=== PATIENT | male | born 1955 | race Caucasian/White ===

== ENCOUNTER → 2022-01-24 16:54 | Outpatient (CLI) | payer MEDICARE, SELFPAY ==
[2022-01-24 15:23] LABS: Chloride 107 mmol/L (98-107)
[2022-01-24 15:24] LABS: Potassium 4.5 mmoL/L (3.5-5.1); Sodium 141 mmol/L (136-145)
[2022-01-24 15:26] LABS: Alanine Aminotransferase 39 U/L (12-78); Albumin/Globulin Ratio 1.4 (1.1-1.8); Alkaline Phosphatase 91 U/L (38-126); Anion Gap 11.5 mEq/L (5-15); Aspartate Amino Transferase 49 U/L (17-59); Bilirubin,Total 0.5 mg/dl (0.2-1.3); Carbon Dioxide 27 mmol/L (22.0-30.0); Globulin 2.8 g/dL (1.3-3.2); Total Protein,Serum 6.8 g/dl (6.3-8.2)
[2022-01-24 15:27] LABS: Calcium 9.1 mg/dl (8.4-10.2); Chol/HDL Ratio 3.9 (1-3.5); Cholesterol 159 mg/dl (140-200); Glucose 131 mg/dl (74-100); HDL Cholesterol 41 mg/dl (40-60); Triglycerides 161 mg/dl (30-150); VLDL Cholesterol 32 mg/dL (0-40)
[2022-01-24 15:29] LABS: Basophils % 0.7 % (0.1-2.0); Eosinophils # 0.3 K/mm3 (0.0-0.4); Eosinophils % 4.1 % (0.1-12.0); Hematocrit 38.2 % (42.0-52.0); Hemoglobin 12.4 g/dL (14.1-18.0); Lymphocytes # 1.9 K/mm3 (0.7-4.5); Lymphocytes % 30.1 % (10-50); Mean Corpuscular HGB Conc 32.5 g/dL (31.8-35.4); Mean Corpuscular Hemoglobin 28.2 pg (27.0-31.2); Mean Corpuscular Volume 86.7 fl (80-94); Mean Platelet Volume 9.8 fl (7.4-10.4); Monocytes # 0.4 K/mm3 (0.1-1.0); Monocytes % 6.1 % (1.7-9.3); Neutrophils # 3.8 K/mm3 (1.8-7.8); Neutrophils % 59.1 % (37.0-80.0); Platelet Count 219 K/mm3 (142-424); Red Blood Count 4.41 M/mm3 (4.60-6.20); Red Cell Distribution Width 15.1 % (11.5-17.5); White Blood Count 6.4 K/mm3 (4.8-10.8)
[2022-01-24 15:40] LABS: Direct LDL Cholesterol 90.04 mg/dL (100-129)
[2022-01-24 18:10] LABS: Thyroid Stimulating Hormone 2.08 uIU/mL (0.465-4.68)
[2022-01-24 19:10] LABS: Blood Urea Nitrogen 18 mg/dl (9-20); Estimated Glomerular Filt Rate 97 ml/min (>60); GFR (African American) 117 ML/MIN (>60)
[2022-01-24 19:42] LABS: Prostate Specific Ag Screen 0.7 ng/ml (0.0-4.0)
[2022-01-30 11:39] LABS: Testosterone, Total, LC/MS 61.7 ng/dL (264.0-916.0); Testosterone,Free 0.7 pg/mL (6.6-18.1)
== END ==
PROVIDERS: PCP Family Medicine; Visit Provider Family Medicine
DX: E78.5 Hyperlipidemia, unspecified (principal); Z12.5 Encounter for screening for malignant neoplasm of prostate
CPT/HCPCS: 80053; 80061; 84402; 84403; 84443; 85025; G0103

== ENCOUNTER → 2022-09-08 09:38 | Outpatient (CLI) | payer MEDICARE, SELFPAY | PROVIDERS: PCP Family Medicine; Visit Provider Family Medicine | DX: N39.0 Urinary tract infection, site not specified (principal); N41.0 Acute prostatitis | CPT/HCPCS: 87086 ==

== ENCOUNTER → 2023-04-30 08:08 | Outpatient (CLI) | payer MEDICARE, SELFPAY ==
[2023-04-30 21:16] LABS: Alanine Aminotransferase 30 U/L (12-78); Albumin Level 4.1 g/dl (3.5-5.0); Albumin/Globulin Ratio 1.5 (1.1-1.8); Alkaline Phosphatase 87 U/L (38-126); Anion Gap 15.4 mEq/L (5-15); Aspartate Amino Transferase 33 U/L (17-59); Bilirubin,Total 0.4 mg/dl (0.2-1.3); Blood Urea Nitrogen 16 mg/dl (9-20); Calcium 8.7 mg/dl (8.4-10.2); Carbon Dioxide 24 mmol/L (22.0-30.0); Chloride 104 mmol/L (98-107); Chol/HDL Ratio 4.7 (1-3.5); Cholesterol 159 mg/dl (140-200); Estimated Glomerular Filt Rate 96 ml/min (>60); GFR (African American) 117 ML/MIN (>60); Globulin 2.8 g/dL (1.3-3.2); Glucose 109 mg/dl (74-100); HDL Cholesterol 34 mg/dl (40-60); Potassium 4.4 mmoL/L (3.5-5.1); Sodium 139 mmol/L (136-145); Total Protein,Serum 6.9 g/dl (6.3-8.2); Triglycerides 191 mg/dl (30-150); VLDL Cholesterol 38 mg/dL (0-40)
[2023-04-30 21:27] LABS: Direct LDL Cholesterol 90.35 mg/dL (100-129)
[2023-04-30 21:39] LABS: Basophils % 0.4 % (0.1-2.0); Eosinophils # 0.2 K/mm3 (0.0-0.4); Hematocrit 38.2 % (42.0-52.0); Hemoglobin 12.6 g/dL (14.1-18.0); Lymphocytes # 2.2 K/mm3 (0.7-4.5); Lymphocytes % 28.7 % (10-50); Mean Corpuscular Volume 94.1 fl (80-94); Mean Platelet Volume 10.9 fl (7.4-10.4); Monocytes # 0.5 K/mm3 (0.1-1.0); Monocytes % 5.8 % (1.7-9.3); Neutrophils # 4.9 K/mm3 (1.8-7.8); Neutrophils % 62.2 % (37.0-80.0); Platelet Count 175 K/mm3 (142-424); Red Blood Count 4.06 M/mm3 (4.60-6.20); Red Cell Distribution Width 14.1 % (11.5-17.5); White Blood Count 7.8 K/mm3 (4.8-10.8)
[2023-04-30 21:46] LABS: Prostate Specific Ag Screen 1.2 ng/ml (0.0-4.0); Thyroid Stimulating Hormone 2.69 uIU/mL (0.465-4.68)
== END ==
PROVIDERS: PCP Family Medicine; Visit Provider Family Medicine
DX: L40.50 Arthropathic psoriasis, unspecified (principal); Z12.5 Encounter for screening for malignant neoplasm of prostate; E78.5 Hyperlipidemia, unspecified; M25.551 Pain in right hip
CPT/HCPCS: 80053; 80061; 84443; 85025; G0103

== ENCOUNTER 2023-07-13 18:42 | Outpatient (CLI) | payer MEDICARE, SELFPAY ==
[2023-07-15 09:06] LABS: Testosterone,Total 33 ng/dL (264-916)
== END 2023-07-13 23:59 ==
LOC: LAB.DROPOF 18:43
PROVIDERS: PCP Family Medicine; Visit Provider Family Medicine
DX: E78.5 Hyperlipidemia, unspecified (principal)
CPT/HCPCS: 84403

== ENCOUNTER 2025-01-23 13:23 | Outpatient (CLI) | payer MEDICARE, SELFPAY ==
--- OUTSIDE RECORDS SUMMARY | 2019-07-07 06:30 | XMS_ITS | Continuity of Care Document ---
Author Organization [facility] Address [address] [place] [address] Phone Care Team Providers Care Rn Recovery Name Role Phone Trino OD, Isabel Unavailable Unavailable Allergies, Adverse Reactions, Alerts Substance Reaction Status Criticality No Known Allergies Active No Inform ation Medications Medication Instructions Dosage Effective Dates (start - stop) Status Comments moxifloxacin 0.5 % eye drops instill 1 drop by ophthalmic route 2 times every day 1 drop - Active Durezol 0.05 % eye drops instill 1 drop by ophthalmic route 2 times a day into the operative eye - Active Ilevro 0.3 % eye drops,suspension instill 1 drop by ophthalmic route every day to the operative eye - Active Vitamin C 500 mg tablet take 1 Capsule by oral route every day 1 Capsule - Active Stelara 90 mg/mL subcutaneous syringe inject 1 milliliter by subcutaneous route every 3 months - Active simvastatin 20 mg tablet take 1 tablet by oral route every day 20 MG - Active Prostate Health 160 mg-100 unit-100 mcg tablet take once a day - Active Aspirin Childrens 81 mg chewable tablet chew 1 tablet by oral route every day 81 MG - Active clobetasol 0.05 % topical cream apply by topical route 2 times every day a thin layer to the affected area(s) 0.00 - Active Co Q-10 100 mg capsule take 1 by oral route every day 1 - Active Procedures Procedure Date Post Op Visit Cataract Post Op Visit Cataract Ophthalmic Biometry W Iol Calculation Pr of Comp Unilateral Extracapsular Cataract Remov al With IOl Manual Or Flotation Tender Wo Endoscopic Post Op Visit Cataract Post Op Visit Cataract Extracapsular Cataract Remov al With IOl Manual Or Flotation Tender Wo Endoscopic OFFICE/OUTPATIENT VISIT, [facility] Ophthalmic Biometry W Iol Calculation Un ilateral Advance Directives Directive Yes / No Effective Date File Name No Information Encounters Encounter Description Practice Location Reason(s) For Visit Diagnoses Date Provider Providers Copied on Encounter [facility] , [address] [place], [address], tel:[phone] [facility] 3-4 week PHACO PO (chief complaint) Presence of intraocular lens 0 Trino Hall. [address] [place], [place], [id number] , [place]. tel:[phone] Other Provider: Dulce Joel, [address] [place] [address], [place], [address]. tel:[phone] erring Provider: Isabel Agrawal, [address] [place], [address] . tel:[phone] [facility] , [address] [place], [address], tel:[phone] [facility] 1 day Phaco (chief complaint) Pseudophakia 9 Emiliano López. [address] [place] [address], [address], [place], [place], [id number] . tel:[phone] Referring Provider: Rene Agrawal, [address] [place] [address] [address], [place], [address] . tel:[phone] [facility] , [address] [place], [address], tel:[phone] [facility] Nuclear sclerotic cataract of both eyesAge-relate d nuclear cataract, left eye 9 Emiliano López. [address] [place] [address], [address], [place], [place], [id number] . tel:[phone] Referring Provider: Rene Agrawal, [address] [place] [address] [address], [place], [address] . tel:[phone] [facility] , [address] [place], [address], [place] tel:[phone] [facility] No Information 9 [facility] [address] [place] [address], [address], [place], [place], [id number] . tel:[phone] [facility] , [address] [place], [address], [place] tel:[phone] [facility] 1 wk Phaco (chief complaint) Presence of intraocular lens 9 Trino Hall. [address] [place], [place], [id number] , [place]. tel:[phone] Referring Provider: Isabel Agrawal, [address] [place], [address] . tel:[phone] [facility] , [address] [place], [address], [place] tel:[phone] [facility] PO PCIOL OD (chief complaint) Presence of intraocular lens 9 Trino Hall. [address] [place], [place], [id number] , [place]. tel:[phone] Referring Provider: Isabel Agrawal, [address] [place], [address] . tel:[phone] [facility] , [address] [place], [address], [place] tel:[phone] [facility] Nuclear sclerotic cataract of both eyesAge-relate d nuclear cataract, right eye 9 [facility] [address] [place] [address], [address], [place], [place], [address] . tel:[phone] Referring Provider: Rene Agrawal, [address] [place] [address] [address], [place], [address] . tel:[phone] OFFICE/OUTPAT IENT VISIT, NEW [facility] , [address] [facility], [place], [address], [place] tel:[phone] ROS [facility] Cataract consult (chief complaint) Nuclear sclerotic cataract of both eyes 9 Emiliano López. [address], [address], [place], [place], [id number] . tel:[phone] Specialist : Dulce Joel, [address] [place] [address], [place], [address]. tel:[phone] erring Provider: Dulce Joel, [address] [place] [address], [place], [address]. tel:[phone] Family History Family Member Type Diagnosis Age At Onset Problem (finding) No family history of Gl aucoma Problem (finding) No family history of Re tinal disease Father Problem (finding) hypertension Father Problem (finding) cataract Problem (finding) No family history of Ca ncer, unknown Brother Problem (finding) Diabetes mellitus Payers Payer name Insurance type Covered green party ID Authoryolanda beaulieu(s) Twila Hernandez [facility] [place] [id number] Social History Type Description Quantity Date Captured Comments Alcohol Use Details Unknown Caffeine Use Details Unknown Tobacco Use Status No Information Smoking Status No Information Sex Male Chief Complaint And Reason For Visit From encounter dated '07/07/2019 10:30'. 3-4 week PHACO PO (chief complaint). Description: The 63 year old male presents for evaluation of 3-4 week PHACO PO in the left eye. Patient states his vision is good. He states he still has a floater in the right eye but other allison his vision has been good. He denies any flashes or eye pain. He has one more day of his drops. Reason For Referral Reason For Referral No Information Plan Of Treatment Date Type Action Status Goal Tobacco cessation counseling completed History Of Present Illness Encounter Date Complaint History Of Prese nt Illness 3-4 week PHACO PO The 63 year ol d male presents for evaluation of 3- 4 week PHACO PO in the left eye. Patient states his vision is good. He states he still has a floater in the right eye but other allison his vision has been good. He denies any flashes or eye pain. He has one more day of his drops. 1 day Phaco The 63 year old male presents for evaluation of 1 day Phaco in the left eye. Patient denies having any pain, flashes and new floaters. Patient feels that his vision good but states that he has a strong feeling that he needs to rub or dry his left eye. 1 wk Phaco The 63 year old male presents for evaluation of 1 wk Phaco in the right eye. Patient feels that his vision is much improved. Patient denies having any pain, flashes and floaters. PO PCIOL OD The 63 year old male presents for evaluation of same day PO PCIOL in the right eye. Pt states he feels 'fine and dandy' va is still a little blurry but denies issues with eye pain, flashes of light or floaters. Reiterated drop therapy schedule with pt - Moxi 2/0, Ilevro 1/0 and Dur 2/0. Cataract consult The 63 year old male presents for evaluation of Cataract consult in the right and left eyes. Patient states that he has known about the cataracts for about a year now. Patient states that over the last year his vision has significantly decreased in his right eye especially. Patient also has trouble driving at night due to glares. Patient denies having any pain, flashes and floaters. Patient feels that his vision has been worsening. Functional Status Date Functional Assessmen t No Information Instructions Date Instruction Additional Infor lillian Impression/Plan Related to Prese nce of intraocular lens Impression/Plan Related to Pseud ophakia Impression/Plan Related to Prese nce of intraocular lens Impression/Plan Related to Prese nce of intraocular lens Impression/Plan Assessments Type Assessment Date assessment Presence of intraocular lens Jul Patient Care Teams Name Effective Dates (start - stop) Status Members No Information
--- OUTSIDE RECORDS SUMMARY | 2020-09-07 10:39 | XMS_ITS | Encounter Summary ---
Author Organization [place] [address] Care Team Providers Care Asl Interpreter Name Role Phone Buster Su MD Primary Care Provider Encounter Details Date Type Department Care Team (Latest Contact Info) Description 09/07/2020 9:39 AM EST Hospital Encounter [facility] Referral Lab [address] [place], [place] [id number] Domo Ellis PA-C [address] [id number] Pain in right hip; Presence of right [...] 7:22 PM EDT Nathalia Salcedo RN * [place] Suicide Severity Rating Scale (Q shift for [...] EDT Office Visit [facility] [address] [place] [address] Negro Faria MD [address] [place] [address] documented as of this encounter Goals Goal [...] - 20 mm/hr 10/04/2020 12:19 PM EDT [facility] Blood Venipuncture / Unknown 10/04/2020 8:47 AM EDT 10/04/2020 8:47 AM EDT Domo Ellis PA-C HEMATOLOGY ORDERABLES Final Result [facility] [address] [id number] * (ABNORMAL) CBC WITH DIFF (10/04/2020 8:47 AM EDT) Pathologist [facility] WBC 7.5 3.7 - 10.3 x10(3)/mcL 10/04/2020 [...] 10/04/2020 11:36 AM EDT [facility] Comment:Neutrophils equals s egs plus bands Imm Gran% 0.3 % 10/04/2020 11:36 AM EDT [facility] Comment:Automated count of m etamyelocytes, myelocytes and promyelocytes. Lymph Percent 26.1 % 10/04/2020 11:36 AM EDT [facility] [place] Percent 8.2 % 10/04/2020 11:36 AM EDT [facility] Eos Percent 3.1 % 10/04/2020 11:36 AM EDT [facility] Baso Percent 0.8 % 10/04/2020 11:36 AM EDT [facility] Neut # 4.6 1.6 - 6.1 x10(3)/[facility] 10/04/2020 11:36 AM EDT [facility] [employer], [facility] Comment:Neutrophils equals s egs plus bands IMMGRAN# 0.0 0.0 - 0.1 x10(3)/mcL 10/04/2020 11:36 AM EDT [facility] Comment:Automated count of m etamyelocytes, myelocytes and promyelocytes. An absolute IG <0.1 is reported as 0.0. Lymph # 2.0 1.2 - 3.9 x10(3)/mcL 10/04/2020 11:36 AM EDT [facility] [place] # 0.6 0.3 - 0.9 x10(3)/[facility] 10/04/2020 11:36 AM EDT [facility] Eos# 0.2 0.0 - 0.5 x10(3)/[facility] 10/04/2020 11:36 AM EDT [facility], [facility] Baso # 0.1 0.0 - 0.1 x10(3)/[facility] 10/04/2020 11:36 AM EDT [facility] [employer], [facility] Blood Venipuncture / Unknown 10/04/2020 8:47 AM EDT 10/04/2020 8:47 AM EDT Domo Ellis PA-C HEMATOLOGY ORDERABLES Final Result [facility] [address] [facility] , [place] [address] * (ABNORMAL) C-REACTIVE PROTEIN (10/04/2020 8:47 AM EDT) CRP 13.16(H) <=5.00 mg/L 10/04/2020 12:01 PM EDT [facility] Blood Venipuncture / Unknown 10/04/2020 8:47 AM EDT 10/04/2020 8:47 AM EDT Domo Ellis PA-C CHEMISTRY ORDERABLES Final Result [facility] [address] [place] [address] , [place] [address] documented in this encounter Visit Diagnoses Diagnosis Pain in right hip Pain in joint, pelvic region and thigh Presence of right artificial hip joint Hip joint replacement by other means documented in this encounter Care Teams Asl Interpreter Relationship Specialty Start Date End Date Buster Su MD PCP - General Family Medicine 05/14/15 documented as of this encounter
--- OUTSIDE RECORDS SUMMARY | 2020-09-14 09:02 | XMS_ITS | Encounter Summary ---
Author Organization [place] [address] Care Team Providers Care Hatchery Supervisor Name Role Phone Buster Su MD Primary Care Provider [phone] Encounter Details Date Type Department Care Team (Latest Contact Info) Description 09/14/2020 9:02 AM EDT Hospital Encounter [facility] Referral Lab [address] [id number] Jemal Rey MD [address] [place] [address] Pain in right hip Social History Tobacco Use Types Packs/Day Years [...] 7:22 PM EDT Nathalia Salcedo RN * [place] Suicide Severity Rating Scale (Q shift for moderate and high) Question Answer Date of Assessment Author 1. In the past month, have y ou wished you were or wished you could go to sleep and not wake up? 0 04/04/2023 7:22 PM EDT Syke Bolanos RN 2. In the past month, [...] AM EDT Office Visit [facility] [address] [place] [address] Negro Faria MD [address] [place] [place] [address] [place] [address] Scheduled Orders Name Type Priority Associated Diagnoses Orde r Schedule GRAM STAIN (STAIN ONLY) Microbiology STAT Pain in right hip ONCE for 1 Occurrences starting 09/14/2020 until 10/19/2020 WOUND CULTURE (STAIN INCLUDED) Microbiology STAT Pain in right hip ONCE for 1 Occurrences starting 09/14/2020 until 10/19/2020 documented as of this encounter Goals Goal Patient Goal Type Associated Problems Recent Progress Patient-Stated? Author Blood Pressure < 140/90 Blood Pressure 114/70(12/27/ 2024 7:49 AM EST) Gloria Oliver Maintain a healthy diet, exercise regularly and maintain an ideal body weight General Gloria Oliver Stay Tobacco Free Lifestyle Gloria Oliver documented as of this encounter Visit Diagnoses Diagnosis Pain in right hip Pain in joint, pelvic region and thigh documented in this encounter Orders Lab Orders Without Results Count Last Ordered D ate First Ordered Date JOINT FLUID CELL COUNT 1 09/14/2020 documented in this encounter Care Teams Hatchery Supervisor Relationship Specialty Start Date End Date Buster Su MD PCP - General Family Medicine 05/14/15 documented as of this encounter
--- OUTSIDE RECORDS SUMMARY | 2020-09-21 10:03 | XMS_ITS | Encounter Summary ---
Author Organization [place] [address] Care Team Providers Care Crab Fisherman Name Role Phone Buster Su MD Primary Care Provider [phone] Encounter Details Date Type Department Care Team (Latest Contact Info) Description 09/21/2020 10:03 AM EDT Hospital Encounter SE Referral Lab 1 [place], [place] [id number] Domo Ellis PA-C [address] [place] [address] Pain in right hip; Presence of right [...] 7:22 PM EDT Nathalia Salcedo RN * [place] Suicide Severity Rating Scale (Q shift for [...] EDT Office Visit SEP H&V NPTFTT [address] [place] [address] Negro Faria MD [address] [place] [address] [place] [address] documented as of this encounter Goals Goal [...] RATE AUTOMATED (09/21/2020 10:12 AM EDT) Pathologist [facility] Sed Rate 24(H) 0 - 20 mm/hr 09/21/2020 12:12 PM EDT [facility] Blood Venipuncture / Unknown 09/21/2020 10:12 AM EDT 09/21/2020 10:12 AM EDT Domo Ellis PA-C HEMATOLOGY ORDERABLES Final Result [facility] [address] [place] [id number] * (ABNORMAL) CBC WITH DIFF (09/21/2020 10:12 AM EDT) Pathologist [facility] WBC 7.1 3.7 - 10.3 x10(3)/mcL 09/21/2020 [...] 09/21/2020 11:47 AM EDT [facility] Comment:Neutrophils equals s egs plus bands Imm Gran% 0.3 % 09/21/2020 11:47 AM EDT [facility], [facility] Comment:Automated count of m etamyelocytes, myelocytes and promyelocytes. Lymph Percent 27.7 % 09/21/2020 11:47 AM EDT [facility] Wake Percent 9.5 % 09/21/2020 11:47 AM EDT [facility] Eos Percent 3.1 % 09/21/2020 11:47 AM EDT [facility] Baso Percent 1.0 % 09/21/2020 11:47 AM EDT [facility] Neut # 4.1 1.6 - 6.1 x10(3)/[facility] 09/21/2020 11:47 AM EDT [facility], [facility] Comment:Neutrophils equals s egs plus bands IMMGRAN# 0.0 0.0 - 0.1 x10(3)/mcL 09/21/2020 11:47 AM EDT [facility], [facility] Comment:Automated count of m etamyelocytes, myelocytes and promyelocytes. An absolute IG <0.1 is reported as 0.0. Lymph # 2.0 1.2 - 3.9 x10(3)/mcL 09/21/2020 11:47 AM EDT [facility] Wake # 0.7 0.3 - 0.9 x10(3)/mcL 09/21/2020 11:47 AM EDT [facility], [facility] Eos# 0.2 0.0 - 0.5 x10(3)/[facility] 09/21/2020 11:47 AM EDT [facility], [facility] Baso # 0.1 0.0 - 0.1 x10(3)/[facility] 09/21/2020 11:47 AM EDT [facility], [facility] Blood Venipuncture / Unknown 09/21/2020 10:12 AM EDT 09/21/2020 10:12 AM EDT Domo Ellis PA-C HEMATOLOGY ORDERABLES Final Result [facility] [address] [facility] , [place] [address] * (ABNORMAL) C-REACTIVE PROTEIN (09/21/2020 10:12 AM EDT) CRP 22.62(H) <=5.00 mg/L 09/21/2020 3:55 PM EDT [facility] Blood Venipuncture / Unknown 09/21/2020 10:12 AM EDT 09/21/2020 10:12 AM EDT Domo Ellis PA-C CHEMISTRY ORDERABLES Final Result [facility] [address] [facility] , [place] [address] documented in this encounter Visit Diagnoses Diagnosis Pain in right hip Pain in joint, pelvic region and thigh Presence of right artificial hip joint Hip joint replacement by other means documented in this encounter Care Teams Crab Fisherman Relationship Specialty Start Date End Date Buster Su MD PCP - General Family Medicine 05/14/15 documented as of this encounter
--- OUTSIDE RECORDS SUMMARY | 2020-09-28 09:13 | XMS_ITS | Encounter Summary ---
Author Organization [place] [address] Care Team Providers Care Commis Chef Name Role Phone Buster Su MD Primary Care Provider Encounter Details Date Type Department Care Team (Latest Contact Info) Description 09/28/2020 9:13 AM EDT Hospital Encounter SE Referral Lab 1 [place], [place] [id number] Domo Ellis PA-C [address] [place] [address] Pain in right hip Social History Tobacco [...] 7:22 PM EDT Nathalia Salcedo RN * [place] Suicide Severity Rating Scale (Q shift for moderate and high) Question Answer Date of Assessment Author 1. In the past month, have y ou wished you were or wished you could go to sleep and not wake up? 0 04/04/2023 7:22 PM EDT Skye Bolanos, SHAYLA 2. In the past month, have y [...] EDT Office Visit SEP H&V NPTFTT [address] [place] [address] Negro Faria MD [address] [place] [address] [place] [address] documented as of this encounter Goals Goal [...] Last Ordered D ate First Ordered Date C-REACTIVE PROTEIN 1 09/28/2020 SEDIMENTATION RATE AUTOMATED 1 09/28/2020 documented in this encounter Care Teams Commis Chef Relationship Specialty Start Date End Date Buster Su MD PCP - General Family Medicine 05/14/15 documented as of this encounter
[2025-01-23 15:39] LABS: Hematocrit 37.7 % (42.0-52.0); Hemoglobin 11.3 g/dL (14.1-18.0); Immature Granulocytes % 0.2 %; Mean Corpuscular HGB Conc 30.0 g/dL (31.8-35.4); Mean Corpuscular Hemoglobin 26.3 pg (27.0-31.2); Mean Corpuscular Volume 87.7 fl (80-94); Nucleated Red Blood Cells % 0 %; Platelet Count 234 K/mm3 (142-424); Red Blood Count 4.30 M/mm3 (4.60-6.20); Red Cell Distribution Width-SD 49.4 fL; White Blood Count 10.3 K/mm3 (4.8-10.8)
[2025-01-23 16:08] LABS: Alanine Aminotransferase 20 U/L (12-78); Albumin Level 3.6 g/dl (3.5-5.0); Albumin/Globulin Ratio 1.2 (1.1-1.8); Alkaline Phosphatase 85 U/L (38-126); Aspartate Amino Transferase 23 U/L (17-59); Bilirubin,Total 0.4 mg/dl (0.2-1.3); Blood Urea Nitrogen 22 mg/dl (9-20); Calcium 9.2 mg/dl (8.4-10.2); Carbon Dioxide 27 mmol/L (22.0-30.0); Chloride 106 mmol/L (98-107); Cholesterol 142 mg/dl (140-200); Creatinine,Serum 1.10 mg/dl (0.66-1.25); Estimated Glomerular Filt Rate 66 ml/min (>60); GFR (African American) 80 ML/MIN (>60); Globulin 3.1 g/dL (1.3-3.2); Glucose 132 mg/dl (74-100); Sodium 140 mmol/L (136-145); Total Protein,Serum 6.7 g/dl (6.3-8.2); Triglycerides 132 mg/dl (30-150)
[2025-01-23 16:10] LABS: Anion Gap 12.1 mEq/L (5-15); HDL Cholesterol 37 mg/dl (40-60); Potassium 5.1 mmoL/L (3.5-5.1)
[2025-01-23 16:56] LABS: Hepatitis C Ab Qual. W/ RFX NEGATIVE (Negative)
[2025-01-24 05:09] LABS: Testosterone,Total 180 ng/dL (264-916)
--- OUTSIDE RECORDS SUMMARY | 2025-01-26 13:32 | XMS_ITS | Clinical Summary ---
Author Organization [facility] Address [facility] [place] [address] Care Team Providers Care Public Speaking Instructor Name Role Phone Domo Ellis PA-C Unavailable [phone] Social History Tobacco Use Types Packs/Day Years Used Date Smoking Tobacco: Never Assessed Sex and Gender Information Value Date Recorded Sex Assigned at Not on file Legal Sex Male 8:14 PM EDT Gender Identity Not on file Sexual Orientation Not on file Plan of Treatment Health Maintenance Due Date Last Done Comments Hepatitis C Screening 1955 DTap,Tdap,and Td (1 - Tdap) 10/01/1966 Colonoscopy 10/01/2000 PSA YEARLY 10/01/2005 Pneumococcal 50+ (1 of 1 - PCV) 10/01/2005 Shingrix (#1) 10/01/2005 Influenza Vaccine (#1) 2025 RSV Vaccine (60+ or ) (1 - 1-dose 75+ series) 10/01/2030 HPV Aged Out No longer eligi ble based on patient's age to complete this topic Meningococcal conjugate johnnie nt 4 (MCV4) Aged Out No longer eligible b ased on patient's age to complete this topic RSV Immunization (<20 months) Aged Out No longer eligible based on patient's age to complete this topic Care Teams Public Speaking Instructor Relationship Specialty Start Date End Date Domo Ellis PA-C PCP - MSSP Attributed Physician 07/02/21
--- OUTSIDE RECORDS SUMMARY | 2025-01-26 13:32 | XMS_ITS | Referral Summary ---
Author Organization [facility] Address [facility] [address] [place] [address] Care Team Providers Care Financial Management Analyst Name Role Phone Domo Ellis PA-C Unavailable Social History Tobacco Use Types Packs/Day Years Used Date Smoking Tobacco: Never Assessed Sex and Gender Information Value Date Recorded Sex Assigned at Not on file Legal Sex Male 8:14 PM EDT Gender Identity Not on file Sexual Orientation Not on file Plan of Treatment Not on file Care Teams Financial Management Analyst Relationship Specialty Start Date End Date Domo Ellis PA-C PCP - MSSP Attributed Physician 07/02/21
== END 2025-01-23 23:59 | disposition home or self-care (01) ==
LOC: LAB.DROPOF 01-26 13:24
PROVIDERS: PCP Family Medicine; Visit Provider Family Medicine
DX: E78.5 Hyperlipidemia, unspecified (principal); R79.89 Other specified abnormal findings of blood chemistry; M54.9 Dorsalgia, unspecified; R31.9 Hematuria, unspecified; Z11.59 Encounter for screening for other viral diseases; Z12.5 Encounter for screening for malignant neoplasm of prostate
CPT/HCPCS: 80053; 80061; 84403; 85025; 86803; 87086; 87088; 87186; 87389; G0103

== ENCOUNTER 2025-02-13 11:10 | Outpatient (CLI) | payer MEDICARE, SELFPAY ==
--- OUTSIDE RECORDS SUMMARY | 2020-09-07 10:39 | XMS_ITS | Encounter Summary ---
Author Organization [place] [address] Care Team Providers Care Waterside Worker Name Role Phone Buster Su MD Primary Care Provider [phone] Encounter Details Date Type Department Care Team (Latest Contact Info) Description 09/07/2020 9:39 AM EST Hospital Encounter [facility] Referral Lab 1 [place], [place] [id number] Domo Ellis PA-C [address] [id number] Pain in right hip; Presence of right artificial hip joint Social History Tobacco Use Types Packs/Day Years Used Date Smoking Tobacco: Some Days Cigarettes 0.5 45.8 Started: 01/30/1972; Last attempted to quit: 11/08/2017 Cigars Passive Smoke Exposure: Past Smokeless Tobacco: Former Chew Quit: 07/02/1976 Comments:quit in 2018 - occa sional cigar now Alcohol Use Standard Drinks/Week Comments Yes 0 (1 standard drink = 0.6 oz pur e alcohol) social Overall Financial Resource Strain (CARDIA) Answe r Date Recorded How hard is it for you to pa y for the very basics like food, housing, medical care, and heating? Not hard at all 04/05/2023 PHQ-2 Answer Date Recorded PHQ-2 Total Score 0 04/05/2023 Exercise Vital Sign Answer Date Recorde d On average, how many days pe r week do you engage in moderate to strenuous exercise (like a brisk walk)? 3 days 04/05/2023 On average, how many minutes do you engage in exercise at this level? 60 min 04/05/2023 Hunger Vital Sign Answer Date Recorded Within the past 12 months, y ou worried that your food would run out before you got the money to buy more. Never true 04/05/20 23 Within the past 12 months, t he food you bought just didn't last and you didn't have money to get more. Never true 04/05/2023 PRAPARE - Transportation Answer Date Re corded In the past 12 months, has l ack of transportation kept you from medical appointments or from getting medications? No 10/2022 In the past 12 months, has l ack of transportation kept you from meetings, work, or from getting things needed for daily living? No 04/05/2023 Sex and Gender Information Value Date Recorded Sex Assigned at Not on file Legal Sex Male 12:31 AM EDT Gender Identity Not on file Sexual Orientation Not on file COVID-19 Exposure Response Date Recorded In the last 10 days, have yo u been in contact with someone who was confirmed or suspected to have Coronavirus/COVID-19? No / Unsure 01/19/2023 10:22 AM EDT documented as of this encounter Functional Status * Alcohol Screening Score Answer Date of Assessment Author 1 04/04/2023 11:00 PM EDT Rajeev Moran RN * Drug Screening Score Answer Date of Assessment Author 0 04/04/2023 11:00 PM EDT Rajeev Moran RN * Question Answer Date of Assessment Author How often do you have a drin k containing alcohol? 1 04/04/2023 11:00 PM EDT Karey Moran RN How many drinks containing alcohol do you have on a typical day when you are drinking? 0 04/04/2023 11:00 PM EDT Karey Moran RN How often do you have six or more drinks on one occasion? 0 04/04/2023 11:00 PM EDT Rajeev Braxton RN AUDIT-C to Determine Rows 4-10 0 04/04/2023 11:00 PM EDT Rajeev Moran RN * Question Answer Date of Assessment Author Little interest or pleasure in doing things 0 04/05/2023 4:39 PM EDT Lynne Reese RN Feeling down, depressed, or hopeless 0 04/05/2023 4:39 PM EDT Lynne Reese RN PHQ-2 Total Score 0 04/05/2023 4:39 PM EDT Lynne Reese RN * PHQ-9 Total Score Answer Date of Assessment Author 0 04/05/2023 4:39 PM EDT Yunier Reese RN * Suicide Severity Rating Answer Date of Assessment Author No Risk 04/04/2023 7:22 PM EDT Nathalia Salcedo RN * [place] Suicide Severity Rating Scale (Q shift for moderate and high) Question Answer Date of Assessment Author 1. In the past month, have y ou wished you were or wished you could go to sleep and not wake up? 0 04/04/2023 7:22 PM EDT Skye Bolanos RN 2. In the past month, have y ou actually had any thoughts of killing yourself? (If no, skip to question 6) 0 04/04/2023 7:22 PM EDT Skye Salcedo RN 6. Have you ever done anythi ng, started to do anything, or prepared to do anything to end your life? 0 04/04/2023 7:22 PM EDT Skye Molina RN documented as of this encounter Plan of Treatment Upcoming Encounters Date Type Department Care Team (Late st Contact Info) Description 03/13/2025 9:00 AM EDT Office Visit [facility] [address] [place] [address] Negro Faria MD [address] [place] [address] documented as of this encounter Goals Goal Patient Goal Type Associated Problems Recent Progress Patient-Stated? Author Blood Pressure < 140/90 Blood Pressure 114/70(2023 7:49 AM EST) Gloria Oliver Maintain a healthy diet, exercise regularly and maintain an ideal body weight General Gloria Oliver Stay Tobacco Free Lifestyle Gloria Oliver documented as of this encounter Results * (ABNORMAL) SEDIMENTATION RATE AUTOMATED (10/04/2020 8:47 AM EDT) Sed Rate 33(H) 0 - 20 mm/hr 10/04/2020 12:19 PM EDT [facility] Blood Venipuncture / Unknown 10/04/2020 8:47 AM EDT 10/04/2020 8:47 AM EDT Domo Ellis PA-C HEMATOLOGY ORDERABLES Final Result [facility] [address] [id number] * (ABNORMAL) CBC WITH DIFF (10/04/2020 8:47 AM EDT) Pathologist [facility] WBC 7.5 3.7 - 10.3 x10(3)/mcL 10/04/2020 11:36 AM EDT [facility] RBC 5.05 4.60 - 6.10 x10(6)/mcL 10/04/2020 11:36 AM EDT [facility] Hgb 13.6(L) 13.7 - 17.5 g/dL 10/04/2020 11:36 AM EDT [facility] Hct 45.8 40.0 - 51.0 % 10/04/2020 11:36 AM EDT [facility] MCV 90.7 80.0 - 100.0 fL 10/04/2020 11:36 AM EDT [facility] MCH 26.9 26.0 - 34.0 pg 10/04/2020 11:36 AM EDT [facility] MCHC 29.7(L) 30.7 - 35.5 g/dL 10/04/2020 11:36 AM EDT [facility] RDW 14.9 <=14.9 % 10/04/2020 11:36 AM EDT [facility] Platelet 216 155 - 369 x10(3)/mcL 10/04/2020 11:36 AM EDT [facility] MPV 12.3 8.8 - 12.5 fL 10/04/2020 11:36 AM EDT [facility] Neut Percent 61.5 % 10/04/2020 11:36 AM EDT [facility] Comment:Neutrophils equals s egs plus bands Imm Gran% 0.3 % 10/04/2020 11:36 AM EDT [facility] Comment:Automated count of m etamyelocytes, myelocytes and promyelocytes. Lymph Percent 26.1 % 10/04/2020 11:36 AM EDT [facility] [place] Percent 8.2 % 10/04/2020 11:36 AM EDT [facility] Eos Percent 3.1 % 10/04/2020 11:36 AM EDT [facility] Baso Percent 0.8 % 10/04/2020 11:36 AM EDT [facility] Neut # 4.6 1.6 - 6.1 x10(3)/[facility] 10/04/2020 11:36 AM EDT [facility], [facility] Comment:Neutrophils equals s egs plus bands IMMGRAN# 0.0 0.0 - 0.1 x10(3)/mcL 10/04/2020 11:36 AM EDT [facility] Comment:Automated count of m etamyelocytes, myelocytes and promyelocytes. An absolute IG <0.1 is reported as 0.0. Lymph # 2.0 1.2 - 3.9 x10(3)/mcL 10/04/2020 11:36 AM EDT [facility] [place] # 0.6 0.3 - 0.9 x10(3)/[facility] 10/04/2020 11:36 AM EDT [facility] Eos# 0.2 0.0 - 0.5 x10(3)/[facility] 10/04/2020 11:36 AM EDT [facility], [facility] Baso # 0.1 0.0 - 0.1 x10(3)/[facility] 10/04/2020 11:36 AM EDT [facility] [employer], [facility] Blood Venipuncture / Unknown 10/04/2020 8:47 AM EDT 10/04/2020 8:47 AM EDT Domo Ellis PA-C HEMATOLOGY ORDERABLES Final Result [facility], [facility] [address] [facility] , [place] [address] * (ABNORMAL) C-REACTIVE PROTEIN (10/04/2020 8:47 AM EDT) CRP 13.16(H) <=5.00 mg/L 10/04/2020 12:01 PM EDT [facility] Blood Venipuncture / Unknown 10/04/2020 8:47 AM EDT 10/04/2020 8:47 AM EDT Domo Ellis PA-C CHEMISTRY ORDERABLES Final Result [facility] [address] [place] [address] , [place] [address] documented in this encounter Visit Diagnoses Diagnosis Pain in right hip Pain in joint, pelvic region and thigh Presence of right artificial hip joint Hip joint replacement by other means documented in this encounter Care Teams Waterside Worker Relationship Specialty Start Date End Date Buster Su MD PCP - General Family Medicine 05/14/15 documented as of this encounter
--- OUTSIDE RECORDS SUMMARY | 2020-09-14 09:02 | XMS_ITS | Encounter Summary ---
Author Organization [place] [address] Care Team Providers Care Licensed Marriage And Family Therapist Name Role Phone Buster Su MD Primary Care Provider Encounter Details Date Type Department Care Team (Latest Contact Info) Description 09/14/2020 9:02 AM EDT Hospital Encounter [facility] Referral Lab 1 [place] [address] Jemal Rey MD [address] [place] [address] Pain in right hip Social [...] 7:22 PM EDT Nathalia Salcedo RN * [place] Suicide Severity Rating Scale (Q shift for [...] AM EDT Office Visit [facility] [address] [place] [address] Negro Faria MD [address] [place] [address] [place] [address] Scheduled Orders Name Type Priority [...] 09/14/2020 documented in this encounter Care Teams Licensed Marriage And Family Therapist Relationship Specialty Start Date End Date Buster Su MD PCP - General Family Medicine 05/14/15 documented as of this encounter
--- OUTSIDE RECORDS SUMMARY | 2020-09-21 10:03 | XMS_ITS | Encounter Summary ---
Author Organization [place] [address] Care Team Providers Care Wild Animal Caretaker Name Role Phone Buster Su MD Primary Care Provider [phone] Encounter Details Date Type Department Care Team (Latest Contact Info) Description 09/21/2020 10:03 AM EDT Hospital Encounter SE Referral Lab 1 [place], [place] [id number] Domo Ellis PA-C [address] [place] [address] Pain in right hip; Presence of right [...] 7:22 PM EDT Nathalia Salcedo RN * [place] Suicide Severity Rating Scale (Q shift for [...] EDT Office Visit SEP H&V NPTFTT [address] [place] [address] Negro Faria MD [address] [place] [address] [place] [address] documented as of this encounter Goals Goal Patient Goal Type Associated Problems Recent Progress Patient-Stated? Author Blood Pressure < 140/90 Blood Pressure 114/70(2023 7:49 AM EST) Gloria Oliver Maintain a healthy diet, exercise regularly and maintain an ideal body weight General Gloria Oliver Stay Tobacco Free Lifestyle Gloria Oliver documented as of this encounter Results * (ABNORMAL) SEDIMENTATION RATE AUTOMATED (09/21/2020 10:12 AM EDT) Pathologist [facility] Sed Rate 24(H) 0 - 20 mm/hr 09/21/2020 12:12 PM EDT [facility] Blood Venipuncture / Unknown 09/21/2020 10:12 AM EDT 09/21/2020 10:12 AM EDT Domo Ellis PA-C HEMATOLOGY ORDERABLES Final Result [facility] [address] [place] [id number] * (ABNORMAL) CBC WITH DIFF (09/21/2020 10:12 AM EDT) Pathologist [facility] WBC 7.1 3.7 - 10.3 x10(3)/mcL 09/21/2020 11:47 AM EDT [facility] RBC 4.90 4.60 - 6.10 x10(6)/mcL 09/21/2020 11:47 AM EDT [facility] Hgb 13.4(L) 13.7 - 17.5 g/dL 09/21/2020 11:47 AM EDT [facility] Hct 43.2 40.0 - 51.0 % 09/21/2020 11:47 AM EDT [facility] MCV 88.2 80.0 - 100.0 fL 09/21/2020 11:47 AM EDT [facility] MCH 27.3 26.0 - 34.0 pg 09/21/2020 11:47 AM EDT [facility] MCHC 31.0 30.7 - 35.5 g/dL 09/21/2020 11:47 AM EDT [facility] RDW 14.6 <=14.9 % 09/21/2020 11:47 AM EDT [facility] Platelet 232 155 - 369 x10(3)/mcL 09/21/2020 11:47 AM EDT [facility] MPV 11.3 8.8 - 12.5 fL 09/21/2020 11:47 AM EDT [facility] Neut Percent 58.4 % 09/21/2020 11:47 AM EDT [facility] Comment:Neutrophils equals s egs plus bands Imm Gran% 0.3 % 09/21/2020 11:47 AM EDT [facility], [facility] Comment:Automated count of m etamyelocytes, myelocytes and promyelocytes. Lymph Percent 27.7 % 09/21/2020 11:47 AM EDT [facility] White Percent 9.5 % 09/21/2020 11:47 AM EDT [facility] Eos Percent 3.1 % 09/21/2020 11:47 AM EDT [facility] Baso Percent 1.0 % 09/21/2020 11:47 AM EDT [facility] Neut # 4.1 1.6 - 6.1 x10(3)/[facility] 09/21/2020 11:47 AM EDT [facility], [facility] Comment:Neutrophils equals s egs plus bands IMMGRAN# 0.0 0.0 - 0.1 x10(3)/mcL 09/21/2020 11:47 AM EDT [facility], [facility] Comment:Automated count of m etamyelocytes, myelocytes and promyelocytes. An absolute IG <0.1 is reported as 0.0. Lymph # 2.0 1.2 - 3.9 x10(3)/mcL 09/21/2020 11:47 AM EDT [facility] White # 0.7 0.3 - 0.9 x10(3)/mcL 09/21/2020 11:47 AM EDT [facility] Eos# 0.2 0.0 - 0.5 x10(3)/[facility] 09/21/2020 11:47 AM EDT [facility], [facility] Baso # 0.1 0.0 - 0.1 x10(3)/[facility] 09/21/2020 11:47 AM EDT [facility], [facility] Blood Venipuncture / Unknown 09/21/2020 10:12 AM EDT 09/21/2020 10:12 AM EDT Domo Ellis PA-C HEMATOLOGY ORDERABLES Final Result [facility], [facility] [address] [facility] , [place] [address] * (ABNORMAL) C-REACTIVE PROTEIN (09/21/2020 10:12 AM EDT) CRP 22.62(H) <=5.00 mg/L 09/21/2020 3:55 PM EDT [facility] Blood Venipuncture / Unknown 09/21/2020 10:12 AM EDT 09/21/2020 10:12 AM EDT Domo Ellis PA-C CHEMISTRY ORDERABLES Final Result [facility] [address] [facility] , [place] [address] documented in this encounter Visit Diagnoses Diagnosis Pain in right hip Pain in joint, pelvic region and thigh Presence of right artificial hip joint Hip joint replacement by other means documented in this encounter Care Teams Wild Animal Caretaker Relationship Specialty Start Date End Date Buster Su MD PCP - General Family Medicine 05/14/15 documented as of this encounter
--- OUTSIDE RECORDS SUMMARY | 2020-09-28 09:13 | XMS_ITS | Encounter Summary ---
Author Organization [place] [address] Care Team Providers Care Reheater Name Role Phone Buster Su MD Primary Care Provider [phone] Encounter Details Date Type Department Care Team (Latest Contact Info) Description 09/28/2020 9:13 AM EDT Hospital Encounter SE Referral Lab 1 [place], [place] [phone] Domo Ellis PA-C [address] [place] [address] Pain in right hip Social History Tobacco [...] 7:22 PM EDT Nathalia Salcedo RN * [place] Suicide Severity Rating Scale (Q shift for [...] EDT Office Visit SEP H&V NPTFTT [address] [place] [address] Negro Faria MD [address] [place] [address] [place] [address] documented as of this encounter [...] 09/28/2020 documented in this encounter Care Teams Reheater Relationship Specialty Start Date End Date Buster Su MD PCP - General Family Medicine 05/14/15 documented as of this encounter
[2025-02-13 16:03] LABS: Prostate Specific Ag, Diagnost 5.18 ng/ml (0.0-4.0)
--- OUTSIDE RECORDS SUMMARY | 2025-02-16 12:44 | XMS_ITS | Referral Summary ---
Author Organization [facility] Address [facility] [address] [place] [address] Care Team Providers Care Lighter Captain Name Role Phone Domo Ellis PA-C Unavailable Social History Tobacco Use Types Packs/Day Years Used Date Smoking Tobacco: Never Assessed Sex and Gender Information Value Date Recorded Sex Assigned at Not on file Legal Sex Male 8:14 PM EDT Gender Identity Not on file Sexual Orientation Not on file Plan of Treatment Not on file Care Teams Lighter Captain Relationship Specialty Start Date End Date Domo Ellis PA-C PCP - MSSP Attributed Physician 07/02/21
--- OUTSIDE RECORDS SUMMARY | 2025-02-16 12:44 | XMS_ITS | Clinical Summary ---
Author Organization [facility] Address [facility] [place] [address] Care Team Providers Care Bicycle Racer Name Role Phone Domo Ellis PA-C Unavailable [...] age to complete this topic Care Teams Bicycle Racer Relationship Specialty Start Date End Date Domo Ellis PA-C PCP - MSSP Attributed Physician 07/02/21
--- OUTSIDE RECORDS SUMMARY | 2025-02-16 12:45 | XMS_ITS | Continuity of Care Document ---
Author Organization [facility] Address [facility] [place] [address] Phone Care Team Providers Care Restrooms Or Lounges Maid Name Role Phone Buster Su MD Primary Care Provider [phone] Encounters Date Type Department Care Team Description 07/24/2024 Telephone SEP H&V NPTFTT [address] [place] [address] Negro Faria MD Results (echo) 07/24/2024 7:54 AM EST - 07/24/2024 11:59 PM EST Hospital Encounter [facility] E[facility] [address] [place] [address] Negro Faria MD MOHIT (obstructive sleep apnea) Discharge Disposition: Home or Self Care 06/27/2024 8:00 AM EST Office Visit SEP H&V NPTFTT [address] [place] [address] Negro Faria MD MOHIT (obstructive sleep apnea) (Primary Dx) 06/22/2024 Travel 06/05/2024 11:40 AM EST - 06/05/2024 11:59 PM EST Hospital Encounter [facility] [place] [address] Actinic keratosis (Primary Dx); Exposure to sunlight, subsequent encounter; Exposure to sunlight, initial encounter; Tinea cruris; Psoriasis vulgaris; Encounter for long-term (current) use of medications; Melanocytic nevus of trunk; Other melanin hyperpigmentation; Other seborrheic keratosis; Other benign neoplasm of skin of left lower limb, including hip; Other specified counseling Discharge Disposition: Home or Self Care 02/01/2024 Travel 01/16/2024 Travel 06/05/2023 11:39 AM EST - 06/05/2023 11:59 PM EST Hospital Encounter [facility] [place] [address] Melanocytic nevus of trunk (Primary Dx); Other melanin hyperpigmentation; Other seborrheic keratosis; Other specified counseling; Psoriasis vulgaris; 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 Discharge Disposition: Home or Self Care 04/06/2023 9:30 AM EDT - 04/06/2023 10:30 AM EDT Surgery [facility] MIGRATORY [facility] [place] [address] Pavan Byrd MD CORONARY ANGIOGRAM / CARDIAC CATHETERIZATION 04/04/2023 7:09 PM EDT - 04/06/2023 5:53 PM EDT Hospital Encounter EDG 4D TCU [place] [id number] Greta Trevino MD Goetz, Kevin R, MD Atypical chest pain (Primary Dx); Chest pain, unspecified type Discharge Disposition: Home or Self Care 04/05/2023 Telephone [facility] [place] [id number] Batool Hopkins MD Prior Authorization ([facility]) 04/04/2023 Travel 01/19/2023 Travel 01/19/2023 10:23 AM EDT - 01/19/2023 11:59 PM EDT Hospital Encounter [facility] [address] [place] [address] Indra Coronel MD Gross hematuria Discharge Disposition: Home or Self Care 01/19/2023 9:30 AM EDT Office Visit SEP H&V NPTFTT [address] [place] [address] Weston Coles MD Primary hypertension (Primary Dx); Mixed hyperlipidemia; Family history of early CAD; Atypical chest pain; Rapid palpitations 01/04/2023 Orders Only [facility] [place] [address] [place] [address] Therese Warren Status post total replacement of right hip (Primary Dx) 12/04/2022 1:15 PM EDT Ancillary Procedure Fanta Bowden [address] [place] [address] Domo Ellis, RYLEEC Status post total replacement of right hip 12/04/2022 1:00 PM EDT Office Visit Fanta [place] [address] [place] [address] Domo Ellis PA-C Status post total replacement of right hip (Primary Dx) 08/08/2022 Travel 08/08/2022 11:42 AM EST - 08/08/2022 11:59 PM EST Hospital Encounter [facility] [address] [place] [address] Psoriatic arthritis (HCC) (Primary Dx) Discharge Disposition: Home or Self Care 07/31/2022 11:15 AM EST Ancillary Procedure Fanta [place] [address] [place] [facility] Domo Ellis, DARSHAN-C Status post revision of total hip 07/31/2022 11:00 AM EST Office Visit Fanta [address] [place] [address] Domo Ellis PA-C Status post revision of total hip (Primary Dx) 05/03/2022 Travel 05/03/2022 11:43 AM EDT - 05/03/2022 11:59 PM EDT Hospital Encounter [facility] [address] [place] [address] Psoriatic arthritis (HCC) (Primary Dx) Discharge Disposition: Home or Self Care 02/08/2022 Travel 02/08/2022 12:25 PM EDT - 02/08/2022 11:59 PM EDT Hospital Encounter [facility] [address] [place] [address] Psoriatic arthritis (HCC) (Primary Dx) Discharge Disposition: Home or Self Care 01/06/2022 9:30 AM EDT Office Visit SEP H&V NPTFTT [address] [place] [address] Weston Coles MD Atypical chest pain (Primary Dx); Family history of early CAD; Primary hypertension; Mixed hyperlipidemia 12/19/2021 11:30 AM EDT Ancillary Procedure [address] [address] Domo Ellis PA-C Status post total replacement of right hip 12/19/2021 11:15 [place] [address] Domo Ellis PA-C Status post revision of total hip (Primary Dx) 12/01/2021 Orders Only [place] [address] Brayan Gao, PharmD 11/17/2021 Travel 11/17/2021 11:41 AM EDT - 11/17/2021 11:59 PM EDT Hospital Encounter [facility] [address] [place] [phone] Psoriatic arthritis (HCC) (Primary Dx) Discharge Disposition: Home or Self Care 08/25/2021 Travel 08/25/2021 12:13 PM EST - 08/25/2021 11:59 PM EST Hospital Encounter [facility] [address] [place] [address] Psoriatic arthritis (HCC) (Primary Dx) Discharge Disposition: Home or Self Care 06/21/2021 Orders Only [facility] [address] [place] [address] Domo Ellis PA-C Status post total replacement of right hip (Primary Dx) 06/20/2021 2:45 PM EST Ancillary Procedure [address] [address] Domo Ellis PA-C Right hip pain 06/20/2021 2:30 PM EST Office Visit [address] [address] Domo Ellis PA-C Right hip pain (Primary Dx) 06/02/2021 Travel 06/02/2021 11:53 AM EST - 06/02/2021 11:59 PM EST Hospital Encounter [facility] [address] [place] [address] Psoriatic arthritis (HCC) (Primary Dx) Discharge Disposition: Home or Self Care 05/30/2021 [place] [address] Jemal George MD Orders 05/12/2021 11:00 [place] [address] Kathi Soto ATC Status post total replacement of right hip (Primary Dx) 05/06/2021 9:30 AM [place] [address] Jemal George MD Status post total replacement of right hip 05/06/2021 9:45 AM EDT Office Visit [place] [phone] Jemal George MD Status post total replacement of right hip (Primary Dx) 04/28/2021 11:15 AM EDT Office Visit [facility] [address] [place] [address] Domo Ellis PA-C Status post total replacement of right hip (Primary Dx) 04/21/2021 10:59 AM EDT - 04/23/2021 2:11 PM EDT Hospital Encounter EDG 7D [facility] [place] [address] Jemal George MD Presence of right artificial hip joint Discharge Disposition: Home Health Care Svc 04/21/2021 Telephone [place] [phone] Jemal George MD Medication Question (DOSAGE COMBINATION ) 04/21/2021 Travel 04/21/2021 2:00 PM EDT - 04/21/2021 4:00 PM EDT [facility] [place] [address] Jemal George MD TOTAL HIP OR CHERYLE ARTHROPLASTY REVISION -POSTERIOR LATERAL/ POSITION 04/21/2021 2:29 PM EDT Anesthesia Event ED[facility] 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 [address] Covid19, Edg Lab [place] Chavez Pre-op testing; Encounter for laboratory testing for COVID-19 virus Discharge Disposition: Home or Self Care 04/15/2021 12:05 PM EDT [place] [address] Jemal George MD Left hip pain 04/15/2021 11:30 [place] [address] Domo Ellis PA-C Left hip pain (Primary Dx) 04/13/2021 [place] [address] Quiana Falk PA-C 04/13/2021 Travel 04/13/2021 8:42 AM EDT - 04/13/2021 1:33 PM EDT Hospital Encounter [facility] Draw [facility] [address] [address] [address] [place] [address] Presence of right artificial hip joint Discharge Disposition: Home or Self Care 04/13/2021 1:34 PM EDT - 04/13/2021 11:59 PM EDT Hospital Encounter [address] [place] [phone] Domo Ellis PA-C Presence of right artificial hip joint Discharge Disposition: Home or Self Care 04/13/2021 8:15 AM EDT Office Visit [facility] [address] [place] [phone] Jemal Rey MD Right hip pain (Primary Dx); Presence of right artificial hip joint 04/12/2021 Orders [facility] [address] [place], [place] [id number] Domo Ellis PA-C Presence of right artificial hip joint (Primary Dx) 04/11/2021 1:45 PM EDT Office Visit [address] [address] Eric Christianson MD Presence of right artificial hip joint (Primary Dx) 04/08/2021 11:17 AM EDT - 04/08/2021 11:59 PM EDT Hospital Encounter [facility] [facility] [address] [place] [phone] Gay Solares APRN Hummel, Matthew T, MD Discharge Disposition: Home or Self Care 04/08/2021 Travel 04/08/2021 10:48 AM EDT - 04/08/2021 11:16 AM EDT Hospital Encounter EDG PRE-ADMIT TESTING [facility] 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, subsequent encounter (Primary Dx); Pain; Insomnia, unspecified type; Constipation, unspecified constipation type; Healthcare maintenance; Itching; Postoperative anemia; Nausea; DVT prophylaxis; Hyperlipidemia, unspecified hyperlipidemia type; Seasonal allergies; Morbid obesity with BMI of 40.0-44.9, adult (HCC); Infection of prosthetic joint, initial encounter; History of removal of joint prosthesis of right hip due to infection Discharge Disposition: Home or Self Care 03/08/2021 Orders Only [facility] [address] [facility] 100 [place] [address] Jemal George MD Presence of right artificial hip joint (Primary Dx) 02/01/2021 5:30 PM EDT - 02/24/2021 1:45 PM EDT Hospital Encounter FTT [address] [address] Francisca Munoz MD Insomnia, unspecified type (Primary Dx); Pain; Constipation, unspecified constipation type; Healthcare maintenance; History of removal of joint prosthesis of right hip due to infection; Infection of prosthetic joint, initial encounter; Hyperlipidemia, unspecified hyperlipidemia type; Arthritis; DVT prophylaxis; Postoperative anemia; Seasonal allergies; Tuberculosis screening; Itching; Morbid obesity with BMI of 40.0-44.9, adult (HCC); Nausea Discharge Disposition: Assisted Facility 02/04/2021 Plan of Care Documentation [facility] [address] [place] [address] 02/01/2021 Travel 01/28/2021 12:56 PM EDT - 02/01/2021 4:59 PM EDT Hospital Encounter EDG 7D [facility] [place] [address] Jemal George MD Presence of right artificial hip joint; Presence of right artificial hip joint Discharge Disposition: Assisted Facility 01/28/2021 Travel 01/28/2021 3:15 PM EDT - 01/28/2021 6:15 PM EDT Surgery EDG PERIOP [facility] [address] [place], [place] [address] Jemal George MD TOTAL HIP EXPLANTATION -ANTERIOR 01/28/2021 3:01 PM EDT Anesthesia Event [facility]G PERIOP [facility] [address] [place], [place] [address] Luis Cameron MD Powell, Jeanne, APRN 01/24/2021 Travel 01/24/2021 12:49 PM EDT - 01/24/2021 11:59 PM EDT Hospital Encounter EDG PRE-ADMIT TESTING [facility] [address] [place], [place] [address] Discharge Disposition: Home or Self Care 01/24/2021 10:39 AM EDT - 01/24/2021 12:48 PM EDT Hospital Encounter EDG LAB [address] DR Luis [place], [facility] Covid19, Edg Lab [place] Chavez Pre-op testing; Encounter for laboratory testing for COVID-19 virus Discharge Disposition: Home or Self Care 01/21/2021 Telephone [facility] H&V CV [place] [address] [place] [address] Weston Coles MD Cardiology Clearance 01/21/2021 Telephone [facility] [address] [place] [phone] Jemal George MD Other (CLEARANCE FOR SURGERY) 01/19/2021 Travel 01/19/2021 11:57 AM EDT - 01/19/2021 11:59 PM EDT Hospital Encounter [place] [address] Covid19, Edg Lab [place] Chavez Pre-op testing; Encounter for laboratory testing for COVID-19 virus Discharge Disposition: Home or Self Care 01/19/2021 Orders Only [facility] [place] [address] [place] [address] Jemal George MD Presence of right artificial hip joint (Primary Dx) 01/19/2021 Orders Only [facility] [place] [address] [place] [address] Anahy Hastings PA-C History of right hip replacement (Primary Dx) 01/18/2021 Telephone [facility] [address] [address] Dionne Goldberg ATC Patient Question 01/12/2021 [place] [address] Domo Ellis PA-C Patient Question 01/11/2021 8:15 AM EDT Office Visit [facility] [address] [facility] [address] [place] [address] Domo Ellis PA-C History of right hip replacement (Primary Dx) 01/06/2021 Travel 01/06/2021 9:00 AM EDT Office Visit [facility] H&V CV [place] [address] [place] [address] Weston Coles MD Atypical chest pain (Primary Dx); Essential hypertension; Mixed hyperlipidemia 01/04/2021 [place] [address] Jemal George MD Patient Question 12/20/2020 3:40 PM EDT Clinical Support [facility] [address] [place] [address] Gloria Santo History of right hip replacement 12/20/2020 2:30 PM EDT Office Visit [place] [phone] Eric Christianson MD Right hip joint effusion (Primary Dx) 12/20/2020 2:00 PM EDT Office Visit [address] [phone] Domo Ellis PA-C History of right hip replacement (Primary Dx) 10/04/2020 10:00 AM EDT Clinical Support [facility] [address] [place] [address] Jacquelyn Duckworth Pain in right hip; Presence of right artificial hip joint 09/28/2020 9:13 AM EDT Hospital Encounter [facility] 1 [place] [address] Domo Ellis PA-C Pain in right hip 09/21/2020 10:10 AM EDT Clinical Support [facility] [address] [place] [address] Gloria Santo Pain in right hip; Presence of right artificial hip joint 09/21/2020 10:03 AM EDT Hospital Encounter [facility] Referral Lab 1 [place] [address] Domo Ellis PA-C Pain in right hip; Presence of right artificial hip joint 09/21/2020 Travel 09/16/2020 Travel 09/16/2020 7:57 AM EDT - 09/16/2020 11:59 PM EDT Hospital Encounter EDG [facility] [place] [address] Domo Ellis PA-C Discharge Disposition: Home or Self Care 09/16/2020 7:56 AM EDT Hospital Encounter EDG [facility] [place] [address] Domo Ellis PA-C Primary osteoarthritis of right hip; Pain due to total hip replacement, initial encounter Discharge Disposition: Home or Self Care 09/14/2020 Orders Only [facility] [address] [facility] 100 [place] [address] Jocelyn Gallardo, DPT 09/14/2020 9:02 AM EDT Hospital Encounter [facility] Referral Lab 1 [place] [address] Jemal Rey MD Pain in right hip 09/14/2020 8:48 AM EDT - 09/14/2020 11:59 PM EDT Hospital Encounter SE Referral Lab 1 [place] [address] Jemal Rey MD Pain in right hip Discharge Disposition: Home or Self Care 09/13/2020 Travel 09/07/2020 9:39 AM EST Hospital Encounter [facility] Referral Lab [address] [place] [address] Domo Ellis PA-C Pain in right hip; Presence of right artificial hip joint 09/07/2020 10:00 AM EST Clinical Support [facility] [address] [place] [address] Gloria Santo Right hip pain (Primary Dx); Presence of right artificial hip joint 09/07/2020 Travel 08/30/2020 Travel 08/30/2020 7:54 AM EST - 08/30/2020 11:59 PM EST Hospital Encounter [facility] [place] [facility] [address] [place] [address] Domo Ellis PA-C Right hip pain Discharge Disposition: Home or Self Care 08/25/2020 Travel 08/20/2020 Travel 08/11/2020 Travel 02/12/2020 Travel 02/12/2020 9:00 AM EDT Office Visit [facility] H&V CV [place] [address] [place] [phone] Weston Coles MD Atypical chest pain (Primary Dx); Family history of early CAD; Essential hypertension; Rapid palpitations 06/11/2019 7:45 AM EST - 06/11/2019 8:00 AM EST Surgery [facility] [place] [address] [place] [address] Rene Cummings MD CATARACT EXTRACTION WITH PHACOEMULSIFICATION AND INTRAOCULAR LENS 06/11/2019 7:29 AM EST Anesthesia Event [facility] [place] [address] [place] [address] Po Daley DO Grigorieva, Anastassia, MD 06/11/2019 6:37 AM EST - 06/11/2019 8:22 AM EST Hospital Encounter [facility] [place] [address] [place] [address] Rene Cummings MD Discharge Disposition: Home or Self Care 05/28/2019 7:45 AM EST - 05/28/2019 8:00 AM EST Surgery [facility] [place] [address] [place] [place] [facility] [phone] Rene Cummings MD CATARACT EXTRACTION WITH PHACOEMULSIFICATION AND INTRAOCULAR LENS 05/28/2019 7:38 AM EST Anesthesia Event [facility] [place] [address] [place] [facility] [phone] Bert Umanzor MD Grigorieva, Anastassia, MD 05/28/2019 6:34 AM EST - 05/28/2019 8:45 AM EST Hospital Encounter [facility] [place] [address] [place] [facility] [phone] Rene Cummings MD Discharge Disposition: Home or Self Care 02/13/2019 7:29 AM EDT - 02/14/2019 12:40 PM EDT Hospital Encounter EDG 7D ORTHO [facility] [address] [place] [address] Jemal George MD Discharge Disposition: Home or Self Care 02/13/2019 Travel 02/13/2019 10:00 AM EDT - 02/13/2019 11:15 AM EDT Surgery EDG PERIOP [facility] [place] [place] [address] Jemal George MD TOTAL HIP ARTHROPLASTY/REPLACEMENT -ANTERIOR OR REVISION ANTERIOR (SG/WNEDI) 02/13/2019 9:37 AM EDT Anesthesia Event EDG [facility] EDOP [facility] [address] [place] [address] Johnnie Mejía MD Merkle Serey, Jennifer L, NP 01/29/2019 Travel 01/29/2019 9:00 AM EDT - 01/29/2019 11:59 PM EDT Hospital Encounter [place] [address] Provider, Edg Total Joint Class Discharge Disposition: Home or Self Care 01/29/2019 8:35 AM EDT - 01/29/2019 8:59 AM EDT Hospital Encounter EDG PRE-ADMIT TESTING [facility] [address] [place] [address] Anticoagulation adequate (Primary Dx) Discharge Disposition: Home or Self Care 01/21/2019 9:45 AM EDT Office Visit [facility] [address] [place] [address] Weston Coles MD Pre-operative cardiovascular examination (Primary Dx); Atypical chest pain; Essential hypertension 08/08/[address] [phone] Javy Holguin Other (PA for stelara ) 08/06/[address] [phone] Javy Holguin Other (Requesting more info on pt for stelara ) 08/01/2018 11:20 AM EST Office Visit [address] [address] Javy Holguin Plaque psoriasis (Primary Dx); High risk medication use 02/04/2018 10:45 AM EDT Office Visit [facility]&[address] [address] Weston Coles MD Atypical chest pain (Primary Dx); Essential hypertension; Family history of early CAD; Class 2 severe obesity due to excess calories with serious comorbidity and body mass index (BMI) of 35.0 to 35.9 in adult (HCC) 11/11/2017 7:15 AM EDT - 11/12/2017 6:09 PM EDT Hospital Encounter [place] [address] Janette Oshea, Jemal Weir MD Chest pain, unspecified type (Primary Dx) Discharge Disposition: Home or Self Care 11/08/2017 8:05 AM EDT - 11/08/2017 11:59 PM EDT Hospital Encounter [facility]AT[facility] [address] [place] [address] Shortness of breath Discharge Disposition: Home or Self Care 11/07/2017 8:45 AM EDT Office Visit [facility]&[address] [address] Vesna De La O APRN Shortness of breath (Primary Dx); Class 3 severe obesity due to excess calories without serious comorbidity with body mass index (BMI) of 40.0 to 44.9 in adult (HCC); Family history of heart disease; Tobacco abuse; Dyslipidemia 11/06/2017 Telephone [facility] [address] [place] [address] Weston Coles MD Shortness of Breath 04/20/2017 3:00 PM EDT Office Visit [facility] [address] [place] [address] Weston Coles MD Rapid palpitations (Primary Dx); Family history of early CAD; Essential hypertension 04/07/2016 9:30 AM EDT Office Visit [facility] [address] [place] [address] Weston Coles MD Essential hypertension (Primary Dx); Mixed hyperlipidemia; Rapid palpitations; Family history of early CAD 10/14/2015 11:15 AM EDT Office Visit [facility] [address] [place] [address] Weston Coles MD Essential hypertension (Primary Dx); Family history of early CAD; Rapid palpitations 06/07/2015 7:30 AM EST - 06/07/2015 11:59 PM EST Hospital Encounter [facility] Physical Therapy [place] [address] [place] [address] Kunal Ruiz, PT Right hip pain (Primary Dx) Discharge Disposition: Home or Self Care 05/31/2015 7:30 AM EST - 05/31/2015 11:59 PM EST Hospital Encounter [facility] Physical Therapy [place] [address] [place] [address] [place] [place] [address] Kunal Ruiz, PT Right hip pain (Primary Dx) Discharge Disposition: Home or Self Care 05/24/2015 7:30 AM EST - 05/24/2015 11:59 PM EST Hospital Encounter [facility] Physical Therapy [place], [place] [address] Ruiz, Bill, PT Right hip pain (Primary Dx) Discharge Disposition: Home or Self Care 05/17/2015 8:04 AM EST - 05/17/2015 11:59 PM EST Hospital Encounter [facility] Physical Therapy [place], [place] [address] Ruiz, Bill, PT Right hip pain (Primary Dx) Discharge Disposition: Home or Self Care 06/04/2014 8:25 AM EST - 06/04/2014 11:59 PM EST Hospital Encounter [facility] ECHO [address] [place] [address] Weston Coles MD HTN (hypertension); Cardiovascular risk factor; Family history of early CAD Discharge Disposition: Home or Self Care 06/04/2014 8:24 AM EST Hospital Encounter [facility] E[facility] [address] [place] [address] Weston Coles MD HTN (hypertension); Cardiovascular risk factor; Family history of early CAD Discharge Disposition: Home or Self Care 05/26/2014 Telephone [facility] [address] [place] [phone] Weston Coles MD Precertification 05/15/2014 8:00 AM EST Office Visit SEP H&V [facility] [address] [place] [address] Weston Coles MD HTN (hypertension) (Primary Dx); Cardiovascular risk factor; Family history of early CAD 05/08/2014 Abstract SEP H&V [facility] [address] [place] [address] Weston Coles MD HTN (hypertension) (Primary Dx); Hyperlipidemia; Osteoarthritis; Obesity 05/01/2014 Telephone [facility] [address] [place] [address] Wendie Paredes DO Appointment Needed 10/20/2011 9:10 AM EDT - 10/20/2011 11:59 PM EDT Hospital Encounter EDG D-WING XRAY [facility] Dr. [place] [address] Pain Discharge Disposition: Home or Self Care 07/27/2010 8:05 AM EST - 07/27/2010 11:59 PM EST Hospital Encounter EDG LABORATORY [facility] Guillermo [place]O [address] Psoriasis Discharge Disposition: Home or Self Care 07/26/2010 5:00 PM EST - 07/26/2010 11:59 PM EST Hospital Encounter [place] [address] Psoriasis Discharge Disposition: Home or Self Care 04/13/2003 6:30 PM EDT - 04/13/2003 10:25 PM EDT Emergency [facility] ER EDG Gopal Burleson MD 04/13/1999 5:39 AM EDT - 04/13/1999 11:59 PM EDT Hospital Encounter HST RADIOLOGY EDG Dewayne Stark 04/04/1999 5:32 AM EDT - 04/04/1999 11:59 PM EDT Hospital Encounter HST RADIOLOGY EDG Dewayne Stark 02/12/1999 8:20 AM EDT - 02/12/1999 11:59 PM EDT Hospital Encounter HST RADIOLOGY EDG Dewayne Stark 01/24/1999 1:44 PM EDT - 01/24/1999 11:59 PM EDT Hospital Encounter HST LAB EDG Gopal Ruiz 01/10/1999 5:48 AM EDT - 01/10/1999 11:59 PM EDT Hospital Encounter HST EPIC CON UNK EDG Dewayne Stark 01/05/1999 3:39 PM EDT - 01/05/1999 11:59 PM EDT Hospital Encounter HST EPIC CON UNK EDG Gopal Ruiz 01/09/1998 12:20 PM EDT - 01/09/1998 11:59 PM EDT Hospital Encounter HST RADIOLOGY EDG Leandro, Historical Provider 05/28/1996 7:15 AM EST - 05/28/1996 6:45 PM EST Hospital Encounter HST Sanchez Ruth MD 05/01/1996 8:30 AM EST - 05/01/1996 11:59 PM EST Hospital Encounter HST EPIC CON UNK EDG Frida Flores MD 02/10/1995 7:56 AM EDT - 02/10/1995 11:59 PM EDT Emergency HST EPIC CON UNK EDG Horacio Naik 01/25/1993 3:27 PM EDT - 01/25/1993 5:35 PM EDT Hospital Encounter HST Kennedy You 01/02/1993 5:52 PM EDT - 01/02/1993 11:59 PM EDT Emergency HST EPIC CON UNK EDG Chavez Peng, Allergies No known active allergies Medications Coenzyme Q10 100 mg Oral Capsule Take 100 mg by mouth daily. Active ascorbic acid, vitamin C, (VITAMIN C) 500 mg Oral Tablet Take 500 mg by mouth daily. Active clobetasol (TEMOVATE) 0.05 % Top Cream Apply topically every other day. Active simvastatin (ZOCOR) 40 mg Oral Tablet Take 20 mg by mouth every evening. 1 9 Active acetaminophen (TYLENOL) 500 mg Oral Tablet Take 2 Tablets by mouth every 8 hours as needed for Pain. 60 Tablet 1 Active Additional Information Patient taking differently:1,000 mg Oral EVERY 8 HOURS PRN, Pain,Taking Tylenol Arthritis, Reason: Advised by Physician, Reported on 06/27/2024 Ustekinumab 90 mg/mL SubQ Syringe Subcutaneous (Inject under the skin). 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 due to infection 02/01/2021 Presence of right artificial hip joint Overview (01/19/2021): Added automatically from request for surgery [id number] History of right hip replacement 12/20/2020 Pre-operative cardiovascular examination 019 Rapid palpitations 10/14/2015 Right hip pain 05/17/2015 Cardiovascular risk factor 05/15/2014 Family history of early CAD 05/15/2014 HTN (hypertension) 05/08/2014 Hyperlipidemia 05/08/2014 Osteoarthritis 05/08/2014 Obesity 05/08/2014 Resolved Problems Problem Noted Date Diagnosed Date Resolved Date Infection of right prosthetic hip joint 02/24/2021 04/05/2023 Prosthetic joint infection 01/28/2021 1 Immunizations Immunization Administration Dates Next Due Influenza Vaccine Quadrivalent 06/08/2020,2015 PPD Test 02/15/2021,02/01/2021 Tdap 01/16/2019 Family History Medical History Relation Name Comments Diabetes Brother 1 Other Brother 3 hep c Heart Disease Father mi, cabg Diabetes Mother Osteoarthritis Mother Arthritis Sister 1 Diabetes Sister 4 Anesth Problems Neg Hx Relation Name Status Comments Brother 1 Alive Brother 2 Alive Brother 3 Father Mother Sister 1 Alive Sister 2 Alive Sister 3 Alive Sister 4 Alive Social History Smoking Status as of 02/16/2025 Tobacco Use Types Packs/Day Years Used Date Smoking Tobacco: Never Assessed Overall Financial Resource Strain (CARDIA) Answe r [...] on file Sexual Orientation Not on file Last Filed Vital Signs Vital Sign Reading Time Taken Comments Blood Pressure 114/70 06/27/2024 7:49 AM EST Pulse 81 06/27/2024 7:49 AM EST Temperature 36.6 C (97.9 F) 04/06/2023 12:28 PM EDT Respiratory Rate 16 04/06/2023 1:50 PM EDT Oxygen Saturation 97% 06/27/2024 7:49 AM EST Inhaled Oxygen Concentration - - Weight 147.4 kg (325 lb) 06/27/2024 7:49 AM EST Height 185.4 cm (6' 1 ) 04/04/2023 10:56 PM EDT Body Mass Index 42.88 04/04/2023 10:56 PM EDT Plan of Treatment Upcoming Encounters Date Type Department Care Team (Late st Contact Info) Description 03/13/2025 9:00 AM EDT Office Visit [facility]P [facility] [address] [place] [id number] Negro Faria MD [address] [place] [id number] Medical Devices Implanted Type Area Practice Performance Manager Device Identifier Shelf Expiration Date Model / Serial / Lot Lens Intraocular Preloaded 20.5 Diopter - [id number] Implanted:Qty: 1 on 05/28/2019 by Rene Cummings MD at [facility] Right: Eye NAV LAB:SURG 01/29/2021 AU00T0.2 [id number] / Lens Intraocular Preloaded 20.5 Diopter - [id number] Implanted:Qty: 1 on 06/11/2019 by Rene Cummings MD at [facility] Left: Eye NAV LAB:SURG 01/29/2022 AU00T0.2 05 / [id number] / Cup Actb Trident Sz-E 56mm Mulhl Tritan Hap Revisn Hemisp - [id number] Implanted:Qty: 1 on 04/21/2021 by Jemal George MD at [facility] Right: Hip SG:ORTHOPE DICS [id number] 11/26/2022 509-02-5 6E / / [id number] Liner Actb Sz-E 42mm Mdm Ncem Prim Cocr F/28mm Head - [id number] Implanted:Qty: 1 on 04/21/2021 by Jemla George MD at [facility] Right: Acetabulum SG:ORTHOPE DICS [id number] 11/28/2025 626-00-4 2E / / [id number] Screw 6.5x25mm Gap2 Restor Torx Canc Actb - [id number] Implanted:Qty: 1 on 04/21/2021 by Jemal George MD at [facility] Right: Acetabulum SG:ORTHOPE DICS 07/14/20240-002 5 / / [id number] Stem 17mm Restor Rev Mod Ti Hap Por Conic Dist Hip Prim - [id number] Implanted:Qty: 1 on 04/21/2021 by Jemal George MD at [facility] Right: Hip SG:ORTHOPE DICS [id number] 12/07/2025 6276-7-0 17 / / [id number] Stem 25mm Std Restor Rev Mod Weatherly Ti Hap Por Conic 30mm - [id number] Implanted:Qty: 1 on 04/21/2021 by Jemal George MD at [facility] Right: Hip SG:ORTHOPE DICS [id number] 01/20/2026 6276-1-0 25 / / [id number] Head Fem V-40 28mm +4mm Nk Biolox Delta Cerm Tapr Prim Mod - [id number] Implanted:Qty: 1 on 04/21/2021 by Jemal George MD at [facility] Right: Hip SG:ORTHOPE DICS [id number] 02/12/2026 6570-0-2 28 / / [id number] Liner Actb [id number] Adm/[id number] Restor 6.9mm Self-Lck - [id number] Implanted:Qty: 1 on 04/21/2021 by Jemal George MD at [facility] Right: Hip SG:ORTHOPE DICS [id number] 09/27/2025 1236-2-8 48 / / [id number] Explanted Type Area Practice Performance Manager Device Identifier Shelf Expiration Date Model / Serial / Lot Trident Ii Tritanium Clusterhole 54e - [id number] Implanted:Qty: 1 on 02/13/2019 by Jemal George MD at [facility] Explanted:Qty: 1 on 01/28/2021 by Jemal George MD at [facility] Right: Hip SG:ORTHOPED [facility] 08/06/2023 702-04-54 E / / [id number] Screw Trident Ii Hex Low Profile 6.5mm X 25mm - [id number] Implanted:Qty: 1 on 02/13/2019 by Jemal George MD at [facility] Explanted:Qty: 1 on 01/28/2021 by Jemal George MD at [facility] Right: Hip SG:ORTHOPED [facility] 12/17/2023 5336-8920 / / [id number] Insert Trident 3 X 0 Degree 36mm - [id number] Implanted:Qty: 1 on 02/13/2019 by Jemal George MD at [facility] Explanted:Qty: 1 on 01/28/2021 by Jemal George MD at [facility] Right: Hip SG:ORTHOPED [facility] 12/03/2023 623-00-36 E / / [id number] 6 Accolade Ii 127 Deg - [id number] Implanted:Qty: 1 on 02/13/2019 by Jemal George MD at [facility] Explanted:Qty: 1 on 01/28/2021 by Jemal George MD at [facility] Right: Hip SG:ORTHOPED [facility] 11/25/2023 0092-5965 / / [id number] Head Fem +0mm Ofst Tpr 36mm Hip Blx D V40 Strl - [id number] Implanted:Qty: 1 on 02/13/2019 by Jemal George MD at [facility] Explanted:Qty: 1 on 01/28/2021 by Jemal George MD at [facility] Right: Hip SG:ORTHOPED [facility] 01/06/2024 6570-0-13 6 / / [id number] Cable 2mm Dall-Mil Troch Vital Bead Med Slv Ortho Strl - [id number] Implanted:Qty: 1 on 01/28/2021 by Jemal George MD at [facility] Explanted:Qty: 1 on 04/21/2021 by Jemal George MD at [facility] Right: Hip SG:ORTHOPED ICS [id number] 12/26/2025 6704-0-52 0 / / [id number] Cable 2mm Dall-Mil Troch Vital Bead Med Slv Ortho Strl - [id number] Implanted:Qty: 1 on 01/28/2021 by Jemal George MD at [facility] Explanted:Qty: 1 on 04/21/2021 by Jemal George MD at [facility] Right: Hip SG:ORTHOPED ICS [id number] 12/26/2025 6704-0-52 0 / / [id number] Cable 2mm Dall-Mil Troch Vital Bead Med Slv Ortho Strl - [id number] Implanted:Qty: 1 on 01/28/2021 by Jemal George MD at [facility] Explanted:Qty: 1 on 04/21/2021 by Jemal George MD at [facility] Right: Hip SG:ORTHOPED ICS [id number] 12/26/2025 6704-0-52 0 / / [id number] Interspace Hip Short 54mm - [id number] Implanted:Qty: 1 on 01/28/2021 by Jemal George MD at [facility] Explanted:Qty: 1 on 04/21/2021 by Jemal George MD at [facility] Right: Hip EXACTECH [id number] 03/31/2025 [id number] / / [id number] Procedures Procedure Name Priority Date/Time Associated Diagnosis Comments EC ECHOCARDIOGRAM 2D M MODE COMPLETE W CONTRAST Routine 07/24/2024 9:24 AM EST MOHIT (obstructive sleep apnea) QUANTIFERON TB GOLD Callback 06/05/2024 11:52 AM EST Actinic keratosis Exposure to sunlight, initial encounter Tinea cruris Psoriasis vulgaris Encounter for long-term (current) use of medications Melanocytic nevus of trunk Other melanin hyperpigmentatio n Other seborrheic keratosis Other benign neoplasm of skin of left lower limb, including hip Other specified counseling QUANTIFERON TB GOLD Callback 06/05/2023 11:52 AM EST Melanocytic nevus of trunk Other melanin hyperpigmentatio n Other seborrheic keratosis Other specified counseling Psoriasis vulgaris Other [facility] (current[facility] drug therapy CARDIAC PROCEDURE Routine 04/06/2023 10:06 AM EDT Chest pain, unspecified type LEFT VENTRICULOGRAM Routine 04/06/2023 10:06 AM EDT Chest pain, unspecified type CARDIAC PROCEDURE Routine 04/06/2023 10:06 AM EDT Chest pain, unspecified type CARDIAC PROCEDURE Routine 04/06/2023 10:06 AM EDT Chest pain, unspecified type MIGRATORY FARM HAND HEMODYNAMIC WAVEFORMS Routine 04/06/2023 9:31 AM EDT ECG AND WAVEFORMS - TELEMETRY Routine 04/06/2023 7:12 AM EDT HEMOGLOBIN A1C Early AM 04/06/2023 5:42 AM EDT PT / INR Routine 04/06/2023 5:42 AM EDT BASIC METABOLIC PANEL Routine 04/06/2023 5:42 AM EDT CBC WITH DIFF Routine 04/06/2023 5:42 AM EDT ECG AND WAVEFORMS - TELEMETRY Routine 04/05/2023 7:00 PM EDT ADMIT Routine 04/05/2023 3:18 PM EDT SCANNED EKG 04/05/2023 11:18 AM EDT HEPATIC FUNCTION PANEL STAT 8:56 AM EDT LIPID SCREEN Routine 04/05/2023 8:56 AM EDT ECG AND WAVEFORMS - TELEMETRY Routine 04/05/2023 7:00 AM EDT ECG AND WAVEFORMS - TELEMETRY Routine 04/04/2023 10:57 PM EDT IP CONSULT TO CARDIOLOGY Routine 04/04/2023 10:03 PM EDT Procedure Note - Pavan Byrd MD - 04/05/2023 8:31 AM EDTThis note is in progress. Heart and Vascular Cardiology Consultation ADMISSION: 04/05/2023 PATIENT: Carlos Herron :1955, , CSN: [id number] PCP: Buster Su MD Date:04/05/2023 at 8:32 AM Primary Table Operator: Dr coles I would like to thank Solomon Rachel MD for requesting me to see samanStanradha Herron in consultation CP The patient was seen in collaboration with the [facility] Patient seen and examined independently I have taken a history and performed a physical examination of thispatient. Labs, vital signs and other pertinent information reviewed. Personally reviewed past medical history, social and family history Patient is a 67-year-old male with past medical history significant forhyperlipidemia hypertension psoriasis. Patient comes in with chest pain.Patient had short episodes of chest pain over the last week off and on.But yesterday had more profound longer episode. 5 out of 10 intensity.Then had a recurrent episode which lasted about 20 minutes. Nonradiating.No nausea vomiting diaphoresis fevers chills cough sputum production noabdominal pain thyroid problems bleeding problems. Does have arthritisand psoriasis. Denies any new focal neurologic complaints PND orthopneaor lower extremity swelling. Cardiac risk factors: Patient's not diabetic is hypertensive Family history: Father had his first CA in his early 60s Social history: Patient smoked but quit 2017 but smokes at least 1 cigar aday. He does drink he is Cardiac surgeries: None Physical Exam: Vital Blood Pressure: 120/73 Temp: 97.8 F (36.6 C) Signs Pulse: 64 Resp: 16 SpO2: 97 % General: The patient appears in no apparent distress. HEENT: patient is normocephalic and atraumatic. The eyes are anictericeyelids and conjunctiva were normal. Neck: Supple no JVD or bruits. Skin: Warm and dry Heart:: Regular rate and rhythm no S3 or S4 heard. No murmurs rubs. PMIdiffuse Lungs: Few rhonchi Back: no significant kyphosis Abdomen: Positive bowel sounds soft nontender. Extremities: no cyanosis clubbing or edema Neuro: Patient alert and oriented Mood: Fine Motor tone: Moving all extremities Pulses: Radial 2+ posterior tibialis 1+ and symmetrical Labs medications and telemetry reviewed 1. Unstable angina patient pain getting progressively worse. Troponinwas negative. Patient at increased risk. Family history hypertensiontobacco use. Plan angiogram to evaluate. 2. Tobacco use encouraged to stop 3. Hypertension controlled 4. Risk factor modification. Encouraged to lose weight CBC Chem-7 troponins old chart reviewed by me. Pavan Byrd MD Nurse practitioner note Chief Complaint: Chief Complaint Patient presents with Chest Pain Started a couple days ago - really got worse this afternoon - no cardiachx Pt is a 67 y/o male with no established h/o ASHD, CHF or arrhthymias. Pthas a h/o HLD, arthritis, former smoker and positive family history ofASHD. Pt presents to the Er with C/O squeezing CP lasting a few minutesintermittent x 2 days. Onset while at rest. Non-radiating,non-exertional and non-pleuritic CP. Nothing exacerbated or alleviatedCP. Review of Systems See Dr Pavan Byrd's note for ROS Objective: BP 105/64 (BP Location: Left arm, Patient Position: Semi Fowlers) Pulse60 Temp 97.4 F (36.3 C) (Oral) Resp 16 Ht 6' 1 (1.854 m) Wt(!) 310 lb (140.6 kg) SpO2 95% BMI 40.90 kg/m Body mass index is 40.9 kg/m . Wt Readings from Last 3 Encounters: 04/04/23 (!) 310 lb (140.6 kg) 01/19/23 (!) 313 lb (142 kg) 12/04/22 (!) 333 lb (151 kg) See Dr Pavan Byrd's note for exam Assessment: Code Status Full Code Active Hospital Problems Diagnosis Tobacco use Morbid obesity with BMI of 40.0-44.9, adult (HCC) Psoriatic arthritis (HCC) Atypical chest pain Plan: Chest Pain -Stress echo on 04/04/14: EF 55% with no WMA. Mild to mod RV dilatation.Mod RA and LA dilatation. Mild MV thickening. Trace MR. Mild TR. RVSP30. Aortic root mildly dilated at 3.8 cm. 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 Information obtained from the chart. Further input per [facility] Please note that this chart was generated using [employer] dictation software.Although every effort was made to ensure the accuracy of this automatedtranscription, some errors in validation engineer may have occurred. ADMIT Routine 04/04/2023 10:00 PM EDT TROPONIN-T HIGH SENSITIVITY 2HR Timed 04/04/2023 9:25 PM EDT XR CHEST AP PORTABLE ARELY 04/04/2023 7:54 PM EDT TROPONIN-T HIGH SENSITIVITY BASELINE W/ REFLEX STAT 04/04/2023 7:34 PM EDT BASIC METABOLIC PANEL STAT 04/04/2023 7:34 PM EDT CBC STAT 04/04/2023 7:34 PM EDT ECG AND WAVEFORMS - TELEMETRY Routine 04/04/2023 7:20 PM EDT EK EKG 12 LEAD STAT 04/04/2023 7:[address] ABDOMEN PELVIS W CONTRAST Routine 01/19/2023 11:10 AM EDT Gross hematuria CREATININE ISTAT Routine 01/19/2023 10:58 AM EDT XR HIP RIGHT AP LATERAL W AP PELVIS Routine 12/04/2022 1:03 PM EDT Status post total replacement of right hip XR HIP RIGHT AP LATERAL W AP PELVIS Routine 07/31/2022 11:02 AM EST Status post revision of total hip QUANTIFERON TB GOLD ARELY 05/03/2022 12:09 PM EDT COMPREHENSIVE METABOLIC PANEL STAT 02/08/2022 1:07 PM EDT CBC WITH DIFF STAT 02/08/2022 1:07 PM EDT XR HIP RIGHT AP LATERAL W AP PELVIS Routine 12/19/2021 11:28 AM EDT Status post total replacement of right hip XR HIP RIGHT AP LATERAL W AP PELVIS Routine 06/20/2021 2:51 PM EST Right hip pain QUANTIFERON TB GOLD ARELY 06/02/2021 12:47 PM EST SUTURE REMOVAL Routine 05/12/2021 11:00 AM EST Status post total replacement of right hip XR HIP RIGHT AP LATERAL W AP PELVIS Routine 05/06/2021 9:51 AM EDT Status post total replacement of right hip SCANNED EKG 04/25/2021 10:23 AM EDT HEMOGLOBIN AND HEMATOCRIT Timed 04/23/2021 5:32 AM EDT HOME HEALTH ORDERS (FACE TO FACE ENCOUNTER) Routine 04/22/2021 2:04 PM EDT HEMOGLOBIN AND HEMATOCRIT Timed 04/22/2021 6:18 AM EDT XR PELVIS STAT 04/21/2021 7:58 PM EDT IP CONSULT TO SOCIAL WORK Routine 04/21/2021 5:31 PM EDT IP CONSULT TO CARE COORDINATION Routine 04/21/2021 5:31 PM EDT ADMIT Routine 04/21/2021 4:50 PM EDT XR HIP INTRAOPERATIVE RIGHT 2 VIEW STAT 04/21/2021 4:47 PM EDT FL < 1 HOUR STAT 04/21/2021 4:43 PM EDT INTRAOP AIRWAY PLACEMENT Routine 04/21/2021 3:20 PM EDT JOINT FLUID DIFFERENTIAL STAT 04/21/2021 3:19 PM EDT Presence of right artificial hip joint JOINT FLUID CELL COUNT STAT 3:19 PM EDT Presence of right artificial hip joint FUNGUS CULTURE (NO STAIN) Routine 04/21/2021 3:19 PM EDT Presence of right artificial hip joint ACID FAST BACILLI CULTURE AND SMEAR (STAIN INCLUDED) Routine 04/21/2021 3:19 PM EDT Presence of right artificial hip joint WOUND CULTURE (STAIN INCLUDED) Routine 04/21/2021 3:19 PM EDT Presence of right artificial hip joint ANAEROBIC CULTURE (NO STAIN) Routine 04/21/2021 3:19 PM EDT Presence of right artificial hip joint BODY FLUID CULTURE (STAIN INCLUDED) Routine 04/21/2021 3:19 PM EDT Presence of right artificial hip joint TOTAL HIP OR CHERYLE ARTHROPLASTY REVISION -POSTERIOR LATERAL/ POSITION 04/21/2021 2:29 PM EDT Presence of right artificial hip joint Special Needs POSTERIOR CORONAVIRUS 2019 Routine 04/16/2021 9:40 AM EDT Pre-op testing Encounter for laboratory testing for COVID-19 virus XR HIP LEFT AP LATERAL W AP PELVIS Routine 04/15/2021 12:11 PM EDT Left hip pain CT LOWER EXTREMITY RIGHT WO CONTRAST STAT 04/13/2021 1:48 PM EDT Presence of right artificial hip joint JOINT FLUID CRYSTALS Routine 04/13/2021 8:44 AM EDT Presence of right artificial hip joint JOINT FLUID DIFFERENTIAL STAT 04/13/2021 8:44 AM EDT Right hip pain Presence of right artificial hip joint PJI DETECTION (SYNOVASURE)-REF LAB STAT 04/13/2021 8:44 AM EDT Right hip pain Presence of right artificial hip joint JOINT FLUID CELL COUNT STAT 8:44 AM EDT Right hip pain Presence of right artificial hip joint BODY FLUID CULTURE (STAIN INCLUDED) STAT 04/13/2021 8:44 AM EDT Right hip pain Presence of right artificial hip joint SEDIMENTATION RATE AUTOMATED Routine 04/13/2021 8:42 AM EDT Presence of right artificial hip joint C-REACTIVE PROTEIN Routine 04/13/2021 8:42 AM EDT Presence of right artificial hip joint SC ARTHROCENTESIS ASPIR&/INJ MAJOR JT/BURSA W/US Routine 04/11/2021 1:45 PM EDT Presence of right artificial hip joint BB HISTORY CHECK Routine 04/08/2021 12:22 PM EDT Preop testing SURGERY DATE Routine 04/08/2021 12:22 PM EDT Preop testing ANTIBODY SCREEN IGG Routine 04/08/2021 12:22 PM EDT Preop testing ABORH Routine 04/08/2021 12:22 PM EDT Preop testing PREADMISSION TYPE AND SCREEN Routine 04/08/2021 12:22 PM EDT Preop testing PT / INR Routine 04/08/2021 12:22 PM EDT Anticoagulation adequate COMPREHENSIVE METABOLIC PANEL Routine 04/08/2021 12:22 PM EDT Preop testing CBC WITH DIFF Routine 04/08/2021 12:22 PM EDT Preop testing EK EKG 12 LEAD Routine 04/08/2021 11:17 AM EDT Preop testing Infection associated with internal right hip prosthesis, subsequent encounter SEDIMENTATION RATE AUTOMATED Timed 03/10/2021 6:53 AM EDT CBC Timed 03/10/2021 6:53 AM EDT C-REACTIVE PROTEIN Timed 03/10/2021 6:52 AM EDT BASIC METABOLIC PANEL Timed 03/10/2021 6:52 AM EDT HOME HEALTH ORDERS (FACE TO FACE ENCOUNTER) Routine 03/03/2021 12:12 PM EDT SEDIMENTATION RATE AUTOMATED Timed 03/03/2021 6:06 AM EDT CBC Timed 03/03/2021 6:06 AM EDT C-REACTIVE PROTEIN Timed 03/03/2021 6:06 AM EDT BASIC METABOLIC PANEL Timed 03/03/2021 6:06 AM EDT CBC Routine 02/27/2021 2:18 PM EDT IP CONSULT TO SOCIAL WORK Routine 02/24/2021 2:21 PM EDT IP CONSULT TO NUTRITION Routine 02/24/2021 2:21 PM EDT ADMIT Routine 02/24/2021 2:21 PM EDT SEDIMENTATION RATE AUTOMATED Timed 02/24/2021 4:42 AM EDT CBC Timed 02/24/2021 4:42 AM EDT BASIC METABOLIC PANEL Timed 02/24/2021 4:42 AM EDT C-REACTIVE PROTEIN Timed 02/24/2021 4:42 AM EDT XR HIP RIGHT AP LATERAL W AP PELVIS ARELY 02/20/2021 4:29 PM EDT SEDIMENTATION RATE AUTOMATED Timed 02/17/2021 6:29 AM EDT CBC Timed 02/17/2021 6:29 AM EDT BASIC METABOLIC PANEL Timed 02/17/2021 6:29 AM EDT C-REACTIVE PROTEIN Timed 02/17/2021 6:29 AM EDT SEDIMENTATION RATE AUTOMATED Timed 02/10/2021 5:32 AM EDT CBC Timed 02/10/2021 5:32 AM EDT BASIC METABOLIC PANEL Timed 02/10/2021 5:32 AM EDT C-REACTIVE PROTEIN Timed 02/10/2021 5:32 AM EDT FECAL HEME (FIT) OCCULT BLOOD ARELY 02/07/2021 11:19 AM EDT FECAL HEME (FIT) - NOT FOR DETECTING UGI BLEEDING ARELY 02/07/2021 11:19 AM EDT HEMOGLOBIN AND HEMATOCRIT Timed 02/07/2021 5:25 AM EDT HEMOGLOBIN AND HEMATOCRIT Timed 02/06/2021 5:50 AM EDT HEMOGLOBIN AND HEMATOCRIT Timed 02/04/2021 5:10 AM EDT BASIC METABOLIC PANEL Timed 02/03/2021 5:40 AM EDT CBC WITH DIFF Timed 02/03/2021 5:40 AM EDT CORONAVIRUS 2019 Routine 02/02/2021 5:54 PM EDT GLUCOSE METER POC Routine 02/02/2021 4:34 PM EDT SCANNED RHYTHM STRIPS 02/02/2021 9:58 AM EDT IP CONSULT TO WOUND CARE Routine 02/01/2021 7:11 PM EDT ADMIT Routine 02/01/2021 5:42 PM EDT IP CONSULT TO SOCIAL WORK Routine 02/01/2021 5:42 PM EDT IP CONSULT TO NUTRITION Routine 02/01/2021 5:42 PM EDT HEMOGLOBIN AND HEMATOCRIT Timed 01/31/2021 6:54 AM EDT SEDIMENTATION RATE AUTOMATED Timed 01/30/2021 7:11 AM EDT CBC WITH DIFF Timed 01/30/2021 7:11 AM EDT C-REACTIVE PROTEIN Timed 01/30/2021 6:24 AM EDT COMPREHENSIVE METABOLIC PANEL Timed 01/30/2021 6:24 AM EDT HEMOGLOBIN AND HEMATOCRIT Timed 01/29/2021 6:56 AM EDT HEMOGLOBIN AND HEMATOCRIT STAT 01/29/2021 2:33 AM EDT IP CONSULT TO INFECTIOUS DISEASES Routine 01/29/2021 12:09 AM EDT Procedure Note - Gopal Floyd MD - 01/29/2021 3:25 PM EDTThis note is in progress. Name: Carlos Negron Inpatient consult to Infectious Diseases + Culture Consult performed by: Penny Reinoso APRN Consult ordered by: Jemal George MD HPI: Mr Negron is a 65 year old male with a significant past medicalhistory of arthritis, hyperlipidemia, and psoriasis (on ) whounderwent a right total hip replacement on 02/13/19. He had a fall inDecember of 2019. On August 30 [address] that showed ahypoattenuating collection extending along the surgical incision tractfrom the hip joint to the subcutaneous tissues. He then had a [place] bone scanon 09/16/20 which showed no pathologic osseous uptake to the right hip, nosuggestion of infection. Aspiration of right hip in August 2020 with growthof gram positive rods, unable to identify by Maldi-todf. He improved postaspiration and was not placed on antibiotic therapy. In November of 2020, hadley presented back to Orthopedics with increased swelling and soreness ofthe right hip. He then underwent another right hip aspiration on 12/20/20and culture with growth of Cutibacterium avidum. He is now S/P right hipexplantation with placement of antibiotic spacer on 01/28. Intraoperativecultures with right hip swab with gram stain positive for few grampositive rods. Infectious Disease is now consulted for further managementof antibiotics. PCP:Buster Su MD Past Medical History: Diagnosis Date Arthritis hip Dyslipidemia Hyperglycemia Hyperlipidemia Kidney stones Psoriasis Psoriatic arthritis (HCC) Sebaceous cyst Urinary frequency Urinary stream slowing Past Surgical History: Procedure Laterality Date APPENDECTOMY CATARACT REMOVAL Right 05/28/2019 CATARACT REMOVAL Left 06/11/2019 CHOLECYSTECTOMY COLONOSCOPY FACIAL RECONSTRUCTION SURGERY: jaw fx/pins/wires HIP ARTHROPLASTY Right 02/13/2019 KNEE ARTHROSCOPY: left LITHOTRIPSY TONSILLECTOMY Family History Problem Relation Age of Onset Heart Disease Father mi, cabg Diabetes Brother Osteoarthritis Mother Diabetes Mother Arthritis Sister Hep C Brother Diabetes Sister Anesth Problems Neg Hx Social History Socioeconomic History Marital status: Tobacco Use Smoking status: Former Smoker Packs/day: 0.50 Years: 25.00 Pack years: 12.50 Types: Cigarettes Start date: 01/30/1972 Quit date: 11/08/2017 Years since quittin.2 Smokeless tobacco: Former User Types: Chew Quit date: 07/02/1976 Tobacco comment: quit in 2018 - occasional cigar now Substance and Sexual Activity Alcohol use: Yes Alcohol/week: 1.2 oz Types: 2 Cans of beer per week Comment: per week Drug use: No Allergies: NKA Medications: Inpatient MAR reviewed, HULLER OPERATOR medications reviewed. OnCefazolin. Review of Systems: Constitutional: No fever, chills, or weight loss Eyes: No visual disturbance HEENT: No headache, sore throat, or hoarseness Lungs: No SOB, cough, hemoptysis GI: No abdominal pain, nausea, vomiting, hematemesis, diarrhea,constipation, melena, hematochezia, or bright red blood per rectum : No dysuria, frequency, hesitancy, or hematuria Musculoskeletal: positive for right hip pain and joint swelling Neurologic: Negative for dizziness, syncope, weakness, and numbness Skin: No edema, jaundice, or skin discoloration Vitals: 01/28/21 2330 01/29/21 0030 01/29/21 0350 01/29/21 0837 BP: 113/78 137/88 142/78 113/70 BP Location: Right arm Right arm Right arm Right arm Patient Position: Semi Fowlers Semi Fowlers Semi Fowlers Semi Fowlers Pulse: 83 94 94 86 Resp: 15 16 16 18 Temp: 98.1 F (36.7 C) 98 F (36.7 C) 98.1 F (36.7 C) 98.4 F (36.9 C) TempSrc: Forehead Oral Oral Oral SpO2: 94% 93% 94% 94% General: Alert, NAD, obese, nontoxic HEENT: normocephalic, anicteric, no conj hemorrhage, no thrush Heart: RR no murmurs, rubs, or gallops Lungs: Clear to auscultation bilaterally, no rhonchi, no wheeze, nocrackles Abdomen: Soft, nontender, obese, positive bowel sounds Extremities: No clubbing or cyanosis, right hip with wound vac in placewith moderate sanguinous drainage, no surrounding erythema Skin: IV site without erythema, no osler nodes or janeway lesions orsplinter hemorrhages, no acute rashes Neuro: awake and alert, moves all 4 extremities to command, no numbness ortingling of lower extremities, able to dorsiflex and plantar flex feet Lab and radiographic data reviewed. A/P: 1) Right prosthetic hip infection: Fall in June of 2020 and had fluidcollection noted in CT in August of 2020. Growth of gram negative rodsunidentifiably in August of 2020, and then another right hip aspirationwith growth of Cutibacterium avidum. He is now S/P right hip explant withplacement of antibiotic spacer on 01/28. Intraoperative cultures with gramstain with growth of few gram positive rods. Keep on Cefazolin pendingresults of cultures. 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 Will obtain inflammatory markers tomorrow AM andtrend. Check CBC with diff and CMP. Patient will need 6 weeks ofantibiotic therapy. Discussed with patient and in room. Thank you for asking me to participate in your patient's care. Penny Reinoso, ASSEMBLER WIRE MESH GATE 01/29/2021 Dictated [id number] XR PELVIS STAT 01/28/2021 7:25 PM EDT GLUCOSE METER POC Routine 01/28/2021 7:21 PM EDT IP CONSULT TO SOCIAL WORK Routine 01/28/2021 7:02 PM EDT IP CONSULT TO CARE COORDINATION Routine 01/28/2021 7:02 PM EDT ADMIT Routine 01/28/2021 6:38 PM EDT FL < 1 HOUR ARELY 01/28/2021 6:26 PM EDT FUNGUS CULTURE (NO STAIN) Routine 01/28/2021 5:29 PM EDT Presence of right artificial hip joint WOUND CULTURE (STAIN INCLUDED) Routine 01/28/2021 5:29 PM EDT Presence of right artificial hip joint ANAEROBIC CULTURE (NO STAIN) Routine 01/28/2021 5:29 PM EDT Presence of right artificial hip joint PATHOLOGY TISSUE REQUEST Routine 01/28/2021 3:28 PM EDT Presence of right artificial hip joint ACID FAST BACILLI CULTURE AND SMEAR (STAIN INCLUDED) Routine 01/28/2021 3:27 PM EDT Presence of right artificial hip joint ACID FAST BACILLI CULTURE AND SMEAR (STAIN INCLUDED) Routine 01/28/2021 3:27 PM EDT Presence of right artificial hip joint FUNGUS CULTURE (NO STAIN) Routine 01/28/2021 3:27 PM EDT Presence of right artificial hip joint WOUND CULTURE (STAIN INCLUDED) Routine 01/28/2021 3:27 PM EDT Presence of right artificial hip joint ANAEROBIC CULTURE (NO STAIN) Routine 01/28/2021 3:27 PM EDT Presence of right artificial hip joint INTRAOP AIRWAY PLACEMENT Routine 01/28/2021 3:18 PM EDT TOTAL HIP EXPLANTATION -ANTERIOR 01/28/2021 3:01 PM EDT Presence of right artificial hip joint CORONAVIRUS 2019 Routine 01/24/2021 10:38 AM EDT Pre-op testing Encounter for laboratory testing for COVID-19 virus CORONAVIRUS 2019 Routine 01/19/2021 11:55 AM EDT Pre-op testing Encounter for laboratory testing for COVID-19 virus SEDIMENTATION RATE AUTOMATED Routine 12/20/2020 3:35 PM EDT History of right hip replacement C-REACTIVE PROTEIN Routine 12/20/2020 3:35 PM EDT History of right hip replacement CBC WITH DIFF Routine 12/20/2020 3:35 PM EDT History of right hip replacement MISCELLANEOUS LAB Routine 12/20/2020 3:13 PM EDT History of right hip replacement JOINT FLUID DIFFERENTIAL Routine 12/20/2020 3:13 PM EDT History of right hip replacement JOINT FLUID CELL COUNT Routine 3:13 PM EDT History of right hip replacement BODY FLUID CULTURE (STAIN INCLUDED) Routine 12/20/2020 3:13 PM EDT History of right hip replacement SC ARTHROCENTESIS ASPIR&/INJ MAJOR JT/BURSA W/US Routine 12/20/2020 2:30 PM EDT Right hip joint effusion SEDIMENTATION RATE AUTOMATED Routine 10/04/2020 8:47 AM EDT Pain in right hip Presence of right artificial hip joint CBC WITH DIFF Routine 10/04/2020 8:47 AM EDT Pain in right hip Presence of right artificial hip joint C-REACTIVE PROTEIN Routine 10/04/2020 8:47 AM EDT Pain in right hip Presence of right artificial hip joint SEDIMENTATION RATE AUTOMATED Routine 09/21/2020 10:12 AM EDT Pain in right hip Presence of right artificial hip joint CBC WITH DIFF Routine 09/21/2020 10:12 AM EDT Pain in right hip Presence of right artificial hip joint C-REACTIVE PROTEIN Routine 09/21/2020 10:12 AM EDT Pain in right hip Presence of right artificial hip joint NM BONE SCAN WHOLE BODY Routine 09/16/2020 11:53 AM EDT Primary osteoarthritis of right hip Pain due to total hip replacement, initial encounter BODY FLUID CULTURE (STAIN INCLUDED) Routine 09/14/2020 9:02 AM EDT Pain in right hip SEDIMENTATION RATE AUTOMATED Routine 09/07/2020 9:55 AM EST Right hip pain Presence of right artificial hip joint CBC WITH DIFF Routine 09/07/2020 9:55 AM EST Right hip pain Presence of right artificial hip joint C-REACTIVE PROTEIN Routine 09/07/2020 9:55 AM EST Right hip pain Presence of right artificial hip joint CT LOWER EXTREMITY RIGHT WO CONTRAST Routine 08/30/2020 8:19 AM EST Right hip pain INTRAOP AIRWAY PLACEMENT Routine 06/11/2019 7:42 AM EST CATARACT EXTRACTION WITH PHACOEMULSIFICATION AND INTRAOCULAR LENS 06/11/2019 7:32 AM EST Nuclear sclerotic cataract of left eye Special Needs EPISHUGARCAINE, AXIAL 24.37, TOPICAL/MAC INTRAOP AIRWAY PLACEMENT Routine 05/28/2019 8:07 AM EST CATARACT EXTRACTION WITH PHACOEMULSIFICATION AND INTRAOCULAR LENS 05/28/2019 7:39 AM EST Nuclear sclerotic cataract of right eye Special Needs EPISHUGARCAINETOPICAL/MAC Axial 24.10MM SCANNED RHYTHM STRIPS 02/15/2019 7:20 PM EDT HEMOGLOBIN AND HEMATOCRIT Timed 02/14/2019 6:49 AM EDT IP CONSULT TO SOCIAL WORK Routine 02/13/2019 1:33 PM EDT IP CONSULT TO CARE COORDINATION Routine 02/13/2019 1:33 PM EDT XR PELVIS STAT 02/13/2019 11:56 AM EDT FL < 1 HOUR ARELY 02/13/2019 11:02 AM EDT XR HIP INTRAOPERATIVE RIGHT 2 VIEW ARELY 02/13/2019 11:02 AM EDT INTRAOP AIRWAY PLACEMENT Routine 02/13/2019 10:11 AM EDT TOTAL HIP ARTHROPLASTY/REPLACEME NT-ANTERIOR OR REVISION ANTERIOR (SG/WENDI) 02/13/2019 9:37 AM EDT Osteoarthritis of right hip, unspecified osteoarthritis type Special Needs SG ANTERIOR PERIPHERAL BLOCK Routine 02/13/2019 8:44 AM EDT BB HISTORY CHECK Routine 01/29/2019 11:46 AM EDT Anticoagulation adequate SURGERY DATE Routine 01/29/2019 11:46 AM EDT Anticoagulation adequate ANTIBODY SCREEN IGG Routine 01/29/2019 11:46 AM EDT Anticoagulation adequate ABORH Routine 01/29/2019 11:46 AM EDT Anticoagulation adequate PREADMISSION TYPE AND SCREEN Routine 01/29/2019 11:46 AM EDT Anticoagulation adequate PT / INR Routine 01/29/2019 11:46 AM EDT Anticoagulation adequate COMPREHENSIVE METABOLIC PANEL Routine 01/29/2019 11:46 AM EDT Anticoagulation adequate CBC WITH DIFF Routine 01/29/2019 11:46 AM EDT Anticoagulation adequate POCT EKG Routine 01/21/2019 9:35 AM EDT Pre-operative cardiovascular examination SCANNED EKG 11/14/2017 2:58 PM EDT SCANNED RADIOLOGY REPORT 11/13/2017 9:56 AM EDT NM MYOCARDIAL PERFUSION SPECT STRESS AND REST Routine 11/12/2017 11:[address] STRESS TEST LEXISCAN Routine 11/12/2017 11:13 AM EDT ECG AND WAVEFORMS - TELEMETRY Routine 11/12/2017 5:29 AM EDT ECG AND WAVEFORMS - TELEMETRY Routine 11/11/2017 4:54 PM EDT TROPONIN-T Timed 11/11/2017 1:58 PM EDT ECG AND WAVEFORMS - TELEMETRY Routine 11/11/2017 12:33 PM EDT TROPONIN-T STAT 11/11/2017 9:55 AM EDT XR CHEST PA AND LATERAL ARELY 11/11/2017 7:44 AM EDT SALINE LOCK IV STAT 11/11/2017 7:25 AM EDT LIPASE LEVEL STAT 11/11/2017 7:25 AM EDT COMPREHENSIVE METABOLIC PANEL STAT 11/11/2017 7:25 AM EDT TROPONIN-T STAT 11/11/2017 7:25 AM EDT CBC WITH DIFF STAT 11/11/2017 7:25 AM EDT EK EKG 12 LEAD STAT 11/11/2017 6:31 AM EDT TSH REFLEX TO FT4 Routine 11/08/2017 8:08 AM EDT Shortness of breath LIPID SCREEN Routine 11/08/2017 8:08 AM EDT Shortness of breath COMPREHENSIVE METABOLIC PANEL Routine 11/08/2017 8:08 AM EDT Shortness of breath CBC Routine 11/08/2017 8:08 AM EDT Shortness of breath SCANNED RADIOLOGY REPORT 06/04/2014 12:34 PM EST EC ECHOCARDIOGRAM EXERCISE STRESS W DOPPLER AND COLOR FLOW MAPPING Routine 06/04/2014 9:52 AM EST HTN (hypertension) Cardiovascular risk factor Family history of early CAD ST STRESS TEST EXERCISE Routine 06/04/2014 9:50 AM EST HTN (hypertension) Cardiovascular risk factor Family history of early CAD POCT EKG Routine 05/15/2014 8:05 AM EST HTN (hypertension) XR HIP RIGHT AP LATERAL W AP PELVIS Routine 10/20/2011 9:20 AM EDT Pain XR LUMBAR SPINE AP AND LATERAL Routine 10/20/2011 9:20 AM EDT Pain LDL, CALCULATED Callback 07/27/2010 8:24 AM EST LIPID PANEL REFLEX Callback 07/27/2010 8:24 AM EST Psoriasis CBC Callback 07/27/2010 8:24 AM EST Psoriasis COMPREHENSIVE METABOLIC PANEL Callback 07/27/2010 8:24 AM EST Psoriasis Results * EC ECHOCARDIOGRAM 2D M MODE COMPLETE W CONTRAST (07/24/2024 9:24 AM EST) AORTIC STENOSIS no PYRAMIS MITRAL REGURGITATION no PYRAMIS Ejection Fraction 50-55% PYRAMIS LV DIASTOLIC PLAX 5.58 cm PYRAMIS Anatomical Region Laterality Modality Electrocardiogra phy 07/24/2024 8:15 AM EST Impressions 07/24/2024 12:19 PM EST Conclusions * Left ventricular chamber dimension is normal. * Left ventricular function is low normal with an estimated ejection fraction of 50-55%. * Left ventricular segmental wall motion is normal. * The left ventricular diastolic function is indeterminate. * Right ventricular systolic function is normal. * Unable to estimate pulmonary arterial systolic pressure due to lack of tricuspid regurgitation jet. Narrative Procedure Note Negro Faria MD - 07/24/2024 IMPRESSION Conclusions * Left ventricular chamber dimension is normal. * Left ventricular function is low normal with an estimated ejection fraction of 50-55%. * Left ventricular segmental wall motion is normal. * The left ventricular diastolic function is indeterminate. * Right ventricular systolic function is normal. * Unable to estimate pulmonary arterial systolic pressure due to lackof tricuspid regurgitation jet. us Negro Faria MD IMG ECHO ORDERABLES Final Res ult * QUANTIFERON TB GOLD (06/05/2024 11:52 AM EST) Only the most recent of4 resultswithin the time period is included. [facility] Quantiferon-TB Gold in Tube Negative Negative 06/06/2024 10:47 AM EST [facility] Quantiferon Mitogen minus NIL 9.988 IU/mL 06/06/2024 10:47 AM EST [facility], [facility] Quantiferon NIL 0.0120 IU/mL 10:47 AM EST [facility], [facility] QUANTIFERON TB1 MINUS NIL 0.0211 IU/mL 06/06/2024 10:47 AM EST [facility], [facility] QUANTIFERON TB2 MINUS NIL 0.0015 IU/mL 06/06/2024 10:47 AM EST [facility] [employer], [facility] Blood VENOUS BLOOD / Unknown Venipuncture / Unknown 06/05/2024 11:52 AM EST 06/05/2024 11:52 AM EST Narrative [facility] - 06/06/2024 10:47 AM EST Interferon gamma release is measured for patient specimens from each of four tubes. A qualitative result of Negative, Positive or Indeterminate is based on the interpretation of four values. The Nil value adjusts for background, heterophile antibody effects or nonspecific reactivity in the patient specimen. The Mitogen- Nil value serves as the positive control for the specimen and indicates successful lymphocyte activity. The TB1-Nil and TB2-Nil represent lymphocyte reactivity that has been stimulated by two distinct TB antigens and if either is reactive it is considered a positive result. Diagnosing or excluding tuberculosis disease, and assessing the probability of latent tuberculosis infection (LTBI), requires a combination of epidemiological, medical, and diagnostic findings that should be taken into account when interpreting QuantiFERON TB Gold results. us Batool Hopkins MD IMMUNOLOGY ORDERABLES Final Re sult Performing Organization Address [facility] Co de Phone Number [employer] [address] [facility], [place] [address] * CORONARY ANGIOGRAM (COR/LHC/LV GRAM, CARDIAC CATHETERIZATION), LEFT HEART CATH, LEFT VENTRICULOGRAM, ULTRASOUND GUIDED VASCULAR ACCESS (04/06/2023 10:06 AM EDT) Narrative [facility] - 04/06/2023 10:44 AM EDT Left main trunk: Normal LAD: Normal Circumflex: Normal Right coronary artery dominant. Normal LV: Normal Assessment plan 1. No significant coronary disease us Pavan Byrd MD CARDIAC CATH ORDERABLES Fi nal Result Performing Organization Address [facility] de Phone Number [facility] * [facility] [facility] HEMODYNAMIC WAVEFORMS (04/06/2023 9:31 AM EDT) 04/06/2023 9:31 AM EDT us Pavan Byrd MD CARDIAC CATH ORDERABLES Fi nal Result Performing Organization Address [facility] de Phone Number [facility] [address] [place] [address] * ECG AND WAVEFORMS - TELEMETRY (04/06/2023 7:12 AM EDT) Only the most recent of7 resultswithin the time period is included. ECG INTERPRET Sinus Bradycardia [facility] 04/06/2023 7:12 AM EDT Narrative [facility] - 04/06/2023 8:21 AM EDT /OHRC/HICUITY/ROUTINE SC 0.19 QRS 0.16 RR 1.12 QT 0.48 QTc 0.45 See Clinical Report link for waveform capture us Unknown Provider POINT OF CARE CARDIOLOGY Final Result Performing Organization Address [facility] Co de Phone Number [facility] [address] [place] [id number] * PT / INR (04/06/2023 5:42 AM EDT) Only the most recent of3 resultswithin the time period is included. Pathologist [facility] PT 12.0 10.0 - 13.1 second(s) 04/06/2023 6:44 AM EDT [facility] INR 1.02 0.86 - 1.12 (ratio) 04/06/2023 6:44 AM EDT [facility] Comment: Level of Therapy Indications Target INR Range Standard Dose Treatment and prophylaxis of venous 2.0 - 3.0 thrombosis, pulmonary embolism High Dose High risk patients with mechanical 2.5 - 3.5 heart valves Blood VENOUS BLOOD / Unknown Venipuncture / Unknown 04/06/2023 5:42 AM EDT 04/06/2023 6:29 AM EDT us Pavan Byrd MD HEMATOLOGY ORDERABLES Marti jones Result [facility], [facility] [address] [facility], [place] [address] * (ABNORMAL) CBC WITH DIFF (04/06/2023 5:42 AM EDT) Only the most recent of11 resultswithin the time period is included. Pathologist [facility] WBC 6.7 3.7 - 10.3 x10(3)/mcL 04/06/2023 6:43 AM EDT [facility] RBC 3.69(L) 4.60 - 6.10 x10(6)/mcL 04/06/2023 6:43 AM EDT [facility] Hgb 10.8(L) 13.7 - 17.5 g/dL 04/06/2023 6:43 AM EDT [facility] Hct 34.1(L) 40.0 - 51.0 % 04/06/2023 6:43 AM EDT [facility] MCV 92.4 80.0 - 100.0 fL 04/06/2023 6:43 AM EDT [facility] MCH 29.3 26.0 - 34.0 pg 04/06/2023 6:43 AM EDT [facility] MCHC 31.7 30.7 - 35.5 g/dL 04/06/2023 6:43 AM EDT [facility] RDW 14.0 <=14.9 % 04/06/2023 6:43 AM EDT [facility] Platelet 165 155 - 369 x10(3)/mcL 04/06/2023 6:43 AM EDT [facility] MPV 11.8 8.8 - 12.5 fL 04/06/2023 6:43 AM EDT [facility] Neut Percent 53.1 % 04/06/2023 6:43 AM EDT [facility] Comment:Neutrophils equals s egs plus bands Imm Gran% 0.3 % 04/06/2023 6:43 AM EDT [facility] Comment:Automated count of m etamyelocytes, myelocytes and promyelocytes. Lymph Percent 33.9 % 04/06/2023 6:43 AM EDT [facility] [place] Percent 8.6 % 04/06/2023 6:43 AM EDT [facility] Eos Percent 3.3 % 04/06/2023 6:43 AM EDT [facility] Baso Percent 0.8 % 04/06/2023 6:43 AM EDT [facility] Neut # 3.5 1.6 - 6.1 x10(3)/mcL 04/06/2023 6:43 AM EDT [facility] Comment:Neutrophils equals s egs plus bands IMMGRAN# 0.0 0.0 - 0.1 x10(3)/mcL 04/06/2023 6:43 AM EDT [facility] Comment:Automated count of m etamyelocytes, myelocytes and promyelocytes. An absolute IG <0.1 is reported as 0.0. Lymph # 2.3 1.2 - 3.9 x10(3)/mcL 04/06/2023 6:43 AM EDT [facility] [place] # 0.6 0.3 - 0.9 x10(3)/mcL 04/06/2023 6:43 AM EDT [facility] Eos# 0.2 0.0 - 0.5 x10(3)/mcL 04/06/2023 6:43 AM EDT [facility] Baso # 0.1 0.0 - 0.1 x10(3)/mcL 04/06/2023 6:43 AM EDT [facility] [employer], [facility] Blood VENOUS BLOOD / Unknown Venipuncture / Unknown 04/06/2023 5:42 AM EDT 04/06/2023 6:28 AM EDT us Pavan Byrd MD HEMATOLOGY ORDERABLES Marti l Result Performing Organization Address [facility] Co de Phone Number [facility] [employer] , [place] [address] * (ABNORMAL) HEMOGLOBIN A1C (04/06/2023 5:42 AM EDT) Hgb A1C 6.2(H) 4.2 - 5.6 % 04/06/2023 7:10 AM EDT [facility] [employer], [facility] Est. Avg Glucose 131 mg/dL 04/06/2023 7:[address] [facility], [facility] Blood VENOUS BLOOD / Unknown Venipuncture / Unknown 04/06/2023 5:42 AM EDT 04/06/2023 6:28 AM EDT Narrative [facility] [employer] [facility] - 04/06/2023 7:10 AM EDT REFERENCE RANGE: Normal: 4.0-5.6% Pre-diabetes: 5.7-6.4% Provisional diagnosis of diabetes: >6.4% Hgb F>10% and anything which shortens red cell survival, such as hemolytic anemia, or unstable hemoglobin variants such as HbSS, HbSC, or HbCC, will lower the HbA1c value associated with a given level of glycemic control. us Carlos Eduardo Pierce MD CHEMISTRY ORDERABLES Final Re sult Performing Organization Address [facility] Co de Phone Number [facility] [employer] , [place] [address] * (ABNORMAL) BASIC METABOLIC PANEL (04/06/2023 5:42 AM EDT) Only the most recent of8 resultswithin the time period is included. Sodium 140 136 - 145 mmol/L 04/06/2023 7:08 AM EDT [facility] Potassium 4.0 3.5 - 5.0 mmol/L 04/06/2023 7:08 AM EDT [facility] Chloride 106 98 - 107 mmol/L 04/06/2023 7:08 AM EDT [facility] Total CO2 24 22 - 29 mmol/L 04/06/2023 7:08 AM EDT [facility] Anion Gap 10 7 - 16 mmol/L 04/06/2023 7:08 AM EDT [facility] Calcium 8.5(L) 8.8 - 10.4 mg/dL 04/06/2023 7:08 AM EDT [facility] Glucose Lvl 110(H) 82 - 100 mg/dL 04/06/2023 7:08 AM EDT [facility] BUN 16 8 - 23 mg/dL 04/06/2023 7:08 AM EDT [facility] Creatinine 0.96 0.67 - 1.30 mg/dL 04/06/2023 7:08 AM EDT [facility] eGFR (CKD-EPIcr 2020) 87 >=60 mL/min/1.7 3 m2 04/06/2023 7:08 AM EDT [facility] Comment:Estimated GFR was ca lculated using the CKD-EPIcr (2020) equation refit without race. The equation is recommended by the National [employer] - Citizen Of [place] Society of Nephrology Task Force. Blood VENOUS BLOOD / Unknown Venipuncture / Unknown 04/06/2023 5:42 AM EDT 04/06/2023 6:29 AM EDT us Pavan Byrd MD CHEMISTRY ORDERABLES Final Result [facility] [address] [facility] , [address] [place] [id number] [facility] [address] [place], [place] [id number] * SCANNED EKG (04/05/2023 11:18 AM EDT) Only the most recent of3 resultswithin the time period is included. Anatomical Region Laterality Modality Other 04/05/2023 11:1 8 AM EDT us Unknown Provider IMG ECG ORDERABLES Final Result * HEPATIC FUNCTION PANEL (04/05/2023 8:56 AM EDT) Total Protein 7.1 6.4 - 8.3 gm/dL 04/05/2023 9:29 AM EDT [facility] Albumin 4.1 3.2 - 4.6 gm/dL 04/05/2023 9:29 AM EDT [facility] Bili Direct <0.2 0.0 - 0.3 mg/dL 04/05/2023 9:29 AM EDT [facility] Bili Total 0.4 0.2 - 1.4 mg/dL 04/05/2023 9:29 AM EDT [facility] AST 25 <=40 U/L 04/05/2023 9:29 AM EDT [facility] ALT 25 <=41 U/L 04/05/2023 9:29 AM EDT [facility] Alk Phos 76 40 - 129 U/L 04/05/2023 9:29 AM EDT [facility] Blood VENOUS BLOOD / Unknown Venipuncture / Unknown 04/05/2023 8:56 AM EDT 04/05/2023 9:00 AM EDT us Bambi Perez ASSEMBLER [employer]ATE CHEMISTRY ORDERABLES F inal Result [facility] [address] [facility] , [place] [address] * (ABNORMAL) LIPID SCREEN (04/05/2023 8:56 AM EDT) Only the most recent of2 resultswithin the time period is included. Cholesterol 147 <200 mg/dL 04/05/2023 9:29 AM EDT [facility] [place] Comment: < 200 Desirable 200 - 239 Borderline High >= 240 High Triglyceride 148 <150 mg/dL 04/05/2023 9:29 AM EDT [facility] Comment: < 150 Normal 150 - 199 Borderline High 200 - 499 High >= 500 Very High HDL 38(L) >=40 mg/dL 04/05/2023 9:29 AM EDT [facility] [place] Comment: > 60 Optimal 40 - 60 Acceptable < 40 Low LDL Calculated 83 <100 mg/dL 04/05/2023 9:29 AM EDT [facility] [employer] [facility] Comment: < 100 Optimal 100 - 129 Near or above optimal 130 - 159 Borderline High 160 - 189 High >= 190 Very High Non-HDL-C Calculated 109 <=129 mg/dL 04/05/2023 9:29 AM EDT [facility] [place] Comment: <130 Desirable 130-159 Above Desirable 160-189 Borderline High 190-219 High >= 220 Very High Fasting Specimen? Yes None 023 9:29 AM EDT [facility] Blood VENOUS BLOOD / Unknown Venipuncture / Unknown 04/05/2023 8:56 AM EDT 04/05/2023 9:00 AM EDT Bambi Sloan Balder[place] [employer]SEMBL[employer] GATE CHEMISTRY ORDERABLES F inal Result [facility] [address] [facility], [address] [place] [id number] [facility] 1 [place] [id number] * TROPONIN-T HIGH SENSITIVITY 2HR (04/04/2023 9:25 PM EDT) vs-vGmtgigod-Z 2HR 11 <22 ng/L 04/04/2023 9:45 PM EDT [facility] Comment:See the website brenna w for rule out CA care pathway, conditions other than AMI that can cause elevated hs cTnT, and comparison of values from the 4th and 5th generation Kimberly tests. https://askmayoexpert.[facility].org/topic/clinical-answers/gnt-[email or web address]/[facility]-203 59836 hs-cTnT 2Hr Delta from Baseline 0 <4 ng/L 04/04/2023 9:45 PM EDT [facility] Blood VENOUS BLOOD / Unknown Venipuncture / Unknown 04/04/2023 9:25 PM EDT 04/04/2023 9:27 PM EDT Narrative [facility] - 04/04/2023 9:45 PM EDT Ingestion of johnson doses of biotin (>5 mg/day) taken within 8 hours of drawing blood sample can interfere with this immunoassay test. Greta Trevino MD CHEMISTRY ORDERABLES Marti jones Result [facility] 1 [place], [place] [id number] * XR CHEST AP PORTABLE (04/04/2023 7:54 PM EDT) Anatomical Region Laterality Modality Chest Radiographic Casi ging 04/04/2023 7:54 PM EDT Impressions 04/04/2023 7:57 PM EDT No acute cardiopulmonary process. - Note: Radiology results need to be interpreted within a comprehensive clinical context. If you have questions about the radiology report, please contact the office of the ordering clinician. Narrative 04/04/2023 7:57 PM EDT XR CHEST AP PORTABLE, 04/04/2023 7:54 PM CLINICAL HISTORY: -CHEST PAIN COMPARISON: November 11, 2017 PROCEDURE COMMENTS: AP portable technique. FINDINGS: Stable cardiac and aortic configuration. No acute failure, pneumonia, or effusion. Stable chronic obstructive pulmonary disease. Procedure Note Kevon Hernandez MD - 04/04/2023 XR CHEST AP PORTABLE, 04/04/2023 7:54 PM CLINICAL HISTORY: -CHEST PAIN COMPARISON: November 11, 2017 PROCEDURE COMMENTS: AP portable technique. FINDINGS: Stable cardiac and aortic configuration. No acute failure,pneumonia, or effusion. Stable chronic obstructive pulmonary disease. IMPRESSION: No acute cardiopulmonary process. - Note: Radiology results need to be interpreted within a comprehensiveclinical context. If you have questions about the radiology report, please contactthe office of the ordering clinician. Greta Trevino MD IMG DIAGNOSTIC IMAGING OR DERABLES Final Result * TROPONIN-T HIGH SENSITIVITY BASELINE W/ REFLEX (04/04/2023 7:34 PM EDT) [facility] ia-qDkxwpcec-O 11 <22 ng/L 04/04/2023 7:58 PM EDT [facility] Comment:See the website belo w for rule out CA care pathway, conditions other than AMI that can cause elevated hs cTnT, and comparison of values from the 4th and 5th generation Kimberly tests. https://askmayoexpert.[facility].org/topic/clinical-answers/gnt-05716739/[email or web address] 08288 Blood VENOUS BLOOD / Unknown Venipuncture / Unknown 04/04/2023 7:34 PM EDT 04/04/2023 7:39 PM EDT Narrative [facility] - 04/04/2023 7:58 PM EDT Ingestion of johnson doses of biotin (>5 mg/day) taken within 8 hours of drawing blood sample can interfere with this immunoassay test. Greta Trevino MD CHEMISTRY ORDERABLES Marti jones Result [place] [id number] * (ABNORMAL) CBC (04/04/2023 7:34 PM EDT) Only the most recent of9 resultswithin the time period is included. [facility] WBC 10.5(H) 3.7 - 10.3 x10(3)/mcL 04/04/2023 7:42 PM EDT [facility] RBC 4.14(L) 4.60 - 6.10 x10(6)/mcL 04/04/2023 7:42 PM EDT [facility] Hgb 12.0(L) 13.7 - 17.5 g/dL 04/04/2023 7:42 PM EDT [facility] Hct 38.8(L) 40.0 - 51.0 % 04/04/2023 7:42 PM EDT [facility] MCV 93.7 80.0 - 100.0 fL 04/04/2023 7:42 PM EDT [facility] MCH 29.0 26.0 - 34.0 pg 04/04/2023 7:42 PM EDT [facility] MCHC 30.9 30.7 - 35.5 g/dL 04/04/2023 7:42 PM EDT [facility] RDW 14.0 <=14.9 % 04/04/2023 7:42 PM EDT [facility] Platelet 210 155 - 369 x10(3)/mcL 04/04/2023 7:42 PM EDT [facility] MPV 11.1 8.8 - 12.5 fL 04/04/2023 7:42 PM EDT [facility] Blood VENOUS BLOOD / Unknown Venipuncture / Unknown 04/04/2023 7:34 PM EDT 04/04/2023 7:39 PM EDT us Greta Trevino MD HEMATOLOGY ORDERABLES Fin al Result [facility] 1 [place] [address] * EK EKG 12 LEAD (04/04/2023 7:06 PM EDT) Only the most recent of3 resultswithin the time period is included. Anatomical Region Laterality Modality Electrocardiogra phy 04/04/2023 7:08 PM EDT Impressions 04/04/2023 8:[address] 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1955 Requested By: [facility] Order Number: [id number] Reading MD: Willis Byrd Measurements Intervals Duarte Rate: 68 P: 95 SC: 177 QRS: 25 QRSD: 106 T: 31 QT: 416 QTc: 444 Interpretive Statements SINUS RHYTHM Electronically Signed On 04-04-2023 20:18:44 EDT by Willis Byrd us Greta Trevino MD IMG ECG ORDERABLES Final Result * CT ABDOMEN PELVIS W CONTRAST (01/19/2023 11:10 AM EDT) Anatomical Region Laterality Modality Abdomen, Chest, Pelvis, Hip Comp uted Tomography 01/19/2023 11:1 0 AM EDT Impressions 01/19/2023 4:48 PM EDT No stone or mass identified to explain hematuria. No additional acute finding. - Note: Radiology results need to be interpreted within a comprehensive clinical context. If you have questions about the radiology report, please contact the office of the ordering clinician. Narrative 01/19/2023 4:[address] ABDOMEN PELVIS WITH AND WITHOUT CONTRAST HEMATURIA/RENAL MASS PROTOCOL, 01/19/2023 11:10 AM CLINICAL HISTORY: Hematuria. R31.0-Gross [id number]-[id number]-89-CM. COMPARISON: The Dr. Marin. 3. No flow there is a hematuria protocol 1 PROCEDURE COMMENTS: Multi-detector CT scanning of the abdomen with multiplanar reformatting following the hematuria protocol. Imaging included non-contrast and contrast enhanced phases. Excretory phase imaging included. Isovue 370 IV contrast given as recorded in EPIC. Dose 1 : CT DLP Total : 1313.5 mGycm DLP Spiral Max : 1313.5 mGycm Maximum CTDI Vol : 28.2 mGy FINDINGS: LOWER THORAX: Lung bases unremarkable. Mild left-sided gynecomastia visualized. ABDOMEN AND PELVIS: Visualized lung bases clear. Mild left gynecomastia visualized. No renal or ureteral calculi identified. No hydronephrosis. Small low-attenuation probable left renal cortical cysts noted. Bilateral nephrogram symmetric and otherwise unremarkable. Diffuse low-attenuation fatty infiltration liver noted. Liver otherwise unremarkable without focal lesion. Solid viscera otherwise unremarkable. Prior cholecystectomy noted. Distal colonic diverticulosis present. Visualized gastrointestinal tract otherwise unremarkable without oral contrast administration. No pathologic shivani enlargement abdomen or pelvis. No ascites. Urinary bladder unremarkable. Degenerative changes thoracolumbar spine present. Streak artifact off right hip prosthesis noted. Procedure Note Rasheed Marin MD - 01/19/2023 CT ABDOMEN PELVIS WITH AND WITHOUT CONTRAST HEMATURIA/RENAL MASS PROTOCOL, 01/19/2023 11:10 AM CLINICAL HISTORY: Hematuria. R31.0-Gross [id number]-RZQ-51-CM. COMPARISON: The Dr. Marin. 3. No flow there is a hematuria protocol 1 PROCEDURE COMMENTS: Multi-detector CT scanning of the abdomen withmultiplanar reformatting following the hematuria protocol. Imaging includednon-contrast and contrast enhanced phases. Excretory phase imaging included. Isovue 370IV contrast given as recorded in EPIC. Dose 1 : CT DLP Total : 1313.5 mGycm DLP Spiral Max : 1313.5 mGycm Maximum CTDI Vol : 28.2 mGy FINDINGS: LOWER THORAX: Lung bases unremarkable. Mild left-sided gynecomastiavisualized. ABDOMEN AND PELVIS: Visualized lung bases clear. Mild left gynecomastia visualized. No renal or ureteral calculi identified. No hydronephrosis. Small low-attenuation probable left renal cortical cysts noted. Bilateralnephrogram symmetric and otherwise unremarkable. Diffuse low-attenuation fatty infiltration liver noted. Liver otherwise unremarkable without focal lesion. Solid viscera otherwise unremarkable. Prior cholecystectomy noted. Distal colonic diverticulosis present. Visualized gastrointestinal tract otherwise unremarkable without oral contrast administration. No pathologic shivani enlargement abdomen or pelvis. No ascites. Urinary bladder unremarkable. Degenerative changes thoracolumbar spine present. Streak artifact offright hip prosthesis noted. IMPRESSION: No stone or mass identified to explain hematuria. No additional acute finding. - Note: Radiology results need to be interpreted within a comprehensiveclinical context. If you have questions about the radiology report, please contactthe office of the ordering clinician. Indra Coronel MD IMG CT ORDERABLES Final Resu lt * CREATININE ISTAT (01/19/2023 10:58 AM EDT) [facility] Creatinine-iST AT 1.0 0.6 - 1.3 mg/dL 01/19/2023 11:00 AM EDT [facility] Blood BLOOD SPECIMEN / Unknown 01/19/2023 10:58 AM EDT 01/19/2023 11:00 AM EDT Indra Coronel MD POINT OF CARE TEST ORDERABLE S Final Result [facility] [address] [place], [place] [id number] * XR HIP RIGHT AP LATERAL W AP PELVIS (12/04/2022 1:03 PM EDT) Only the most recent of7 resultswithin the time period is included. Narrative [facility]user, Audit - 12/04/2022 1:03 PM EDT Please see physician's note from office encounter for x-ray imaging result Domo Ellis PA-C IMG DIAGNOSTIC IMAGING ORDE RABLES Final Result * (ABNORMAL) COMPREHENSIVE METABOLIC PANEL (02/08/2022 1:07 PM EDT) Only the most recent of7 resultswithin the time period is included. [facility] Sodium 139 136 - 145 mmol/L 02/08/2022 1:27 PM EDT [facility] Potassium 4.2 3.5 - 5.0 mmol/L 02/08/2022 1:27 PM EDT [facility] Chloride 106 98 - 107 mmol/L 02/08/2022 1:27 PM EDT [facility] Total CO2 24 22 - 29 mmol/L 02/08/2022 1:27 PM EDT [facility] Anion Gap 9 7 - 16 mmol/L 02/08/2022 1:27 PM EDT [facility] Calcium 8.4(L) 8.8 - 10.4 mg/dL 02/08/2022 1:27 PM EDT [facility] Glucose Lvl 103(H) 82 - 100 mg/dL 02/08/2022 1:27 PM EDT [facility] BUN 14 8 - 23 mg/dL 02/08/2022 1:27 PM EDT [facility] Creatinine 0.79 0.67 - 1.30 mg/dL 02/08/2022 1:27 PM EDT [facility] Albumin 4.0 3.2 - 4.6 gm/dL 02/08/2022 1:27 PM EDT [facility] Total Protein 6.7 6.4 - 8.3 gm/dL 02/08/2022 1:27 PM EDT [facility] Bili Total 0.2 0.1 - 1.4 mg/dL 02/08/2022 1:27 PM EDT [facility] ALT 25 <=41 U/L 02/08/2022 1:27 PM EDT [facility] AST 23 <=40 U/L 02/08/2022 1:27 PM EDT [facility] Alk Phos 88 40 - 129 U/L 02/08/2022 1:27 PM EDT [facility] eGFR (CKD-EPIcr 2020) 98 >=60 mL/min/1.7 3 m2 02/08/2022 1:27 PM EDT [facility] Comment:Estimated GFR was ca lculated using the CKD-EPIcr (2020) equation refit without race. The equation is recommended by the National Kidney Foundation - Citizen Of [place] Society of Nephrology Task Force. Blood VENOUS BLOOD / Unknown Venipuncture / Unknown 02/08/2022 1:07 PM EDT 02/08/2022 1:10 PM EDT us Batool Hopkins MD CHEMISTRY ORDERABLES Final Res ult [facility] [address] [place] [address] * SUTURE REMOVAL (05/12/2021 11:00 AM EST) Narrative [facility]TH[facility] - 05/12/2021 11:00 AM EST Kathi Soto ATC 05/12/2021 11:14 AM Suture Removal Date/Time: 05/12/2021 11:00 AM Performed by: Kathi Soto ATC Authorized by: Tavo Mayberry MD Consent: Consent obtained: Verbal Consent given by: Patient Risks discussed: Bleeding, pain and wound separation Location: Location: Lower extremity Lower extremity location: Hip Hip location: R hip Procedure details: Wound appearance: No signs of infection, good wound healing, clean and pink Post-procedure details: Post-removal: Steri-Strips applied Patient tolerance of procedure: Tolerated well, no immediate complications us Tavo Mayberry MD PROCEDURE/MINOR SURGICAL ORDERABLES Final Result Performing Organization Address City/State/[facility] Co de Phone Number ORTHOCIN[facility] * (ABNORMAL) HEMOGLOBIN AND HEMATOCRIT (04/23/2021 5:32 AM EDT) Only the most recent of9 resultswithin the time period is included. Hgb 8.3(L) 13.7 - 17.5 g/dL 04/23/2021 7:28 AM EDT [facility] [place] Hct 27.2(L) 40.0 - 51.0 % 04/23/2021 7:28 AM EDT [facility] Blood Venipuncture / Unknown 04/23/2021 5:32 AM EDT 04/23/2021 7:09 AM EDT us Jemal George MD HEMATOLOGY ORDERABLES Final Result [facility] [address] [place] [address] , [place] [address] * XR PELVIS (04/21/2021 7:58 PM EDT) Only the most recent of3 resultswithin the time period is included. Anatomical Region Laterality Modality Pelvis Radiographic Casi ging 04/21/2021 7:58 PM EDT Impressions 04/21/2021 8:10 PM EDT No acute bony abnormality. - Note: Radiology results need to be interpreted within a comprehensive clinical context. If you have questions about the radiology report, please contact the office of the ordering clinician. Narrative 04/21/2021 8:10 PM EDT XR PELVIS 04/21/2021 7:58 PM CLINICAL HISTORY: -post op hip surgery COMPARISON: Intraoperative images April 21, 2021. PROCEDURE COMMENTS: AP view of the pelvis. FINDINGS: Right hip arthroplasty is located. Components articulate as expected. Procedure Note Nael Lei MD - 04/21/2021 XR PELVIS 04/21/2021 7:58 PM CLINICAL HISTORY: -post op hip surgery COMPARISON: Intraoperative images April 21, 2021. PROCEDURE COMMENTS: AP view of the pelvis. FINDINGS: Right hip arthroplasty is located. Components articulate asexpected. IMPRESSION: No acute bony abnormality. - Note: Radiology results need to be interpreted within a comprehensiveclinical context. If you have questions about the radiology report, please contactthe office of the ordering clinician. Jemal George MD IMG DIAGNOSTIC IMAGING ORDER PRISCILLA Final Result * XR HIP INTRAOPERATIVE RIGHT 2 VIEW (04/21/2021 4:47 PM EDT) Only the most recent of2 resultswithin the time period is included. Anatomical Region Laterality Modality Hip Radiographic Casi ging 04/21/2021 4:47 PM EDT Impressions 04/21/2021 5:10 PM EDT Satisfactory intraoperative imaging. - Note: Radiology results need to be interpreted within a comprehensive clinical context. If you have questions about the radiology report, please contact the office of the ordering clinician. Narrative 04/21/2021 5:10 PM EDT XR HIP INTRAOPERATIVE RIGHT 2 VIEW, 04/21/2021 4:47 PM CLINICAL HISTORY: -Surgery COMPARISON: None. PROCEDURE COMMENTS: 5 views of the hip obtained intraoperatively with portable equipment. FINDINGS: Intraoperative imaging shows satisfactory hardware positioning. No unexpected finding. Procedure Note Demetrio Coleman MD - 04/21/2021 XR HIP INTRAOPERATIVE RIGHT 2 VIEW, 04/21/2021 4:47 PM CLINICAL HISTORY: -Surgery COMPARISON: None. PROCEDURE COMMENTS: 5 views of the hip obtained intraoperatively withportable equipment. FINDINGS: Intraoperative imaging shows satisfactory hardware positioning.No unexpected finding. IMPRESSION: Satisfactory intraoperative imaging. - Note: Radiology results need to be interpreted within a comprehensiveclinical context. If you have questions about the radiology report, please contactthe office of the ordering clinician. Result [facility] Jemal George MD [facility] DIAGNOSTIC IMAGING ORDER PRISCILLA Final Result * FL < 1 HOUR (04/21/2021 4:43 PM EDT) Only the most recent of3 resultswithin the time period is included. Narrative PACS - 04/21/2021 4:44 PM EDT Fluoroscopy was performed. The radiologist was not in attendance. No permanent images were obtained. This dictation is being made for record keeping purposes. Jemal George MD [facility] FLUOROSCOPY ORDERABLES F inal Result Performing Organization Address [facility] Co de Phone Number PACS * INTRAOP AIRWAY PLACEMENT (04/21/2021 3:20 PM EDT) Narrative [facility] - 04/21/2021 3:20 PM EDT Graeme Simpson CRNA 04/21/2021 3:21 PM Intraop Airway Placement: Induction type: IV and Modified rapid sequence Mask size: Large adult Pre-Oxygenation: BMI guided pre-O2 Mask ventilation: Easy mask ventilation Mask ventilation improved by: Eryn Technique: Video laryngoscope Laryngoscope blade: Longo Blade size: 4 Grade view: I Airway type: ETT- cuffed Intubation assist devices: Stylet 14fr Device size: 7.5mm Secured at: 22 cm Secured by: Tape Measured from: Lips Placement verified: Auscultation, End tidal CO2 and Symmetric chest wall motion Condition: Atraumatic and Unchanged Insertion attempts: 1 Attempt 1 by: TH Title: DEAF INTERPRETER Graeme Simpson CRNA SC ANESTHESIA Final Resul t Performing Organization Address City/[facility] Co de Phone Number [facility] [address] [place] [address] * FUNGUS CULTURE (NO STAIN) (04/21/2021 3:19 PM EDT) Only the most recent of3 resultswithin the time period is included. Culture No growth of fungus at 4 weeks. 05/20/2021 3:50 PM EST [facility] Tissue RIGHT HIP REGION STRUCTURE / Unknown 04/21/2021 3:19 PM EDT 04/21/2021 3:48 PM EDT Jemal George MD MICROBIOLOGY - GENERAL ORDER PRISCILLA Final Result Performing Organization Address [facility] de Phone Number [facility], [address] , [facility] [address] * (ABNORMAL) JOINT FLUID DIFFERENTIAL (04/21/2021 3:19 PM EDT) Only the most recent of3 resultswithin the time period is included. Segs JF 47(H) <25 % 04/21/2021 6:04 PM EDT [facility] Lymphs JF 45 % 04/21/2021 6:04 PM EDT [facility] Macrophages JF 8 % 04/21/2021 6:04 PM EDT [facility], [facility] Body Fluid RIGHT HIP REGION STRUCTURE / Unknown 04/21/2021 3:19 PM EDT 04/21/2021 3:48 PM EDT Jemal George MD BODY FLUIDS AND STOOLS ORDER PRISCILLA Final Result Performing Organization Address [facility] de Phone Number [place] [phone] [facility], [address] , [facility] [place] [phone] * ACID FAST BACILLI CULTURE AND SMEAR (STAIN INCLUDED) (04/21/2021 3:19 PM EDT) Only the most recent of2 resultswithin the time period is included. AFB Stain SEE NOTE 06/17/2021 11:01 PM EST [employer] [employer] Comment:Negative for Acid Fa st Bacteria. AFB Culture SEE NOTE 06/17/2021 11:01 PM EST [facility] Comment: Culture negative for acid fast bacilli Performed by [employer], [address] [place] [address],[place] [id number] [email or web address], Kimmie Bradford MD, Lab. Director Tissue RIGHT HIP REGION STRUCTURE / Unknown 04/21/2021 3:19 PM EDT 04/21/2021 3:48 PM EDT Jemal George MD MICROBIOLOGY - GENERAL ORDER PRISICLLA Final Result Performing Organization Address [facility] de Phone Number [facility] [address] [place] [address] * WOUND CULTURE (STAIN INCLUDED) (04/21/2021 3:19 PM EDT) Only the most recent of3 resultswithin the time period is included. Culture No growth at 94 hours. 04/25/2021 3:35 PM EDT [facility] Stain No WBCs 04/25/2021 3:35 PM EDT [facility] Stain No organisms seen 04/25/2021 3:35 PM EDT [facility] Tissue RIGHT HIP REGION STRUCTURE / Unknown 04/21/2021 3:19 PM EDT 04/21/2021 3:48 PM EDT Jemal George MD MICROBIOLOGY - GENERAL ORDER PRISCILLA Final Result Performing Organization Address [facility] Co de Phone Number [facility] [address] [facility] , [place] [address] * BODY FLUID CULTURE (STAIN INCLUDED) (04/21/2021 3:19 PM EDT) Only the most recent of4 resultswithin the time period is included. Culture No growth at 94 hours. 04/26/2021 7:39 AM EDT [facility] Stain Rare WBCs 04/26/2021 7:39 AM EDT [facility] Stain No organisms seen 04/26/2021 7:39 AM EDT [facility] Body Fluid RIGHT HIP REGION STRUCTURE / Unknown 04/21/2021 3:19 PM EDT 04/21/2021 3:48 PM EDT Jemal George MD MICROBIOLOGY - GENERAL ORDER PRISCILLA Final Result Performing Organization Address City/[facility] Co de Phone Number [facility] [address] [place] [address] , [place] [place], [place] [id number] * ANAEROBIC CULTURE (NO STAIN) (04/21/2021 3:19 PM EDT) Only the most recent of3 resultswithin the time period is included. Culture No anaerobic growth at 5 days. 04/27/2021 5:01 PM EDT [facility] [employer] Tissue RIGHT HIP REGION STRUCTURE / Unknown 04/21/2021 3:19 PM EDT 04/21/2021 3:48 PM EDT Jemal George MD MICROBIOLOGY - GENERAL ORDER PRISCILLA Final Result Performing Organization Address [facility] de Phone Number PREFERRED [facility] [address] [place] [address] , [place] [address] * (ABNORMAL) JOINT FLUID CELL COUNT (04/21/2021 3:19 PM EDT) Only the most recent of3 resultswithin the time period is included. Color JF Red(A) Yellow, Straw 04/21/2021 6:04 PM EDT [facility] Appear JF Turbid(A) Clear, Slightly Hazy, Hazy 04/21/2021 6:04 PM EDT [facility] RBC JF 274,107 /mcL 04/21/2021 6:04 PM EDT [facility] Total Nucleated Cells JF 541(H) <=150 /mcL 04/21/2021 6:04 PM EDT [facility] [place] Body Fluid RIGHT HIP REGION STRUCTURE / Unknown 04/21/2021 3:19 PM EDT 04/21/2021 3:48 PM EDT Jemal George MD BODY FLUIDS AND STOOLS ORDER PRISCILLA Final Result Performing Organization Address [facility] Co de Phone Number [facility] [address] [place] [address] [employer] [facility] [address] [facility] , [place] [address] * CORONAVIRUS 2019 (04/16/2021 9:40 AM EDT) Only the most recent of4 resultswithin the time period is included. CORONAVIRUS [id number] Not Detected Not Detected 04/17/2021 2:01 AM EDT [facility] Comment: Caution should be exercised when interpreting a result of 'Not Detected'. A result of 'Not Detected' does not rule out COVID-19 and cannot be used as sole basis for treatment or patient management decisions. If COVID-19 is still suspected following a 'Not Detected' result, re-testing should be considered. This test is a nucleic acid amplification test intended for the qualitative detection of nucleic acid from the SARS-CoV-2 in upper respiratory samples collected from individuals suspected of COVID-19. Test is performed on the [employer] platform under the FDA's Emergency Use Authorization (EUA). [employer] Provider Fact Sheet: https://www.fda.gov/media/308792/download [employer] Patient Fact Sheet: https://www.fda.gov/media/311797/download Performed at [facility] [address] [place] [address] CLIA [id number] Swab BOTH ANTERIOR NARES / Unknown 04/16/2021 9:40 AM EDT 04/16/2021 9:40 AM EDT us Jemal George MD MICROBIOLOGY - GENERAL ORDER PRISCILLA Final Result [employer] [facility] [address] [facility] , [place] [address] * XR HIP LEFT AP LATERAL W AP PELVIS (04/15/2021 12:11 PM EDT) Narrative [employer], Linda - 04/15/2021 12:11 PM EDT Please see physician's note from office encounter for x-ray imaging result us Jemal George MD IMG DIAGNOSTIC IMAGING ORDER PRISCILLA Final Result * CT LOWER EXTREMITY RIGHT WO CONTRAST (04/13/2021 1:48 PM EDT) Only the most recent of2 resultswithin the time period is included. Anatomical Region Laterality Modality Leg Computed Tomogra phy 04/13/2021 1:48 PM EDT Impressions 04/13/2021 2:15 PM EDT Interval hardware explantation with antibiotic spacer right hip. Tiny locules of gas within the joint space attributable to joint aspiration earlier today. No bony destruction or periarticular fluid collection is identified. - Note: Radiology results need to be interpreted within a comprehensive clinical context. If you have questions about the radiology report, please contact the office of the ordering clinician. Narrative 04/13/2021 2:[address] LOWER EXTREMITY RIGHT WO CONTRAST, 04/13/2021 1:48 PM CLINICAL HISTORY: Z96.641-Presence of right artificial hip [id number]-[id number]-33-CM. Patient is a history of prior hip arthroplasty, with continued by infection, explantation. Notably, the patient had a right hip joint aspiration earlier today. COMPARISON: CT August 30, 2020. PROCEDURE COMMENTS: Multidetector CT with multiplanar reconstructions per ordered protocol. Dose 1 : CT DLP Total : 423.5 mGycm DLP Spiral Max : 423.5 mGycm Maximum CTDI Vol : 17 mGy FINDINGS: OSSEOUS STRUCTURES AND ARTICULATIONS: Postsurgical changes hardware explantation right hip prosthesis with antibiotic spacer, 3 cerclage wires at the trochanteric region. There are a few tiny locules of gas within the joint, compatible with recent joint aspiration earlier today. No significant joint effusion. There is no fracture, periprosthetic lucency or bony destruction identified. SOFT TISSUES: No periarticular mass lesion or periarticular fluid collection is identified. Procedure Note Anastacio Franco MD - 04/13/2021 CT LOWER EXTREMITY RIGHT WO CONTRAST, 04/13/2021 1:48 PM CLINICAL HISTORY: Z96.641-Presence of right artificial vuljhxgf-IJA-54-CM. Patient is a history of prior hip arthroplasty, with continued byinfection, explantation. Notably, the patient had a right hip joint aspirationearlier today. COMPARISON: CT August 30, 2020. PROCEDURE COMMENTS: Multidetector CT with multiplanar reconstructionsper ordered protocol. Dose 1 : CT DLP Total : 423.5 mGycm DLP Spiral Max : 423.5 mGycm Maximum CTDI Vol : 17 mGy FINDINGS: OSSEOUS STRUCTURES AND ARTICULATIONS: Postsurgical changes hardwareexplantation right hip prosthesis with antibiotic spacer, 3 cerclage wires at the trochanteric region. There are a few tiny locules of gas within thejoint, compatible with recent joint aspiration earlier today. No significantjoint effusion. There is no fracture, periprosthetic lucency or bonydestruction identified. SOFT TISSUES: No periarticular mass lesion or periarticular fluidcollection is identified. IMPRESSION: Interval hardware explantation with antibiotic spacer right hip. Tinylocules of gas within the joint space attributable to joint aspiration earlier today.No bony destruction or periarticular fluid collection is identified. - Note: Radiology results need to be interpreted within a comprehensiveclinical context. If you have questions about the radiology report, please contactthe office of the ordering clinician. us Domo Ellis PA-C IMG CT ORDERABLES Final Res ult * PJI DETECTION (SYNOVASURE)-REF LAB (04/13/2021 8:44 AM EDT) PJI Detection (Synovasure) See Note 04/20/2021 11:50 AM EDT Done In :60 Seconds Comment: Clinical Decision Test Name Result Units Flag Limits SYNOVASURE PJI SYNOVASURE ALPHA DEFENSIN PJI NEGATIVE [id number] NEGATIVE CRP-SF 5.2 mg/L HIGH >=3 [employer] Periprosthetic Joint Infection (PJI) Comprehensive Lab Panel consists of laboratory tests intended for clinical use to aid in the diagnosis of periprosthetic joint infection in synovial fluid (SF) of patients experiencing pain and/or inflammation after total joint arthroplasty. Test performance for joints other than the knee and hip joint, or in joints with spacers or partial joint replacements, has not been established. Test results are intended to be used in conjunction with other diagnostic information, such as patient's clinical history and imaging techniques. Results do not preclude an alternative diagnosis. The laboratory-developed tests (LDTs) used in this panel were developed and their performance characteristics were determined by [facility]. [facility] is certified under the Clinical Laboratories Improvement Amendments of 1988 (CLIA) as qualified to perform high complexity testing. The LDT tests comprising this panel have not been reviewed by the U.S. Food and Drug Administration. For Technical Assistance regarding the [facility] Comprehensive Lab Panel, call the laboratory. [facility] DEVELOPED TESTS- DESCRIPTION AND INTERPRETATION Test Description Specimen Integrity The accuracy of synovial fluid diagnostics tests can be significantly impacted by the quality of the specimen that is submitted for evaluation. As part of specimen analysis, specimen integrity tests are performed. Clinicians are notified when a suboptimal specimen has been submitted, and the test results should be interpreted with caution. The specimen integrity tests assess: - Absorbance at 280 nm (A280) - Specimens that fall outside the normal range for synovial fluid may be diluted by saline or contrast agents - Red Blood Cell Count - Specimens that have elevated levels of RBCs may be diluted by blood Synovial Fluid Synovial Fluid CRP has been CRP demonstrated to be comparable to serum CRP for the detection of PJI. The [employer] PJI LDT diagnostic algorithm utilizes CRP results in conjunction with Alpha Defensin results for the final result determination. A CRP cut-off of 3 mg/L is recommended. [employer]asure Alpha Alpha defensins are antimicrobial Defensin EDWIN peptides released by activated neutrophils in response to infection. The [facility] Alpha Defensin (AD) EDWIN is a qualitative in vitro test developed to detect human alpha defensins 1-3 in the synovial fluid of a person with a suspected joint infection. This test is covered by U.S. patent [id number]. The results are intended to be used in conjunction with other clinical and diagnostic findings to aid in the diagnosis of infection. [employer] The [employer] Neutrophil Elastase (NE) Neutrophil EDWIN is a qualitative in vitro test Elastase EDWIN that measures neutrophil elastase in synovial fluid. The results are intended to be used as a proxy for neutrophil detection in synovial fluid. [employer] The [facility] Microbial Identification Microbial ID Panel (MID) Test is a qualitative in vitro diagnostic test intended for the early detection of microbial antigen in synovial fluid. The test measures antigens from Staphylococcus sp., Nisa sp., Enterococcus sp. and Cutibacterium acnes (formerly called P. acnes) in the synovial fluid. The results are intended to be used as an adjunct to synovial fluid culture and to detect the presence of an organism in culture negative samples. Performed By: [id number] [id number] [facility], [address] [place] [address] PJI Detection Anatomical Source Right hip 04/20/2021 11:50 AM EDT Done In :60 Seconds Comment: Performed By: [id number] [address] [facility], [address] [place] [address] Body Fluid SYNOVIAL JOINT STRUCTURE / Unknown 04/13/2021 8:44 AM EDT 04/13/2021 8:44 AM EDT us Jemal Rey MD IMMUNOLOGY ORDERABLES Fi nal Result [employer] [address] [place] [address] * JOINT FLUID CRYSTALS (04/13/2021 8:44 AM EDT) [place] JF None Seen None Seen 04/13/2021 11:16 AM EDT [facility] Body Fluid RIGHT HIP REGION STRUCTURE / Unknown 04/13/2021 8:44 AM EDT 04/13/2021 8:44 AM EDT Eric Ellis MD BODY FLUIDS AND STOO LS ORDERABLES Final Result [facility] [address] [facility] , [address] [place] [id number] * (ABNORMAL) SEDIMENTATION RATE AUTOMATED (04/13/2021 8:42 AM EDT) Only the most recent of11 resultswithin the time period is included. Sed Rate 27(H) 0 - 20 mm/hr 04/13/2021 1:21 PM EDT [facility] Blood VENOUS BLOOD / Unknown Venipuncture / Unknown 04/13/2021 8:42 AM EDT 04/13/2021 8:42 AM EDT Domo Ellis PA-C HEMATOLOGY ORDERABLES Final Result Performing Organization Address [facility] de Phone Number [facility] [address] [place] [address] , [place] [address] * (ABNORMAL) C-REACTIVE PROTEIN (04/13/2021 8:42 AM EDT) Only the most recent of11 resultswithin the time period is included. CRP 9.46(H) <=5.00 mg/L 04/13/2021 1:27 PM EDT [facility] Blood VENOUS BLOOD / Unknown Venipuncture / Unknown 04/13/2021 8:42 AM EDT 04/13/2021 8:42 AM EDT us Domo Ellis PA-C CHEMISTRY ORDERABLES Final Result Performing Organization Address [facility] de Phone Number [facility] [address] [place] [address] , [place] [address] * SC ARTHROCENTESIS ASPIR&/INJ MAJOR JT/BURSA W/US (04/11/2021 1:45 PM EDT) Narrative ORTHOCINCY - 04/11/2021 1:45 PM EDT Eric Ellis MD 04/11/2021 2:20 PM Large Joint Injection/Arthrocentesis: R hip joint on 04/11/2021 1:45 PM Indications: diagnostic evaluation Details: 22 G needle, ultrasound-guided anterior approach Procedure, treatment alternatives, risks and benefits explained, specific risks discussed. Consent was given by the patient. Immediately prior to procedure a time out was called to verify the correct patient, procedure, equipment, network support and site/side marked as required. Patient was prepped and draped in the usual sterile fashion. us Eric Ellis MD PROCEDURE/MINOR SURG ICAL ORDERABLES Final Result Performing Organization Address [facility] de Phone Number ORTHOCINCY * BB HISTORY CHECK (04/08/2021 12:22 PM EDT) Only the most recent of2 resultswithin the time period is included. BB HISTORY CHECK (1) Previous History OK 04/08/2021 1:35 PM EDT [facility] Blood VENOUS BLOOD / Unknown Venipuncture / Unknown 04/08/2021 12:22 PM EDT 04/08/2021 12:25 PM EDT us Jemal George MD BLOOD BANK ORDERABLES Final Result [facility] [address] [address] * SURGERY DATE (04/08/2021 12:22 PM EDT) Only the most recent of2 resultswithin the time period is included. Surgery Date (1) Complete 04/08/2021 1:36 PM EDT [facility] Blood VENOUS BLOOD / Unknown Venipuncture / Unknown 04/08/2021 12:22 PM EDT 04/08/2021 12:25 PM EDT us Jemal George MD BLOOD BANK ORDERABLES Final Result [facility] [address] [address] * ABORH (04/08/2021 12:22 PM EDT) Only the most recent of2 resultswithin the time period is included. ABORH Int O POS 04/08/2021 2:0 5 PM EDT [facility] Blood VENOUS BLOOD / Unknown Venipuncture / Unknown 04/08/2021 12:22 PM EDT 04/08/2021 12:25 PM EDT us Jemal George MD BLOOD BANK ORDERABLES Final Result [facility] [place] [id number] * ANTIBODY SCREEN IGG (04/08/2021 12:22 PM EDT) Only the most recent of2 resultswithin the time period is included. [facility] ABSC IgG Int Negative 04/08/2021 2:12 PM EDT [facility] Blood VENOUS BLOOD / Unknown Venipuncture / Unknown 04/08/2021 12:22 PM EDT 04/08/2021 12:25 PM EDT us Jemal George MD BLOOD BANK [place] [address] * FECAL HEME (FIT) OCCULT BLOOD (02/07/2021 11:19 AM EDT) [facility] Fecal Immunochemical Test Negative Negative 02/07/2021 5:14 PM EDT [facility] Stool COLON STRUCTURE / Unknown 02/07/2021 11:19 AM EDT 02/07/2021 12:17 PM EDT Francisca Munoz MD IMMUNOLOGY ORDERABLES Final Result [facility] [address] [place] [address], [place] [address] * (ABNORMAL) GLUCOSE METER POC (02/02/2021 4:34 PM EDT) Only the most recent of2 resultswithin the time period is included. [facility] Glucose Meter POC 138(H) 70 - 100 mg/dL 02/02/2021 4:36 PM EDT [facility] Sample Type Capillary 02/02/2021 4:36 PM EDT [facility] Patient Status Non-Critical Patient 02/02/2021 4:36 PM EDT [facility] Blood BLOOD SPECIMEN / Unknown 02/02/2021 4:34 PM EDT 02/02/2021 4:36 PM EDT us Francisca Munoz MD POINT OF CARE TEST ORDERABLE S Final Result [facility] [address] [place], [place] [id number] * SCANNED RHYTHM STRIPS (02/02/2021 9:58 AM EDT) Only the most recent of2 resultswithin the time period is included. Anatomical Region Laterality Modality Other 02/02/2021 9:58 AM EDT us Unknown Unknown IMG ECG ORDERABLES Final Result * PATHOLOGY TISSUE REQUEST (01/28/2021 3:28 PM EDT) CASE REPORT Surgical Pathology Case: [id number] Authorizing Provider: Jemal George MD Collected: 01/28/2021 1528 Ordering Location: [facility] Received: 01/31/2021 1021 Pathologist: Sabine Sosa MD Specimen: Hip, Right 02/02/2021 8:03 AM EDT [facility] FINAL DIAGNOSIS Right hip tissue, excision: - Benign synovial tissue with acute and chronic inflammation. - Greater than 20 neutrophils per high power field are noted. - Negative for cytologic atypia or malignancy. 02/02/2021 8:03 AM EDT [facility] at 0803 EDT GROSS DESCRIPTION The specimen is received in formalin, labeled with the patient's name, medical record number, and hip, right . It consists of three irregular fragments of fleming-arenas, hemorrhagic soft tissue, ranging from 0.8 x 0.6 x 0.1 cm to 3.1 x 1.7 x 1.2 cm. No bone is received as part of the specimen. Medical Orderly sections are submitted in cassette A1. BR 02/01/2021 6:04 PM 02/02/2021 8:03 AM EDT [facility] MICROSCOPIC DESCRIPTION Microscopic examination is performed and the findings corroborate the diagnosis 02/02/2021 8:03 AM EDT [facility] EMBEDDED IMAGES 02/02/2021 8:03 AM EDT [facility] Tissue RIGHT HIP REGION STRUCTURE / Unknown 01/28/2021 3:28 PM EDT 01/31/2021 10:21 AM EDT us Jemal George MD PATHOLOGY ORDERABLES Final R esult Performing Organization Address [facility] Co de Phone Number [facility] [address] [place] [address] * INTRAOP AIRWAY PLACEMENT (01/28/2021 3:18 PM EDT) Narrative [facility] - 01/28/2021 3:18 PM EDT Edmund Lowry DEAF INTERPRETER 01/28/2021 3:19 PM Intraop Airway Placement: Date/Time: 01/28/2021 3:11 PM Induction type: IV Mask size: Large adult Pre-Oxygenation: BMI guided pre-O2 Mask ventilation: Not attempted Technique: Video laryngoscope Laryngoscope blade: Longo Blade size: 4 Grade view: I Airway type: ETT- cuffed Topical Anesthetic/Lubricant: Lidocaine 2% jelly Intubation assist devices: Stylet 14fr Airway location: Oral Device size: 8mm Secured at: 24 cm Secured by: Tape Measured from: Lips Placement verified: Auscultation, End tidal CO2 and Symmetric chest wall motion Condition: Atraumatic and Unchanged Insertion attempts: 1 Title: DEAF INTERPRETER us Luis Cameron MD SC ANESTHESIA Final Result Performing Organization Address [facility] Co de Phone Number [facility] [address] [place] [address] * MISCELLANEOUS LAB (12/20/2020 3:13 PM EDT) Pathologist [facility] COMMENT See Scanned Image 12/31/2020 6:29 AM EDT [facility] Body fluid specimen (specimen) RIGHT HIP REGION STRUCTURE / Unknown 12/20/2020 3:13 PM EDT 12/20/2020 3:13 PM EDT us Domo Ellis PA-C HEMATOLOGY ORDERABLES Final Result [facility]TER[facility] LAB [place] [address] * SC ARTHROCENTESIS ASPIR&/INJ MAJOR JT/BURSA W/US (12/20/2020 2:30 PM EDT) Narrative ORTHOCINCY - 12/20/2020 2:30 PM EDT Gracy Aguilar, DORETHA 12/20/2020 3:19 PM Large Joint Injection/Arthrocentesis: R hip joint on 12/20/2020 2:30 PM Indications: pain Details: 22 G needle, ultrasound-guided anterior approach Aspirate: 2.5 mL bloody Outcome: tolerated well, no immediate complications Procedure, treatment alternatives, risks and benefits explained, specific risks discussed. Consent was given by the patient. Immediately prior to procedure a time out was called to verify the correct patient, procedure, equipment, network support and site/side marked as required. Patient was prepped and draped in the usual sterile fashion. us Eric Ellis MD PROCEDURE/MINOR SURG ICAL ORDERABLES Final Result [facility] * NM BONE SCAN WHOLE BODY (09/16/2020 11:53 AM EDT) Anatomical Region Laterality Modality Nuclear Medicine 09/16/2020 11:5 3 AM EDT Impressions 09/16/2020 3:28 PM EDT No pathologic osseous uptake identified regional to the right hip. Areas of degenerative activity as above. - Narrative 09/16/2020 3:28 PM EDT WHOLE BODY BONE SCAN, 09/16/2020 11:53 AM CLINICAL HISTORY: M16.11-Unilateral primary osteoarthritis, right [id number]-[id number]-44-CM T84.84XA-Pain due to internal orthopedic prosthetic devices, implants and grafts, initial encounter ([facility])-ICD-10-CM Z96.649-Presence of unspecified artificial hip iipyo-MFB-02-CM. COMPARISON: CT right hip 08/30/2020 PROCEDURE COMMENTS: 29 mCi of Ej39f-XHD. Whole body bone scanning per protocol. FINDINGS: Photopenia related to right hip prosthesis. No significant periprosthetic activity seen to suggest infection or loosening. There is degenerative activity along the glenohumeral and AC joints. Some mild degenerative activity along thoracolumbar spine, knees, feet. Some urine contamination seen along the anterior abdomen and inner thighs. Procedure Note Ilya Yancey MD - 09/16/2020 WHOLE BODY BONE SCAN, 09/16/2020 11:53 AM CLINICAL HISTORY: M16.11-Unilateral primary osteoarthritis, ojusmftk-TSV-00-CM T84.84XA-Pain due to internal orthopedic prosthetic devices, implantsand grafts, initial encounter (HCC)-ICD-10-CM Z96.649-Presence of unspecified artificial hip xieny-DKS-94-CM. COMPARISON: CT right hip 08/30/2020 PROCEDURE COMMENTS: 29 mCi of [id number]. Whole body bone scanning per protocol. FINDINGS: Photopenia related to right hip prosthesis. No significantperiprosthetic activity seen to suggest infection or loosening. There is degenerativeactivity along the glenohumeral and AC joints. Some mild degenerative activityalong thoracolumbar spine, knees, feet. Some urine contamination seen alongthe anterior abdomen and inner thighs. IMPRESSION: No pathologic osseous uptake identified regional to the right hip. Areas of degenerative activity as above. - us Domo Ellis PA-C IMG NM ORDERABLES Final Res ult * INTRAOP AIRWAY PLACEMENT (06/11/2019 7:42 AM EST) Narrative [facility] - 06/11/2019 7:42 AM EST Gopal Morales CRNA 06/11/2019 7:43 AM Intraop Airway Placement: Airway type: Nasal cannula salter us Po Daley DO SC ANESTHESIA Final Res ult [facility] [address] [place] [address] * INTRAOP AIRWAY PLACEMENT (05/28/2019 8:07 AM EST) Narrative [facility] - 05/28/2019 8:07 AM EST Lou Rivera CRNA 05/28/2019 8:07 AM Intraop Airway Placement: Airway type: Nasal cannula salter Bert Umanzor MD SC ANESTHESIA Final Resul t Performing Organization Address [facility] Co de Phone Number [facility] [address] [place] [address] * INTRAOP AIRWAY PLACEMENT (02/13/2019 10:11 AM EDT) Narrative [facility] - 02/13/2019 10:11 AM EDT Jossie Guzman CRNA 02/13/2019 10:12 AM Intraop Airway Placement: Date/Time: 02/13/2019 9:44 AM Induction type: IV Mask size: Standard adult Pre-Oxygenation: Standard Mask ventilation: Moderate mask ventilation Mask ventilation improved by: Oral airway Oral airway sizes: 110 Technique: Video laryngoscope Laryngoscope blade: Longo Blade size: 4 Grade view: I Airway type: ETT- cuffed Topical Anesthetic/Lubricant: None Airway location: Oral Device size: 7.5mm Secured at: 22 cm Secured by: Tape Measured from: Lips Placement verified: Auscultation, Symmetric chest wall motion and End tidal CO2 Condition: Unchanged and Atraumatic Insertion attempts: 1 Attempt 1 by: David Guzman Title: DEAF INTERPRETER Procedure Note Jossie Guzman CRNA - 02/13/2019 10:11 AM EDT Intraop Airway Placement: Date/Time: 02/13/2019 9:44 AM Induction type: IV Mask size: Standard adult Pre-Oxygenation: Standard Mask ventilation: Moderate mask ventilation Mask ventilation improved by: Oral airway Oral airway sizes: 110 Technique: Video laryngoscope Laryngoscope blade: Longo Blade size: 4 Grade view: I Airway type: ETT- cuffed Topical Anesthetic/Lubricant: None Airway location: Oral Device size: 7.5mm Secured at: 22 cm Secured by: Tape Measured from: Lips Placement verified: Auscultation, Symmetric chest wall motion and Endtidal CO2 Condition: Unchanged and Atraumatic Insertion attempts: 1 Attempt 1 by: David Guzman Title: DEAF INTERPRETER us Johnnie Mejía MD SC ANESTHESIA Final Result Performing Organization Address [facility] Co de Phone Number [facility] [address] [place] [address] * Peripheral Block by Anesthesia (02/13/2019 8:44 AM EDT) Narrative [facility] - 02/13/2019 8:44 AM EDT Johnnie Mejía MD 02/13/2019 8:45 AM Peripheral Block by Anesthesia Procedure Date/Time: 02/13/2019 8:40 AM Patient location during procedure: pre-op Reason for block: at surgeon's request Staff and Pre-procedure checks Anesthesiologist: Johnnie Mejía MD Performed: anesthesiologist Preanesthetic Checklist: Allergies confirmed, Block plan confirmed, Necessary block equipment present, Supplemental O2 applied, if needed, Anticoagulant confirmed, Block site marked, Patient identified- 2 criteria, Surgical procedure consent verified, Aseptic technique used, Drug/solution labeled, Resuscitaion equipment available, DESIRE recommended monitors applied, IV access functioning and Sedation given, if needed Immediate perianesthetic assessment completed: Yes Patient position: Prep: Chloraprep and Patient Draped Monitoring: EKG, O2 Sat and Mental status assessed Peripheral Block Block type: Fascia Iliaca Block Laterality: Right Injection technique: single-shot Medication: 30ml, Ropivacaine 0.2% Needle Needle type: Stimuplex Needle gauge: 21 G Needle length: 6 in (150mm) Nerve localization: ultrasound guidance (Fascia Iliaca block- Sartorius and Iliacus muscle and fascia Iliaca, Femoral arterty, Femoral vein and Femoral nerve are identified; the tip of the needle and the spread of the local anesthetic above the Fascia Iliaca are visualized.) Ultrasound probe: linear Ultrasound needle approach: in-plane Needle depth (structur to skin): 6 cm Assessment Block success: complete Events: Uneventful Heart rate change: no Blood aspirated: no Paresthesia pain: none Resistance on injection: normal Intermittent incremental injection LA at 5ml LA surrounding nerve by ultrasonographc visualization Procedure Note Johnnie Mejía MD - 02/13/2019 8:44 AM EDT Peripheral Block by Anesthesia Procedure Date/Time: 02/13/2019 8:40 AM Patient location during procedure: pre-op Reason for block: at surgeon's request Staff and Pre-procedure checks Anesthesiologist: Johnnie Mejía MD Performed: anesthesiologist Preanesthetic Checklist: Allergies confirmed, Block plan confirmed,Necessary block equipment present, Supplemental O2 applied, if needed,Anticoagulant confirmed, Block site marked, Patient identified- 2criteria, Surgical procedure consent verified, Aseptic technique used,Drug/solution labeled, Resuscitaion equipment available, DESIRE recommendedmonitors applied, IV access functioning and Sedation given, if needed Immediate perianesthetic assessment completed: Yes Patient position: Prep: Chloraprep and Patient Draped Monitoring: EKG, O2 Sat and Mental status assessed Peripheral Block Block type: Fascia Iliaca Block Laterality: Right Injection technique: single-shot Medication: 30ml, Ropivacaine 0.2% Needle Needle type: Stimuplex Needle gauge: 21 G Needle length: 6 in (150mm) Nerve localization: ultrasound guidance (Fascia Iliaca block- Sartoriusand Iliacus muscle and fascia Iliaca, Femoral arterty, Femoral vein andFemoral nerve are identified; the tip of the needle and the spread of thelocal anesthetic above the Fascia Iliaca are visualized.) Ultrasound probe: linear Ultrasound needle approach: in-plane Needle depth (structur to skin): 6 cm Assessment Block success: complete Events: Uneventful Heart rate change: no Blood aspirated: no Paresthesia pain: none Resistance on injection: normal Intermittent incremental injection LA at 5ml LA surrounding nerve by ultrasonographc visualization us Johnnie Mejía MD ANESTHESIA ORDERABLES Final R esult Performing Organization Address [facility] [place] [address] * POCT EKG (01/21/2019 9:35 AM EDT) Only the most recent of2 resultswithin the time period is included. 01/21/2019 9:35 AM EDT Impressions SE[facility] OFFICE - 01/21/2019 9:35 AM EDT Sinus rhythm Mild intraventricular conduction delay Sanket us Weston Coles MD POINT OF CARE CARDIOLOGY Fin al Result Performing Organization Address [facility] Co de Phone Number SEP OFFICE * SCANNED RADIOLOGY REPORT (11/13/2017 9:56 AM EDT) Only the most recent of2 resultswithin the time period is included. Anatomical Region Laterality Modality Other 11/13/2017 9:56 AM EDT us Unknown Unknown IMG DIAGNOSTIC IMAGING ORDERABLE S Final Result * NM MYOCARDIAL PERFUSION SPECT STRESS AND REST (11/12/2017 11:51 AM EDT) Anatomical Region Laterality Modality Nuclear Medicine 11/12/2017 11:2 9 AM EDT Impressions 11/12/2017 4:52 PM EDT IMPRESSIONS No evidence of myocardial ischemia or prior myocardial infarction. Dilated left ventricle. Normal left ventricular global systolic function. Narrative Procedure Note Yessica Bone MD - 11/12/2017 IMPRESSION IMPRESSIONS No evidence of myocardial ischemia or prior myocardial infarction. Dilated left ventricle. Normal left ventricular global systolic function. Jemal Avalos MD IMG NM CARDIAC ORDERABLES Fi nal Result * ST STRESS TEST LEXISCAN (11/12/2017 11:13 AM EDT) Anatomical Region Laterality Modality Cardiac Stress T esting 11/12/2017 11:0 0 AM EDT Impressions 11/12/2017 12:20 PM EDT Exercise ECG Report [place] Interpretive Statements Stress Test Lexiscan Reason for Exam: chest pain Ordering Diagnosis: same Resting HR: 61 Peak HR: 97 Resting B/P 121/88 PeaK B/P 139/73 1. Lexiscan 0.4 mg was given IV push at 30 seconds into protocol. 2. Lexiscan injection was done without low level exercise. 3. Termination of test due to protocol completion. 4. Symptoms: no symptoms 5. Aminophylline was not given 6. Myoview scan report pending. 7. Resting EKG: Normal sinus rhythm, normal ECG 8. Arrhythmias: None 9. Conclusion: No significant St changes during vasodilator infusion Electronically Signed On 11-12-2017 12:20:26 EDT by Yessica Bone Narrative Procedure Note Yessica Bone MD - 11/12/2017 IMPRESSION Exercise ECG Report [place] Interpretive Statements Stress Test Lexiscan Reason for Exam: chest pain Ordering Diagnosis: same Resting HR: 61 Peak HR: 97 Resting B/P 121/88 PeaK B/P 139/73 1. Lexiscan 0.4 mg was given IV push at 30 seconds into protocol. 2. Lexiscan injection was done without low level exercise. 3. Termination of test due to protocol completion. 4. Symptoms: no symptoms 5. Aminophylline was not given 6. Myoview scan report pending. 7. Resting EKG: Normal sinus rhythm, normal ECG 8. Arrhythmias: None 9. Conclusion: No significant St changes during vasodilator infusion Electronically Signed On 11-12-2017 12:20:26 EDT by Yessica Bone us Jemal Avalos MD IMG STRESS ORDERABLES Final Result * TROPONIN-T (11/11/2017 1:58 PM EDT) Only the most recent of3 resultswithin the time period is included. Troponin-T <0.01 <0.01 ng/mL 11/11/2017 2:37 PM EDT [facility] Blood VENOUS BLOOD / Unknown Venipuncture / Unknown 11/11/2017 1:58 PM EDT 11/11/2017 2:08 PM EDT Narrative [facility] - 11/11/2017 2:37 PM EDT Ingestion of johnson doses of biotin (>5 mg/day) taken within 8 hours of drawing blood sample can interfere with this immunoassay test. us Janette Oshea DO CHEMISTRY ORDERABLES Final Res ult [facility] [address] [place] [address] * XR CHEST PA AND LATERAL (11/11/2017 7:44 AM EDT) Anatomical Region Laterality Modality Chest Radiographic Casi ging 11/11/2017 7:44 AM EDT Impressions 11/11/2017 7:52 AM EDT No acute finding. Narrative 11/11/2017 7:52 AM EDT PA AND LATERAL CHEST X-RAY, 11/11/2017 7:44 AM CLINICAL HISTORY: -CHEST PAIN COMPARISON: None. PROCEDURE COMMENTS: Frontal and lateral views of the chest. FINDINGS: Cardiovascular structures within normal limits. No pneumonia or effusion. No pneumothorax. Procedure Note Kevon Tomas MD - 11/11/2017 PA AND LATERAL CHEST X-RAY, 11/11/2017 7:44 AM CLINICAL HISTORY: -CHEST PAIN COMPARISON: None. PROCEDURE COMMENTS: Frontal and lateral views of the chest. FINDINGS: Cardiovascular structures within normal limits. No pneumonia or effusion.No pneumothorax. IMPRESSION: No acute finding. Janette Oshea DO IMG DIAGNOSTIC IMAGING ORDERAB LES Final Result * LIPASE LEVEL (11/11/2017 7:25 AM EDT) Lipase Lvl 13 13 - 60 IU/L 11/11/2017 8:17 AM EDT [facility] Blood VENOUS BLOOD / Unknown Venipuncture / Unknown 11/11/2017 7:25 AM EDT 11/11/2017 7:31 AM EDT Janette Oshea DO CHEMISTRY ORDERABLES Final Res ult Performing Organization Address [facility] [place] [address] * TSH REFLEX (11/08/2017 8:08 AM EDT) Pathologist [facility] TSH Reflex 3.760 0.270 - 4.200 mcIU/mL 11/08/2017 1:16 PM EDT [facility] Blood VENOUS BLOOD / Unknown Venipuncture / Unknown 11/08/2017 8:08 AM EDT 11/08/2017 8:09 AM EDT Narrative [facility] - 11/08/2017 1:16 PM EDT Ingestion of johnson doses of biotin (>5 mg/day) taken within 8 hours of drawing blood sample can interfere with this immunoassay test. Vesna De La O APRN CHEMISTRY ORDERABLES Final Res ult Performing Organization Address [facility]/[place] [address] * EC ECHOCARDIOGRAM EXERCISE STRESS W DOPPLER AND COLOR FLOW MAPPING (06/04/2014 9:52 AM EST) Ejection Fraction 55 % PYRAMIS Anatomical Region Laterality Modality Electrocardiogra phy 06/04/2014 9:17 AM EST Impressions 06/04/2014 10:31 AM EST FINDINGS Estimated Left Ventricular Ejection Fraction =55% Left Ventricle Mild left ventricular dilatation. No left ventricular hypertrophy. No obvious regional wall motion abnormalities. Left ventricular ejection fraction is in the normal range. Right Ventricle Mild to moderate right ventricular dilatation. Right Atrium Moderate right atrial dilatation. Left Atrium Moderate left atrial dilatation. Mitral Valve Mild mitral valve thickening. No mitral stenosis. Trace mitral regurgitation. Aortic Valve Structurally normal trileaflet aortic valve. No aortic stenosis. No aortic regurgitation. Tricuspid Valve Structurally normal tricuspid valve. Mild tricuspid regurgitation. Tricuspid regurgitation regurgitant velocity is 2.2 m/sec. Right ventricular systolic pressure estimated at 30 mmHg. Pulmonic Valve Structurally normal pulmonic valve. Pericardium No pericardial effusion. Aorta Aortic root is mildly dilated at 3.8 cm. CONCLUSIONS Stress echo. Treadmill echo. Good exercise tolerance, achieving 8.6 METS and 91 max predicted heart rate. Normal resting echocardiogram. Normal treadmill stress echocardiogram. The resting phase of the study was normal (see diagram). The global left ventricular systolic function improved with stress. No echocardiographic evidence of myocardial ischemia. REST Mild left ventricular dilatation. No left ventricular hypertrophy. No obvious regional wall motion abnormalities. Left ventricular ejection fraction is in the normal range. Mild to moderate right ventricular dilatation. Moderate right atrial dilatation. Moderate left atrial dilatation. Mild mitral valve thickening. No mitral stenosis. Trace mitral regurgitation. Structurally normal tricuspid valve. Mild tricuspid regurgitation. Right ventricular systolic pressure estimated at 30 mmHg. Aortic root is mildly dilated at 3.8 cm. Narrative Procedure Note Weston Coles MD - 06/04/2014 IMPRESSION FINDINGS Estimated Left Ventricular Ejection Fraction =55% Left Ventricle Mild left ventricular dilatation. No left ventricular hypertrophy. No obvious regional wall motion abnormalities. Left ventricular ejection fraction is in the normalrange. Right Ventricle Mild to moderate right ventricular dilatation. Right Atrium Moderate right atrial dilatation. Left Atrium Moderate left atrial dilatation. Mitral Valve Mild mitral valve thickening. No mitral stenosis.Trace mitral regurgitation. Aortic Valve Structurally normal trileaflet aortic valve. No aorticstenosis. No aortic regurgitation. Tricuspid Valve Structurally normal tricuspid valve. Mild tricuspidregurgitation. Tricuspid regurgitation regurgitant velocity is 2.2m/sec. Right ventricular systolic pressure estimated at 30mmHg. Pulmonic Valve Structurally normal pulmonic valve. Pericardium No pericardial effusion. Aorta Aortic root is mildly dilated at 3.8 cm. CONCLUSIONS Stress echo. Treadmill echo. Good exercise tolerance, achieving 8.6 METS and 91 max predicted heartrate. Normal resting echocardiogram. Normal treadmill stress echocardiogram. The resting phase of the study was normal (see diagram). The global left ventricular systolic function improved with stress. No echocardiographic evidence of myocardial ischemia. REST Mild left ventricular dilatation. No left ventricular hypertrophy. No obvious regional wall motion abnormalities. Left ventricular ejection fraction is in the normal range. Mild to moderate right ventricular dilatation. Moderate right atrial dilatation. Moderate left atrial dilatation. Mild mitral valve thickening. No mitral stenosis. Trace mitralregurgitation. Structurally normal tricuspid valve. Mild tricuspid regurgitation. Right ventricular systolic pressure estimated at 30 mmHg. Aortic root is mildly dilated at 3.8 cm. us Weston Coles MD IMG ECHO ORDERABLES Final Re sult * ST STRESS TEST EXERCISE (06/04/2014 9:50 AM EST) Anatomical Region Laterality Modality Electrocardiogra phy 06/04/2014 8:57 AM EST Impressions 06/05/2014 1:20 PM EST [facility] Type of Test: Exercise Reason for Exam: Chest pain. Ordering Diagnosis: Chest pain. Resting HR: 86 Peak HR: 148 Resting B/P 110/60 Peak B/P 150/70 Arrhythmias: None. Baseline EKG: Within normal limits. Conclusion: Normal GXT. 1. METS achieved: 8.6. Exercised for 8 minutes. 2. Target HR achieved: Yes. Reached a peak exercise heart rate of 148 bpm which is 91% of age predicted max. 3. Termination of test due to SOB and fatigue. 4. Symptoms SOB. No chest pain. 5. Imaging pending: Yes. Echo. Electronically Signed On 2014-06-05 13:20:14 EST by Weston Coles Narrative Procedure Note Weston Coles MD - 06/05/2014 IMPRESSION Exercise ECG Report [facility] Interpretive Statements Type of Test: Exercise Reason for Exam: Chest pain. Ordering Diagnosis: Chest pain. Resting HR: 86 Peak HR: 148 Resting B/P 110/60 Peak B/P 150/70 Arrhythmias: None. Baseline EKG: Within normal limits. Conclusion: Normal GXT. 1. METS achieved: 8.6. Exercised for 8 minutes. 2. Target HR achieved: Yes. Reached a peak exercise heart rate of 148bpm which is 91% of age predicted max. 3. Termination of test due to SOB and fatigue. 4. Symptoms SOB. No chest pain. 5. Imaging pending: Yes. Echo. Electronically Signed On 2014-06-05 13:20:14 EST by Weston Coles Weston Coles MD [facility] STRESS ORDERABLES Final Result * XR LUMBAR SPINE AP AND LATERAL (10/20/2011 9:20 AM EDT) Anatomical Region Laterality Modality L-spine Radiographic Casi ging 10/20/2011 Impressions 10/20/2011 10:11 AM EDT IMPRESSION: No fractures. No dislocations. No malalignment. Mild degenerative disc disease L5-S1. Narrative 10/20/2011 10:11 AM EDT Lumbar spine 3 views HISTORY: Back pain. Procedure Note Cruz Morales MD - 10/20/2011 Lumbar spine 3 views HISTORY: Back pain. IMPRESSION: No fractures. No dislocations. No malalignment. Mild degenerative discdisease L5-S1. Result [facility] Buster Su MD G DIAGNOSTIC IMAGING ORDERABLE S Final Result * LDL, CALCULATED (07/27/2010 8:24 AM EST) LDL Calculated 83 mg/dL [facility] Comment: < 100 Optimal 100 - 129 Near or above optimal 130 - 159 Borderline High 160 - 189 High >= 190 Very High Blood specimen (specimen) 07/27/2010 8:24 AM EST 07/27/2010 8:27 AM EST Batool Hopkins MD CHEMISTRY ORDERABLES Final Res ult Performing Organization Address City/[facility] Co de Phone Number [facility] [address] [place] [address] * LIPID PANEL REFLEX (07/27/2010 8:24 AM EST) Cholesterol 149 <=200 mg/dL [facility] Comment: < 200 Desirable 200 - 239 Borderline High >= 240 High Triglyceride 72 <=150 mg/dL [facility] Comment: < 150 Normal 150 - 199 Borderline High 200 - 499 High >= 500 Very High HDL 52 >=40 mg/dL [facility] Comment: > 60 Optimal 40 - 60 Acceptable < 40 Low Blood specimen (specimen) UPPER LIMB STRUCTURE / Unknown 07/27/2010 8:24 AM EST 07/27/2010 8:27 AM EST Narrative [facility] - 07/27/2010 9:40 AM EST Fax arely [phone] us Batool Hopkins MD CHEMISTRY ORDERABLES Final Res ult Performing Organization Address [facility] Co de Phone Number [facility] [address] [place] [phone] Visit Diagnoses Diagnosis Start Date Psoriasis Other psoriasis 07/26/2010 Psoriasis Other psoriasis 07/27/2010 Pain Generalized pain 10/20/2011 HTN (hypertension) Unspecified essential hypertension 05/08/2014 Hyperlipidemia Other and unspecified hyperlipidemia 05/08/2014 Osteoarthritis Osteoarthrosis, unspecified whether generalized or localized, unspecified site 05/08/2014 Obesity Obesity, unspecified 05/08/2014 HTN (hypertension) Unspecified essential hypertension 05/15/2014 Cardiovascular risk factor Other specified personal history presenting hazards to health 05/15/2014 Family history of early CAD Family history of ischemic heart disease 05/15/2014 HTN (hypertension) Unspecified essential hypertension 06/04/2014 Cardiovascular risk factor Other specified personal history presenting hazards to health 06/04/2014 Family history of early CAD Family history of ischemic heart disease 06/04/2014 HTN (hypertension) Unspecified essential hypertension 06/04/2014 Cardiovascular risk factor Other specified personal history presenting hazards to health 06/04/2014 Family history of early CAD Family history of ischemic heart disease 06/04/2014 Right hip pain Pain in joint, pelvic region and thigh 05/17/2015 Right hip pain Pain in joint, pelvic region and thigh 05/24/2015 Right hip pain Pain in joint, pelvic region and thigh 05/31/2015 Right hip pain Pain in joint, pelvic region and thigh 06/07/2015 Essential hypertension Unspecified essential hypertension 10/14/2015 Family history of early CAD Family history of ischemic heart disease 10/14/2015 Rapid palpitations Palpitations 10/14/2015 Essential hypertension Unspecified essential hypertension 04/07/2016 Mixed hyperlipidemia 04/07/2016 Rapid palpitations Palpitations 04/07/2016 Family history of early CAD Family history of ischemic heart disease 04/07/2016 Rapid palpitations Palpitations 04/20/2017 Family history of early CAD Family history of ischemic heart disease 04/20/2017 Essential hypertension Unspecified essential hypertension 04/20/2017 Shortness of breath 11/07/2017 Class 3 severe obesity due to excess calories without serious comorbidity with body mass index (BMI) of 40.0 to 44.9 in adult 11/07/2017 Family history of heart disease 11/07/2017 Tobacco abuse Tobacco use disorder 11/07/2017 Dyslipidemia Other and unspecified hyperlipidemia 11/07/2017 Shortness of breath 11/08/2017 Chest pain, unspecified type 11/11/2017 Atypical chest pain Other chest pain 02/04/2018 Essential hypertension Unspecified essential hypertension 02/04/2018 Family history of early CAD Family history of ischemic heart disease 02/04/2018 Class 2 severe obesity due to excess calories with serious comorbidity and body mass index (BMI) of 35.0 to 35.9 in adult (HCC) 02/04/2018 Plaque psoriasis Other psoriasis 08/01/2018 High risk medication use Encounter for long-term (current) use of other medications 08/01/2018 Pre-operative cardiovascular examination 01/21/2019 Atypical chest pain Other chest pain 01/21/2019 Essential hypertension Unspecified essential hypertension 01/21/2019 Anticoagulation adequate Encounter for long-term (current) use of anticoagulants 01/29/2019 Osteoarthritis of right hip, unspecified osteoarthritis type 02/13/2019 Nuclear sclerotic cataract of right eye Senile nuclear sclerosis 05/28/2019 Nuclear sclerotic cataract of left eye Senile nuclear sclerosis 06/11/2019 Atypical chest pain Other chest pain 02/12/2020 Family history of early CAD Family history of ischemic heart disease 02/12/2020 Essential hypertension Unspecified essential hypertension 02/12/2020 Rapid palpitations Palpitations 02/12/2020 Right hip pain Pain in joint, pelvic region and thigh 08/30/2020 Pain in right hip Pain in joint, pelvic region and thigh 09/07/2020 Presence of right artificial hip joint Hip joint replacement by other means 09/07/2020 Right hip pain Pain in joint, pelvic region and thigh 09/07/2020 Presence of right artificial hip joint Hip joint replacement by other means 09/07/2020 Pain in right hip Pain in joint, pelvic region and thigh 09/14/2020 Pain in right hip Pain in joint, pelvic region and thigh 09/14/2020 Primary osteoarthritis of right hip Primary localized osteoarthrosis, pelvic region and thigh 09/16/2020 Pain due to total hip replacement, initial encounter 09/16/2020 Pain in right hip Pain in joint, pelvic region and thigh 09/21/2020 Presence of right artificial hip joint Hip joint replacement by other means 09/21/2020 Pain in right hip Pain in joint, pelvic region and thigh 09/21/2020 Presence of right artificial hip joint Hip joint replacement by other means 09/21/2020 Pain in right hip Pain in joint, pelvic region and thigh 09/28/2020 Pain in right hip Pain in joint, pelvic region and thigh 10/04/2020 Presence of right artificial hip joint Hip joint replacement by other means 10/04/2020 History of right hip replacement 12/20/2020 Right hip joint effusion Effusion of pelvic joint 12/20/2020 History of right hip replacement 12/20/2020 Atypical chest pain Other chest pain 01/06/2021 Essential hypertension Unspecified essential hypertension 01/06/2021 Mixed hyperlipidemia 01/06/2021 History of right hip replacement 01/11/2021 Pre-op testing Preoperative examination, unspecified 01/19/2021 Encounter for laboratory testing for COVID-19 virus 01/19/2021 Presence of right artificial hip joint Hip joint replacement by other means 01/19/2021 History of right hip replacement 01/19/2021 Pre-op testing Preoperative examination, unspecified 01/24/2021 Encounter for laboratory testing for COVID-19 virus 01/24/2021 Presence of right artificial hip joint Hip joint replacement by other means 01/28/2021 Presence of right artificial hip joint Hip joint replacement by other means 01/28/2021 Insomnia, unspecified type 02/01/2021 Pain Generalized pain 02/01/2021 Constipation, unspecified constipation type 02/01/2021 Healthcare maintenance Routine general medical examination at a health care facility 02/01/2021 History of removal of joint prosthesis of right hip due to infection 02/01/2021 Infection of prosthetic joint, initial encounter 02/01/2021 Hyperlipidemia, unspecified hyperlipidemia type 02/01/2021 Arthritis Arthropathy, unspecified, site unspecified 02/01/2021 DVT prophylaxis Encounter for long-term (current) use of anticoagulants 02/01/2021 Postoperative anemia Anemia, unspecified 02/01/2021 Seasonal allergies Allergic rhinitis, cause unspecified 02/01/2021 Tuberculosis screening Screening examination for pulmonary tuberculosis 02/01/2021 Itching Unspecified pruritic disorder 02/01/2021 Morbid obesity with BMI of 40.0-44.9, adult (HCC) 02/01/2021 Nausea Nausea alone 02/01/2021 Presence of right artificial hip joint Hip joint replacement by other means 03/08/2021 Pain Generalized pain 02/24/2021 Insomnia, unspecified type 02/24/2021 Constipation, unspecified constipation type 02/24/2021 Healthcare maintenance Routine general medical examination at a health care facility 02/24/2021 Itching Unspecified pruritic disorder 02/24/2021 Postoperative anemia Anemia, unspecified 02/24/2021 Nausea Nausea alone 02/24/2021 DVT prophylaxis Encounter for long-term (current) use of anticoagulants 02/24/2021 Hyperlipidemia, unspecified hyperlipidemia type 02/24/2021 Seasonal allergies Allergic rhinitis, cause unspecified 02/24/2021 Morbid obesity with BMI of 40.0-44.9, adult (HCC) 02/24/2021 Infection of prosthetic joint, initial encounter 02/24/2021 History of removal of joint prosthesis of right hip due to infection 02/24/2021 Infection associated with internal right hip prosthesis, subsequent encounter 02/24/2021 Preop testing Preoperative examination, unspecified 04/08/2021 Presence of right artificial hip joint Hip joint replacement by other means 04/08/2021 Infection associated with internal right hip prosthesis, subsequent encounter 04/08/2021 Anticoagulation adequate Encounter for long-term (current) use of anticoagulants 04/08/2021 Presence of right artificial hip joint Hip joint replacement by other means 04/11/2021 Presence of right artificial hip joint Hip joint replacement by other means 04/12/2021 Presence of right artificial hip joint Hip joint replacement by other means 04/13/2021 Presence of right artificial hip joint Hip joint replacement by other means 04/13/2021 Right hip pain Pain in joint, pelvic region and thigh 04/13/2021 Presence of right artificial hip joint Hip joint replacement by other means 04/13/2021 Left hip pain Pain in joint, pelvic region and thigh 04/15/2021 Left hip pain Pain in joint, pelvic region and thigh 04/15/2021 Pre-op testing Preoperative examination, unspecified 04/16/2021 Encounter for laboratory testing for COVID-19 virus 04/16/2021 Infection associated with internal right hip prosthesis, subsequent encounter 04/19/2021 Psoriatic arthritis (HCC) Psoriatic arthropathy 04/19/2021 Presence of right artificial hip joint Hip joint replacement by other means 04/21/2021 Presence of right artificial hip joint Hip joint replacement by other means 04/21/2021 Status post total replacement of right hip 04/28/2021 Status post total replacement of right hip 05/06/2021 Status post total replacement of right hip 05/06/2021 Status post total replacement of right hip 05/12/2021 Status post total replacement of right hip 05/30/2021 Psoriatic arthritis (HCC) Psoriatic arthropathy 06/02/2021 Right hip pain Pain in joint, pelvic region and thigh 06/20/2021 Right hip pain Pain in joint, pelvic region and thigh 06/20/2021 Status post total replacement of right hip 06/21/2021 Psoriatic arthritis (HCC) Psoriatic arthropathy 08/25/2021 Psoriatic arthritis (HCC) Psoriatic arthropathy 11/17/2021 Status post total replacement of right hip 12/19/2021 Status post revision of total hip Hip joint replacement by other means 12/19/2021 Atypical chest pain Other chest pain 01/06/2022 Family history of early CAD Family history of ischemic heart disease 01/06/2022 Primary hypertension Unspecified essential hypertension 01/06/2022 Mixed hyperlipidemia 01/06/2022 Psoriatic arthritis (HCC) Psoriatic arthropathy 02/08/2022 Psoriatic arthritis (HCC) Psoriatic arthropathy 05/03/2022 Status post revision of total hip Hip joint replacement by other means 07/31/2022 Status post revision of total hip Hip joint replacement by other means 07/31/2022 Psoriatic arthritis (HCC) Psoriatic arthropathy 08/08/2022 Status post total replacement of right hip 12/04/2022 Status post total replacement of right hip 12/04/2022 Status post total replacement of right hip 01/04/2023 Gross hematuria 01/19/2023 Primary hypertension Unspecified essential hypertension 01/19/2023 Mixed hyperlipidemia 01/19/2023 Family history of early CAD Family history of ischemic heart disease 01/19/2023 Atypical chest pain Other chest pain 01/19/2023 Rapid palpitations Palpitations 01/19/2023 Chest pain, unspecified type 04/06/2023 Atypical chest pain Other chest pain 04/04/2023 Chest pain, unspecified type 04/04/2023 Melanocytic nevus of trunk Benign neoplasm of skin of trunk, except scrotum 06/05/2023 Other melanin hyperpigmentation 06/05/2023 Other seborrheic keratosis 06/05/2023 Other specified counseling 06/05/2023 Psoriasis vulgaris Other psoriasis 06/05/2023 Other [place] [facility] (current[facility] drug therapy 06/05/2023 Actinic keratosis 06/05/2024 Exposure to sunlight, subsequent encounter 06/05/2024 Exposure to sunlight, initial encounter 06/05/2024 Tinea cruris Dermatophytosis of groin and perianal area 06/05/2024 Psoriasis vulgaris Other psoriasis 06/05/2024 Encounter for long-term (current) use of medications Encounter for long-term (current) use of other medications 06/05/2024 Melanocytic nevus of trunk Benign neoplasm of skin of trunk, except scrotum 06/05/2024 Other melanin hyperpigmentation 06/05/2024 Other seborrheic keratosis 06/05/2024 Other benign neoplasm of skin of left lower limb, including hip 06/05/2024 Other specified counseling 06/05/2024 MOHIT (obstructive sleep apnea) Obstructive sleep apnea (adult) (pediatric) 06/27/2024 MOHIT (obstructive sleep apnea) Obstructive sleep apnea (adult) (pediatric) 07/24/2024 Chest pain Chest pain, unspecified 11/11/2017 HTN (hypertension) Unspecified essential hypertension 11/11/2017 Hyperlipidemia Other and unspecified hyperlipidemia 11/11/2017 Obesity Obesity, unspecified 11/11/2017 Family history of early CAD Family history of ischemic heart disease 11/11/2017 Presence of right artificial hip joint Hip joint replacement by other means 01/28/2021 Prosthetic joint infection Infection and inflammatory reaction due to internal joint prosthesis 01/28/2021 History of removal of joint prosthesis of right hip due to infection 02/01/2021 Prosthetic joint infection Infection and inflammatory reaction due to internal joint prosthesis 02/01/2021 Psoriatic arthritis (HCC) Psoriatic arthropathy 02/01/2021 Morbid obesity with BMI of 40.0-44.9, adult ([facility]) 02/01/2021 Infection of right prosthetic hip joint Infection and inflammatory reaction due to internal joint prosthesis 02/24/2021 Psoriatic arthritis (HCC) Psoriatic arthropathy 02/24/2021 Morbid obesity with BMI of 40.0-44.9, adult ([facility]) 02/24/2021 History of removal of joint prosthesis of right hip due to infection 02/24/2021 Complication of internal hip prosthesis, sequela 04/21/2021 Morbid obesity with BMI of 40.0-44.9, adult ([facility]) 04/04/2023 Psoriatic arthritis (HCC) Psoriatic arthropathy 04/04/2023 Tobacco use Tobacco use disorder 04/04/2023 Bandemia 04/04/2023 Unstable angina (HCC) Intermediate coronary syndrome 04/04/2023 Atypical chest pain Other chest pain 04/04/2023 Goals Goal Patient Goal Type Associated Problems Recent Progress Patient-Stated? Author Blood Pressure < 140/90 Blood Pressure 114/70(2023 7:49 AM EST) No Gloria Santo Maintain a healthy diet, exercise regularly and maintain an ideal body weight General No Gloria Santo Stay Tobacco Free Lifestyle No Gloria Santo Care Teams Restrooms Or Lounges Maid Relationship Specialty Start Date End Date Buster Su MD PCP - General Family Medicine 05/14/15
== END 2025-02-13 23:59 ==
LOC: LAB.DROPOF 02-16 12:43
PROVIDERS: PCP Family Medicine; Visit Provider Family Medicine
DX: R97.20 Elevated prostate specific antigen [PSA] (principal)
CPT/HCPCS: 84153